=== PATIENT | female | born 1950 | race Caucasian/White ===

== ENCOUNTER 2019-11-21 16:14 | Inpatient (IN) | payer OTHER, MEDICARE ==
--- NOTE | 2019-11-21 17:12 | PDOC ---
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 Per retirement, she fell two days ago, witnessed, no LOC, no head trauma. XR at the retirement shows a lucent area of the pelvis. Sent in for CT pelvis because "it would be faster through the ED than outpatient." On presentation pt complaining of right anterior lower leg pain that has been going on for six weeks. No other complaints. No headache/dizziness/vision changes. No chest pain/shortness of breath. No neck or back pain. No abd pain. No leg swelling. She is crossing and uncrossing her legs in bed and able to sit up without pain. Not able to stand or ambulate but states that this is her baseline (and according to retirement). Past History - Medical History Allergies/Adverse Reactions: Allergies Allergy/AdvReac Type Severity Reaction Status Date / Time Penicillins Allergy Verified 11/21/19 16:16 Sulfa (Sulfonamide Allergy Verified 11/21/19 16:16 Antibiotics) zolpidem tartrate Allergy Verified 11/21/19 16:16 [From Ambien] artificial sweetner Allergy Severe Swelling Uncoded 11/21/19 16:16 Camacho beans Allergy Unknown Uncoded 11/21/19 16:16 Home Medications: Ambulatory Orders Aspirin/Dipyridamole [Aggrenox -] 1 combo PO BID 07/05/13 Cinnamon Bark [Cinnamon] 1,000 mg PO DAILY 07/05/13 Duloxetine HCl [Cymbalta -] 60 mg PO HS 07/05/13 Gabapentin 800 mg PO QID 07/05/13 Metformin HCl [Glucophage] 1,000 mg PO BID 07/05/13 Pravastatin Sodium [Pravachol -] 40 mg PO HS 07/05/13 Sitagliptin Phosphate [Januvia] 50 mg PO DAILY 07/05/13 Clindamycin [Cleocin -] 300 mg PO TID #21 capsule 07/09/13 Insulin (Levemir) [Levemir Flexpen -] 15 units SQ DAILY@0700 #1 pen 07/09/13 Labetalol HCl 600 mg PO BID #60 tablet 07/09/13 Lamotrigine [Lamictal] 25 mg PO DAILY #30 tablet 07/09/13 Magnesium Level 07/09/13 Magnesium Oxide [Magox 400] 400 mg PO BID #60 tablet 07/09/13 Ramipril [Altace] 5 mg PO DAILY #30 capsule 07/09/13 levoFLOXacin [Levaquin -] 500 mg PO DAILY #7 tablet 07/09/13 Cardiac Disorders: Yes (cabg x 4 vessel 2006, htn) CVA: Yes (multiple) COPD: No Diabetes: Yes HTN: Yes Hypercholesterolemia: Yes - Surgical History Cardiac Surgery: Yes (quadruple bypass) Orthopedic Surgery: Yes (3 laminectomies with fusions) - Immunization History Immunization Up to Date: Yes - Psycho-Social/Smoking History Smoking History: Never smoked Have you smoked in the past 12 months: No Information on smoking cessation initiated: No - Substance Abuse Hx (Audit-C & DAST Scrn) How often the patient has a drink containing alcohol: Never Score: In Men: 4 or > Positive; In Women: 3 or > Positive: 0 Screen Result (Pos requires Nsg. Audit-10AR): Negative In the last yr the pt used illegal drug/Rx for NonMed reason: No Score: Yes response is considered Positive: 0 Screen Result (Positive result requires Nsg. DAST-10): Negative Review of Systems - Review of Systems Comments:: GENERAL/CONSTITUTIONAL: No fever or chills. No weakness._ HEAD, EYES, EARS, NOSE AND THROAT: No change in vision. No change in hearing. No sore throat._ CARDIOVASCULAR: No chest pain or shortness of breath_ RESPIRATORY: Denies cough, hemoptysis_ GASTROINTESTINAL: No nausea, vomiting, diarrhea or constipation._ GENITOURINARY: No dysuria, frequency, or change in urination._ MUSCULOSKELETAL: No joint or muscle swelling. Reports chronic right lower leg pain. No neck or back pain._ SKIN: No rash_ NEUROLOGIC: No headache, vertigo, loss of consciousness, or change in strength/sensation._ ENDOCRINE: No increased thirst. No abnormal weight change_ HEMATOLOGIC/LYMPHATIC: No anemia, easy bleeding, or history of blood clots._ ALLERGIC/IMMUNOLOGIC: No hives or skin allergy._ *Physical Exam - Vital Signs Last Vital Signs Temp Pulse Resp BP Pulse Ox 98.4 F 68 18 139/52 L 97 11/21/19 16:15 11/21/19 16:15 11/21/19 16:15 11/21/19 16:15 11/21/19 16:15 - Physical Exam GENERAL: Awake, alert, and oriented to person/place/time, in no acute distress_ HEAD: No signs of trauma, normocephalic, atraumatic _ EYES: PERRLA, EOMI, sclera anicteric, conjunctiva clear_ ENT: Hearing grossly normal, nares patent, oropharynx clear without exudates. No uvular deviation. Moist mucosa_ NECK: Normal ROM, supple, no lymphadenopathy, JVD, or masses_ LUNGS: No distress, speaks in full sentences, clear to auscultation bilaterally _ HEART: Regular rate, normal S1 and S2, no murmurs appreciated, peripheral pulses normal and equal bilaterally._ ABDOMEN: Soft, nontender, normoactive bowel sounds. No guarding, no rebound. No masses_ EXTREMITIES: Mild TTP right anterior tibia with no obvious bruising or trauma. Normal range of motion, no edema. No clubbing or cyanosis. No hip TTP bilaterally. DP/PT pulses 2+ bilaterally. NEUROLOGICAL: Cranial nerves II through XII grossly intact. Dysarthric and mild word finding difficult. Gait not assessed due to inability to bear weight. Mild intention tremor of bilateral upper extremities (known Parkinson's disease). Sensation intact in upper and lower extremities and face. Hip flexion/extension 5/5 strength bilaterally. SKIN: Warm, Dry, normal turgor, no rashes or lesions noted_ Medical Decision Making - Medical Decision Making 11/21/19 17:12 69F sent in from retirement for CT pelvis after fall two days ago and XR pelvis with translucency. On exam pt is able to flex/extend her hips bilaterally, 5/5 strength and sensation lower extremities bilaterally. No hip joint TTP. Able to sit up in bed. Full ROM. 11/21/19 17:22 Shared decision making with the patient and patient's friend at bedside. Reports that she is currently at her baseline neurologically and with regards to ambulation. No indication for CT scan at this time at the pt is not in any pain, crossing/uncrossing her legs, able to sit up, neurovascularly intact distally. Plan to d/c back to rehab to continue care. Discharge - Discharge Information Problems reviewed: Yes Clinical Impression/Diagnosis: Fall Qualifiers: Encounter type: subsequent encounter Qualified Code(s): W19.XXXD - Unspecified fall, subsequent encounter Condition: Stable Disposition: HOME - Admission No - Follow up/Referral - Patient Discharge Instructions - Post Discharge Activity
--- NOTE | 2019-11-21 17:41 | PDOC ---
Documentation entered by Idalia Patel SCRIBE, acting as scribe for Trish Nash MD. Trish Nash MD: This documentation has been prepared by the erikaibeAmanda Sydney, SCRIBE, under my direction and personally reviewed by me in its entirety. I confirm that the documentation accurately reflects all work, treatment, procedures, and medical decision making performed by me. Attending Attestation - Resident Resident Name: Leland Buck - ED Attending Attestation I have performed the following: I have examined & evaluated the patient, The case was reviewed & discussed with the resident, I agree w/resident's findings & plan, Exceptions are as noted - HPI HPI: 11/21/19 17:27 69YOF with h/o multiple CVAs, speech deficits at baseline, Parkinson'sdisease, CKD Stage 3, GERD, and A-fib, who was BIBEMS from her NH for unchanged subacute/chronic hip pain, a fall 2 days ago, and a "lucency on hip x-ray" per the retirement report. She had a NH-reported witnessed GLF without hitting her head or losing consciousness. NH staff note that they decided to send her to the ED for hip/pelvis CT because it would be quicker than doing it as outpatient. The patient herself and her friend who accompanies her note lower right leg pain which has been present for many weeks, prior to the fall. She denies hip pain, states she feels well and wants to go back home. - Physicial Exam PE: GENERAL: elderly, nontoxic-appearing, no distress, answers simple questions appropriately, accompanied by friend standing at bedside who assists in history and states patient is A/O per baseline and mentating at baseline HEENT: no obvious e/o facial or scalp trauma, PERRLA, EOMI without pain CHEST WALL: no costal stepoff or deformity, no bruises or lesions CARDIOVASCULAR: regular rhythm, normal S1S2, no MGR, capillary refill <2 seconds RESPIRATORY: symmetric chest expansion on inspiration, no increased WOB, no cyanosis ABDOMEN: abdomen soft, nondistendedd, nontender, pelvis stable and nonpainful ROM, no bruising EXTREMITIES: no obvious deformity, full ROM without pain BLE hips/knees/ankles, no tenderness to palpation right or left hips to inguinal region or laterally overlying greater trochanter, minimal tenderness to palpation anterior tibia, extremities wwp x4, 2+ radial and DP pulses bilaterally NECK&BACK: no neck or back hematoma, no midline vertebral tenderness C/T/L sp ine, no spinal step-off or deformity, no paraspinous ttp CTL spine NEURO: CN II-XII grossly intact, 5/5 strength and intact sensation throughout BUE and BLE : no CVA tenderness SKIN: warm and dry, no pallor, no lacerations, no abrasions, no contusions or ecchymoses to proximal BLE - Medical Decision Making 69YOF with Parkinsons, multiple CVA, p/w multiple falls over the past few months and sent from [place] for [place] because patient reported vague right hip pain intermittently x weeks. Initial Vital Signs Temp Pulse Resp BP Pulse Ox 98.4 F 68 18 139/52 L 97 11/21/19 16:15 11/21/19 16:15 11/21/19 16:15 11/21/19 16:15 11/21/19 16:15 DDX IBNLT: most likely strain/sprain, osteoarthritis, overuse, hip effusion, less likely hip/pelvis/femur fxr or hip dislocation because the patient has no pain on ROM, no tenderness at this time, and has been c/o this pain reportedly for weeks. TX ordered: None at this time (patient currently states no pain and appears comfortable) NPO until further notice, patient's care endorsed to Dr. Chau at the end of my shift pending further evaluation and workup. Discharge - Discharge Information Problems reviewed: Yes Clinical Impression/Diagnosis: Fall Qualifiers: Encounter type: initial encounter Qualified Code(s): W19.XXXA - Unspecified fall, initial encounter Condition: Stable - Follow up/Referral - Patient Discharge Instructions - Post Discharge Activity
--- NOTE | 2019-11-21 20:19 | PDOC ---
*Physical Exam - Vital Signs Last Vital Signs Temp Pulse Resp BP Pulse Ox 98.4 F 68 18 139/52 L 97 11/21/19 16:15 11/21/19 16:15 11/21/19 16:15 11/21/19 16:15 11/21/19 16:15 ED Treatment Course - LABORATORY CBC & Chemistry Diagram: 11/21/19 22:34 11/21/19 22:34 - ADDITIONAL ORDERS Additional order review: Laboratory Results 11/21/19 20:03 POC Glucometer 152 11/21/19 20:03 POC Glucometer 152 Medical Decision Making - Medical Decision Making 11/21/19 20:[address] hip as originally requested, since pt has right hip pain. We will get a straight cath urine specimen as pt is sundowning. 11/21/19 20:19 Pt is afebrile Pt has normal heart rate. Pt is answering questions. Pt is hallucinating and perhaps sundowning. 11/21/19 21:29 Pt has 8K bacteria in her urine, but no leukocytes, no nitrites; no hematuria and no dysuria. 11/21/19 21:57 Pt has a right hip fracture and she will be admitted; preop labs will be done Discharge - Discharge Information Problems reviewed: Yes Clinical Impression/Diagnosis: Fall Qualifiers: Encounter type: initial encounter Qualified Code(s): W19.XXXA - Unspecified fall, initial encounter Fracture of femoral neck, right, closed Qualifiers: Encounter type: initial encounter Qualified Code(s): S72.001A - Fracture of unspecified part of neck of right femur, initial encounter for closed fracture Condition: Stable - Follow up/Referral - Patient Discharge Instructions - Post Discharge Activity
--- NOTE | 2019-11-21 20:43 | PDOC ---
*Physical Exam - Vital Signs Last Vital Signs Temp Pulse Resp BP Pulse Ox 98.4 F 68 18 139/52 L 97 11/21/19 16:15 11/21/19 16:15 11/21/19 16:15 11/21/19 16:15 11/21/19 16:15 ED Treatment Course - LABORATORY CBC & Chemistry Diagram: 11/21/19 22:34 11/21/19 22:34 - ADDITIONAL ORDERS Additional order review: Laboratory Results 11/21/19 20:03 POC Glucometer 152 11/21/19 20:03 POC Glucometer 152 - RADIOLOGY Radiology Studies Ordered: Category Date Time Status PELVIS CT WITHOUT CONTRAST [CT] Stat CT Scan 11/21/19 20:18 Ordered Medical Decision Making - Medical Decision Making 11/21/19 20:21 Patient previously seen by Dr Buck, plan to discharge back to SNF. Patient's friend at bedside noted that pt was hallucinating, was concerned that she was not herself. Re-examined patient. Significant tenderness at right hip. Pt also with auditory hallucinations, states she is hearing music, and delusional thinking; she believes she is walking a dog at this time. She states that she has had this happen many times in the past. May be baseline, due to sundowning, but cannot r/o underlying cause. Friend at bedside does report that during a prior hospital admission, Ms Ayers became confused and combative. Will send for CT pelvis due to persistent pain. UA/UCx to evaluate for UTI. 11/21/19 22:32 - UA with bacteria but negative for leuk esterase, nitrites. Culture sent - CT with right femoral neck fracture. Preop labs ordered. Orthopedics paged - Will admit, miroblog sent 11/21/19 22:41 - Spoke to Dr Cerna, will come to evaluate. Requesting xrays of hip/femur, DIMITRI yañez. Plan for possible OR tomorrow Discussed with Dr Kandi Nieto PGY3 Discharge - Discharge Information Problems reviewed: Yes Clinical Impression/Diagnosis: Fall Qualifiers: Encounter type: initial encounter Qualified Code(s): W19.XXXA - Unspecified fall, initial encounter Fracture of femoral neck, right, closed Qualifiers: Encounter type: initial encounter Qualified Code(s): S72.001A - Fracture of unspecified part of neck of right femur, initial encounter for closed fracture Condition: Stable - Admission Yes - Follow up/Referral - Patient Discharge Instructions - Post Discharge Activity
[2019-11-21 20:46] LABS: EPI CELLS 5 /uL (0-25.1); HYALINE CASTS 0 /uL (0-3.1); PH,URINE 5.5 (5.0-8.0); URINE APPEARANCE CLEAR; URINE BACTERIA 8071 /uL (0-1359); URINE BILIRUBIN NEGATIVE (NEGATIVE); URINE COLOR YELLOW; URINE GLUCOSE (UA) NEGATIVE (NEGATIVE); URINE KETONE NEGATIVE (NEGATIVE); URINE LEUK ESTERASE NEGATIVE (NEGATIVE); URINE NITRITE NEGATIVE (NEGATIVE); URINE PROTEIN 2+ (NEGATIVE); URINE RBC 10 /uL (0-23.9); URINE UROBILINOGEN 0.2 mg/dL (0.2-1.0); URINE WBC 14 /uL (0-25.8)
--- NOTE | 2019-11-21 22:41 | PN ---
Teaching Attending Note Name of Resident: Dhruv Monteiro ATTENDING PHYSICIAN STATEMENT I saw and evaluated the patient. I reviewed the resident's note and discussed the case with the resident. I agree with the resident's findings and plan as documented. SUBJECTIVE: Patient is 69 year old woman with a PMH of NIDDM, Multiple CVAs (speech deficits at baseline), Parkinson's disease, Middle ear problem, CKD, GERD and Afib who was brought by EMS from her NH for unchanged subacute/chronic hip pain. She felll 2 days ago, and a "lucency was noted on hip x-ray" per the long-term report. She had a NH-reported witnessed fall without hitting her head or losing consciousness. [facility] staff note that they decided to send her to the ER for hip/pelvis CT because it would be quicker than doing it as outpatient. Uses a wheelchair. The patient herself and her friend who accompanied her note lower right leg pain which has been present for many weeks, prior to the fall. She denies fever, chills, nausea, vomiting, SOB, chest pain, abdominal pain, dysuria or diarrhea.Denies alcohol, tobacco or illicit drug use. No sick contacts or recent travels. Patient has a family history of DM in father and sister and breast cancer in sister. OBJECTIVE: Alert Vital Signs Period Temp Pulse Resp BP Sys/Turcios Pulse Ox Last 24 Hr 97.4 F-98.4 F 62-68 18-20 116-139/49-52 95-97 HEENT: No Jaundice, eye redness or discharge, PERRLA, EOMI. Normocephalic, atraumatic. External ears are normal; hearing is impaired. No nasal discharge. Neck: Supple, nontender. No palpable adenopathy or thyromegaly. No JVD Chest: Good effort. Clear to auscultation and percussion. Heart: Regular. No S3, rub or murmur Abdomen: Not distended, soft, nontender and no HSM. No rebound or guarding. Normal bowel sounds. Ext: Peripheral pulses intact. No leg edema. Right hip tenderness. Skin: Warm and dry. No petechiae, rash or ecchymosis. Neuro: Alert. Oriented x3. CN 2-12 grossly intact. Sensation grossly intact in all four extremities and DTR are symmetric. Psych: Appropriate mood and affect. Good insight. Abnormal Lab Results 11/21/19 20:30 Urine Protein 2+ H Current Medications Generic Name Dose Route Start Last Admin Trade Name Freq PRN Reason Stop Dose Admin Carbidopa/Levodopa 1 each 11/22/19 06:00 Sinemet 10/100 - PO TID [facility] Docusate Sodium 100 mg 11/22/19 03:19 Colace - PO BID PRN CONSTIPATION Gabapentin 300 mg 11/22/19 06:00 Neurontin - PO TID [facility] Sodium Chloride 1,000 mls @ 83 mls/hr 11/22/19 03:30 Normal Saline - IV ASDIR [facility] Insulin Aspart 0 vial 11/22/19 07:00 Novolog Vial Sliding Scale - SQ ACHS [facility] Protocol Morphine Sulfate 2 mg 11/22/19 03:19 Morphine Injection - IVPUSH Q4H PRN PAIN LEVEL 7 - 10 Rosuvastatin Calcium 40 mg 11/22/19 10:00 Crestor - PO DAILY [facility] Home Medications Medication Instructions Recorded Apixaban [Eliquis -] 5 mg PO BID 11/21/19 Carbidopa/Levodopa 1 each PO TID 11/21/19 [Carbidopa-Levodopa 10-100 Tab] Cholecalciferol (Vitamin D3) 125 mcg PO DAILY 11/21/19 [Vitamin D3 -] Duloxetine HCl [Cymbalta -] 60 mg PO DAILY 11/21/19 Gabapentin 300 mg PO TID 11/21/19 Multivitamins [Tab-A-Vit -] 1 tab PO DAILY 11/21/19 Medora-3/Dha/Epa/Fish Oil [Medora 3 2 each PO DAILY 11/21/19 500 Softgel] Pantoprazole Sodium [Protonix] 40 mg PO DAILY 11/21/19 Polyethylene Glycol 300 17 gm PO DAILY 11/21/19 Ranolazine [Ranexa] 1,000 mg PO DAILY 11/21/19 Ranolazine [Ranexa] 500 mg PO HS 11/21/19 Rosuvastatin [Crestor -] 40 mg PO DAILY 11/21/19 Sennosides [Senna] 8.6 mg PO DAILY 11/21/19 ASSESSMENT AND PLAN: 1. Right femoral neck fracture - CT scan of hip shows mildly impacted right femoral neck fracture. Will keep her NPO, give IV NS, get PT/INR, use Tylenol for pain control and consult Ortho and PT. Do neurochecks and implement seizure and fall precautions. Viral testing for COVID-19 ordered and patient placed on airborne, droplet and contact isolation. EKG shows NSR at 63/minute, LAE, RBBB and QTc [address]-T wave changes. Will avoid drugs that may prolong QTc. Will continue comprehensive care for all of patients comorbid conditions. 2. DM For now, we will hold the home diabetes drugs and implement sliding scale insulin regimen. Provide comprehensive diabetes care with patient teaching and counseling about the importance of adherence to prescribed diabetes regimen, euglycemia, eye care and foot care. 3. CKD Likely due to DM. Will get kidney sonogram, hydrate gently, monitor urine output and consult Nephrology. Avoid nephrotoxic agents such as NSAIDS, aminoglycosides, contrast dyes and certain Alternative medicine products. 4. Anemia - Likely partly due to CKD. Will do basic anemia work up including serial stool guaiacs, reticulocyte count and iron studies. 5. DVT prophylaxis - Lovenox 40 mg SQ q 24 hours. 6. Advance directives - DNR
[2019-11-21 22:58] LABS: BASO % 0.8 % (0-2.0); EOS % 2.6 % (0-4.5); HEMATOCRIT 31.5 % (32.4-45.2); HEMOGLOBIN 10.1 GM/dL (10.7-15.3); MCH 28.2 pg (25.7-33.7); MCHC 32.1 g/dl (32.0-36.0); MEAN CELL VOLUME 87.8 fl (80-96); MEAN PLT VOLUME 8.8 fl (7.5-11.1); MONO % 8.2 % (3.8-10.2); NEUT % 68.4 % (42.8-82.8); PLATELET COUNT 177 K/MM3 (134-434); RBC 3.59 M/mm3 (3.60-5.2); RDW 18.5 % (11.6-15.6); WHITE BLOOD COUNT 6.4 K/mm3 (4.0-10.0)
[2019-11-21 23:09] LABS: INR 1.48 (0.83-1.09); PROTHROMBIN TIME (PATIENT) 17.5 SEC (9.7-13.0)
[2019-11-21 23:11] LABS: ACTIVATED PTT 41.5 SECONDS (25.2-36.5)
[2019-11-21 23:26] LABS: ALBUMIN 3.4 g/dl (3.4-5.0); BILIRUBIN,TOTAL 0.5 mg/dL (0.2-1); CALCIUM 10.1 mg/dL (8.5-10.1); CREATININE 3.3 mg/dL (0.55-1.3); TOT PROT 6.2 g/dl (6.4-8.2)
--- NOTE | 2019-11-21 23:46 | CONSULT ---
Consult - text type - Consultation Consultation Note: ORTHOPEDIC SURGERY CONSULTATION NOTE Department of Orthopedic Surgery HISTORY OF PRESENT ILLNESS Kailee Ayers is a 69 year old female with a past medical history significant for multiple CVAs, speech deficits at baseline, Parkinson Disease, CKD Stage 3, GERD, and A-fib (on Eliquis). She was sent to [facility] ED from [facility] today after complaining of persistent right hip pain after a mechanical fall. The rehab facility reports a history of two falls in the last three days. Radiographs obtained at the facility were suspicious for a hip fracture, and she was sent here for further evaluation. The patient is a poor historian and the history was obtained by her health care proxy/eyeglass fitter Leti . The patient notes severe pain to the right hip and groin. Denies any other injuries or pain. Denies numbness, tingling or other constitutional complaints. She was admitted to [facility] about 2 weeks ago for hypoglycemia and was not complaining of any hip pain at that time. She was sent to [facility] after discharge. Denies tobacco use, drug use, alcohol abuse. The patient lives in assisted living and uses a walker and wheelchair at baseline. Healthcare proxy Leti ([phone]). Active Problems Problem Status Category Onset Fall Acute Medical Fracture of femoral neck, right, closed Acute Medical Past Medical History OUTFITTER CABIN CVA Cardio/Vascular CAD,HTN,Other Endocrine Diabetes Mellitus Past Surgical History Past Surgical History CABG Social History Smoking history Never smoked Hx Alcohol Use No Usual Living Arrangement Alone ADL Independent Allergies Allergy/AdvReac Type Severity Reaction Status Date / Time Penicillins Allergy Verified 11/21/19 16:16 Sulfa (Sulfonamide Allergy Verified 11/21/19 16:16 Antibiotics) zolpidem tartrate Allergy Verified 11/21/19 16:16 [From Ambien] artificial sweetner Allergy Severe Swelling Uncoded 11/21/19 16:16 Camacho beans Allergy Unknown Uncoded 11/21/19 16:16 Vital Signs (last) Temp Pulse Resp BP Pulse Ox 97.4 F L 62 20 116/49 L 95 11/21/19 21:59 11/21/19 21:59 11/21/19 21:59 11/21/19 21:59 11/21/19 21:59 Intake and Output 11/19/19 11/20/19 11/21/19 23:59 23:59 23:59 Other: Weight 150 lb Height 5 ft 8 in Body Mass Index (BMI) 22.8 Weight Measurement Method Built in Stretcher Scale Laboratory 11/21/19 22:34 11/21/19 22:34 PT with INR 17.50 SEC (9.7-13.0) H 11/21/19 22:34 PTT (Actin FS) 41.5 SECONDS (25.2-36.5) H 11/21/19 22:34 FAMILY HISTORY Reviewed and noncontributory. REVIEW OF SYMPTOMS A twelve-point review of systems was performed and was negative except as noted in HPI. PHYSICAL EXAM Constitutional: Alert and able to follow commands. Right Upper Extremity: No tenderness to palpation. Full passive and active ROM, free from pain. Left Upper Extremity: No tenderness to palpation. Full passive and active ROM, free from pain. Right Lower Extremity: Skin warm, dry, and intact; no lesions, rashes or ulcers noted. Muscle mass equal and symmetric to contralateral side. No atrophy noted. No masses or effusions noted. Pain with log roll and heel strike. Difficulty with SLR. Nontender throughout rest of extremity. No cords or calf tenderness. No significant calf/ankle edema. EHL/TA/GS motor intact; SILT distally; 2+ DP pulses; Cap refill brisk. Tone and reflexes normal. Left Lower Extremity: No tenderness to palpation. No cords or calf tenderness. No significant calf/ankle edema. Full passive and active ROM, free from pain. Joints stable with no pathologic laxity. EHL/TA/GS motor intact; SILT distally; 2+ DP pulses; Cap refill brisk. Tone and reflexes normal. IMAGING I personally reviewed CT images of the right hip. They demonstrate an valgus impacted femoral neck fracture. There appears to some resorption of the fracture ends. ASSESSMENT AND PLAN Kailee Ayers is a 69 year old female presenting status post mechanical falls with a right sided impacted femoral neck fracture. We have reviewed the imaging and clinical findings in detail, as well as their potential implications. I had a long discussion with the patient and her healthcare proxy regarding nonsurgical and surgical treatment options. After informed discussion, they elected to proceed with a CRPP of the right hip. We discussed the risks, benefits, and alternatives to this approach. The risks discussed include nonunion, malunion, avascular necrosis, loss of fixation, hardware failure, persistent pain, infection, bleeding, neurovascular injury, and the need for future surgery including a hemiarthroplasty. Patient will need medical optimization prior to surgery. Will need AP Pelvis radiograph, right hip radiographs, and right femur radiographs (ordered). Plan for surgical stabilization of the fracture when medically cleared. NPO past midnight except meds; hold Eliquis NWB RLE Type and Screen LR 84cc/hr FU Labs All questions were answered. Thank you for involving our team in the care of this patient. Please call us at [phone] with questions
[2019-11-22] MEDS ORDERED: MORPHINE SULFATE 2 MG/ML VIAL IVPUSH PRN (03:19)
[2019-11-22] MEDS ORDERED: DOCUSATE SODIUM 100 MG CAPSULE (FP) PO PRN (03:19)
--- NOTE | 2019-11-22 03:42 | HP ---
CHIEF COMPLAINT: Right hip pain PCP: HISTORY OF PRESENT ILLNESS: 69F w/ pmh of multiple CVAs(x7 with residual word finding difficulties and gait difficulties), parkinson's, CKD, GERD, AFib(Eliquis) sent from [facility] for concern of acute Right hip pain w/ their XR findings showing lucency win the Right femoral head neck junction. Paperwork states that the pt was found down out of bed, screaming and complaining of Right hip pain, possibly on 11/20/19. Pt claims that she fell 4weeks ago. At baseline, she thinks she has been wheelchair-bound for at least the last 2ys. Denies loss of sensation to the legs. Denies LOC, blood loss at scene. Reportedly, [facility] wanted the pt evaluated for a CT hip to determine if the pt sustained a Right femur fracture. ER course was notable for: (1) CT Right hip: mildly impated R femoral neck fx, maybe subacute, Right hip joint effusion. Lower L-spine w/ postsurgical changes (2) Cr 3.3 (3) UA neg LE, neg nitrite, bact 8071, WBC 14, epith 5 (4) consulted Ortho(Nehemiah) who is planning for surgery when medically optimized Recent Travel: denies PAST MEDICAL HISTORY: as above PAST SURGICAL HISTORY: unspecified back surgery Social History: Smoking: denies Alcohol: denies Drugs: denies Allergies Penicillins Allergy (Verified 11/21/19 16:16) Sulfa (Sulfonamide Antibiotics) Allergy (Verified 11/21/19 16:16) zolpidem tartrate [From Ambien] Allergy (Verified 11/21/19 16:16) artificial sweetner Allergy (Severe, Uncoded 11/21/19 16:16) Swelling tingling and swelling of tongue Camacho beans Allergy (Unknown, Uncoded 11/21/19 16:16) HOME MEDICATIONS: Home Medications Medication Instructions Recorded Apixaban [Eliquis -] 5 mg PO BID 11/21/19 Carbidopa/Levodopa 1 each PO TID 11/21/19 [Carbidopa-Levodopa 10-100 Tab] Cholecalciferol (Vitamin D3) 125 mcg PO DAILY 11/21/19 [Vitamin D3 -] Duloxetine HCl [Cymbalta -] 60 mg PO DAILY 11/21/19 Gabapentin 300 mg PO TID 11/21/19 Multivitamins [Tab-A-Vit -] 1 tab PO DAILY 11/21/19 [place]-3/Dha/Epa/Fish Oil [[place] 3 2 each PO DAILY 11/21/19 500 Softgel] Pantoprazole Sodium [Protonix] 40 mg PO DAILY 11/21/19 Polyethylene Glycol 300 17 gm PO DAILY 11/21/19 Ranolazine [Ranexa] 1,000 mg PO DAILY 11/21/19 Ranolazine [Ranexa] 500 mg PO HS 11/21/19 Rosuvastatin [Crestor -] 40 mg PO DAILY 11/21/19 Sennosides [Senna] 8.6 mg PO DAILY 11/21/19 REVIEW OF SYSTEMS CONSTITUTIONAL: Absent: fever, chills, diaphoresis, generalized weakness, malaise, loss of appetite, weight change HEENT: Absent: rhinorrhea, nasal congestion, throat pain, throat swelling, difficulty swallowing, mouth swelling, ear pain, eye pain, visual changes CARDIOVASCULAR: Absent: chest pain, syncope, palpitations, irregular heart rate, lightheadedness, peripheral edema RESPIRATORY: Absent: cough, shortness of breath, dyspnea with exertion, orthopnea, wheezing, stridor, hemoptysis GASTROINTESTINAL: Absent: abdominal pain, abdominal distension, nausea, vomiting, diarrhea, constipation, melena, hematochezia GENITOURINARY: Absent: dysuria, frequency, urgency, hesitancy, hematuria, flank pain, genital pain MUSCULOSKELETAL: chronic inability to ambulate without assistance Absent: myalgia, arthralgia, joint swelling, back pain, neck pain SKIN: Absent: rash, itching, pallor HEMATOLOGIC/IMMUNOLOGIC: Absent: easy bleeding, easy bruising, lymphadenopathy, frequent infections ENDOCRINE: Absent: unexplained weight gain, unexplained weight loss, heat intolerance, cold intolerance NEUROLOGIC: Absent: headache, focal weakness or paresthesias, dizziness, unsteady gait, seizure, mental status changes, bladder or bowel incontinence PSYCHIATRIC: Absent: anxiety, depression, suicidal or homicidal ideation, hallucinations. PHYSICAL EXAMINATION Vital Signs - 24 hr 11/21/19 11/21/19 11/22/19 16:15 21:59 01:27 Temperature 98.4 F 97.4 F L 97.7 F Pulse Rate 68 Pulse Rate [ 62 64 Right Apical] Respiratory 18 20 18 Rate Blood Pressure 139/52 L Blood Pressure 116/49 L 137/61 [Left Arm] O2 Sat by Pulse 97 95 100 Oximetry (%) 11/22/19 01:45 Temperature 98 F Pulse Rate 57 L Pulse Rate [ Right Apical] Respiratory 20 Rate Blood Pressure 121/74 Blood Pressure [Left Arm] O2 Sat by Pulse 97 Oximetry (%) GENERAL: Awake, alert. Oriented to name. Incorrectly and tangentially speaks about different topics. HEAD: Normal with no signs of trauma. EYES: sclera anicteric, conjunctiva clear. EARS, NOSE, THROAT: oropharynx clear without exudates. Moist mucous membranes. NECK: Normal range of motion, supple without lymphadenopathy, JVD, or masses. LUNGS: Breath sounds equal, clear to auscultation bilaterally. No wheezes, and no crackles. No accessory muscle use. HEART: Regular rate and rhythm, normal S1 and S2 without murmur, rub or gallop. ABDOMEN: Soft, nontender, not distended, no guarding, no rebound, no masses. No suprapubic tenderness UPPER EXTREMITIES: 2+ pulses, warm, well-perfused. No cyanosis. No clubbing. No peripheral edema. LOWER EXTREMITIES: Decreased active ROM of the Right hip in flexion, straight leg less than 30degrees above bed with effort. TTP of Right hip. Sensation grossly intact and equal in BLE. 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 Laboratory Results - last 24 hr 11/21/19 11/21/19 11/21/19 20:03 20:30 22:34 WBC 6.4 RBC 3.59 L Hgb 10.1 L Hct 31.5 L MCV 87.8 MCH 28.2 MCHC 32.1 RDW 18.5 H Plt Count 177 MPV 8.8 Absolute Neuts (auto) 4.4 Neutrophils % 68.4 D Lymphocytes % 20.0 D Monocytes % 8.2 D Eosinophils % 2.6 D Basophils % 0.8 Nucleated RBC % 0 PT with INR INR PTT (Actin FS) Sodium Potassium Chloride Carbon Dioxide Anion Gap BUN Creatinine Est GFR (CKD-EPI)AfAm Est GFR (CKD-EPI)NonAf POC Glucometer 152 Random Glucose Calcium Total Bilirubin AST ALT Alkaline Phosphatase Total Protein Albumin Urine Color Yellow Urine Appearance Clear Urine pH 5.5 D Ur Specific [place] 1.015 Urine Protein 2+ H Urine Glucose (UA) Negative Urine Ketones Negative Urine Blood Negative Urine Nitrite Negative Urine Bilirubin Negative Urine Urobilinogen 0.2 Ur Leukocyte Esterase Negative Urine WBC (Auto) 14 Urine RBC (Auto) 10 Urine Casts (Auto) 0 U Epithel Cells (Auto) 5 Urine Bacteria (Auto) 8071 Blood Type Antibody Screen 11/21/19 11/21/19 11/21/19 22:34 22:34 22:34 WBC RBC Hgb Hct MCV MCH MCHC RDW Plt Count MPV Absolute Neuts (auto) Neutrophils % Lymphocytes % Monocytes % Eosinophils % Basophils % Nucleated RBC % PT with INR 17.50 H INR 1.48 H PTT (Actin FS) 41.5 H Sodium 139 Potassium 4.0 Chloride 105 Carbon Dioxide 26 Anion Gap 8 BUN 48.0 H Creatinine 3.3 H Est GFR (CKD-EPI)AfAm 15.72 Est GFR (CKD-EPI)NonAf 13.56 POC Glucometer Random Glucose 165 H Calcium 10.1 Total Bilirubin 0.5 AST 13 L ALT 9 L Alkaline Phosphatase 68 Total Protein 6.2 L Albumin 3.4 Urine Color Urine Appearance Urine pH Ur Specific [place] Urine Protein Urine Glucose (UA) Urine Ketones Urine Blood Urine Nitrite Urine Bilirubin Urine Urobilinogen Ur Leukocyte Esterase Urine WBC (Auto) Urine RBC (Auto) Urine Casts (Auto) U Epithel Cells (Auto) Urine Bacteria (Auto) Blood Type O NEGATIVE Antibody Screen Negative ASSESSMENT/PLAN: 69F w/ pmh of multiple CVAs(x7 with residual word finding difficulties and gait difficulties), parkinson's, CKD, GERD, AFib(Eliquis) sent from [facility] for concern of acute Right hip pain w/ their XR findings showing lucency win the Right femoral head neck junction. Reportedly, [facility] wanted the pt evaluated for a CT hip to determine if the pt sustained a Right femur fracture. CT imaging notable for a Right femoral neck fracture. #Right femoral neck fracture > CT Right hip: mildly impated R femoral neck fx, maybe subacute, Right hip joint effusion. Lower L-spine w/ postsurgical changes - HOLD Eliquis(at least 24-48hs prior to surgery) - Ortho consult(Nehemiah): --medical optimization prior to surgery --rec XR: AP pelvis , R hip, R femur --NWB RLE #TEJA vs CKD > Cr 3.3 - US renal --pending #asymptomatic bactiuria > UA neg LE, neg nitrite, bact 8071, WBC 14, epith 5 - holding tx for now #normocytic anemia --possibly 2/2 CKD - fu iron studies #prolonged QTc > QTc 536 - avoid QTc-prolonging drugs - rpt EKG FEN - NS @83 - NPO DVT PPX - SCDs CODE STATUS: DNR Family Medical History Family History: Unremarkable Visit type - Emergency Visit Emergency Visit: Yes ED Registration Date: 11/21/19 Care time: The patient presented to the Emergency Department on the above date and was hospitalized for further evaluation of their emergent condition. - New Patient This patient is new to me today: Yes Date on this admission: 11/22/19 - Critical Care Critical Care patient: No ATTENDING PHYSICIAN STATEMENT I saw and evaluated the patient. I reviewed the resident's note and discussed the case with the resident. I agree with the resident's findings and plan as documented. SUBJECTIVE: OBJECTIVE: ASSESSMENT AND PLAN:
[2019-11-22] MEDS: SODIUM CHLORIDE 1,000 ML IV SCH ×2 (04:18→17:23)
[2019-11-22] MEDS: GABAPENTIN 300 MG CAPSULE PO SCH ×3 (06:36→21:24)
[2019-11-22] MEDS: INSULIN SLIDING SCALE (NOVOLOG) 1 VIAL SQ SCH ×4 (06:37→21:41)
[2019-11-22] MEDS: CARBIDOPA/LEVODOPA 10/100 TABLET (FP) PO SCH ×3 (06:37→21:25)
[2019-11-22 08:50] LABS: HEMATOCRIT 31.5 % (32.4-45.2); HEMOGLOBIN 10.4 GM/dL (10.7-15.3); MCH 28.6 pg (25.7-33.7); MCHC 32.9 g/dl (32.0-36.0); MEAN CELL VOLUME 86.9 fl (80-96); MEAN PLT VOLUME 9.1 fl (7.5-11.1); PLATELET COUNT 172 K/MM3 (134-434); RBC 3.63 M/mm3 (3.60-5.2); RDW 18.2 % (11.6-15.6); WHITE BLOOD COUNT 5.9 K/mm3 (4.0-10.0)
[2019-11-22 09:18] LABS: BLOOD UREA NITROGEN 45.6 mg/dL (7-18); CALCIUM 10.2 mg/dL (8.5-10.1); MAGNESIUM 2.6 mg/dL (1.8-2.4); POTASSIUM 4.6 mmol/L (3.5-5.1)
[2019-11-22] MEDS ORDERED: RANOLAZINE E.R. 500 MG TABLET (FP) ONE (09:51)
[2019-11-22] MEDS ORDERED: PT OWN MED DRAWER 7, Y5N ONE ×2 (09:51→21:17)
[2019-11-22] MEDS ORDERED: PANTOPRAZOLE 40 MG TABLET PO SCH (10:00)
[2019-11-22] MEDS ORDERED: RANOLAZINE E.R. 1,000 MG TABLET (FP) PO SCH (10:00)
[2019-11-22] MEDS ORDERED: DULoxetine HCL 30 MG CAPSULE.DR PO SCH (10:00)
--- NOTE | 2019-11-22 12:07 | PN ---
Progress Note (short form) - Note Progress Note: ORTHOPEDIC SURGERY PROGRESS NOTE Department of Orthopedic Surgery SUBJECTIVE No acute events overnight. No new complaints currently. Denies chest pain, shortness of breath, or calf pain. No nausea or vomiting. Tolerating oral intake. Pain control difficult overnight, but improving. PHYSICAL EXAMINATION General: Alert, oriented, cooperative and no distress. Right Lower Extremity: Skin warm, dry, and intact; no lesions, rashes or ulcers noted. Muscle mass equal and symmetric to contralateral side. No atrophy noted. No masses or effusions noted. Pain with log roll and heel strike. Difficulty with SLR. Nontender throughout rest of extremity. No cords or calf tenderness. No significant calf/ankle edema. EHL/TA/GS motor intact; SILT distally; 2+ DP pulses; Cap refill brisk. Tone and reflexes normal. DVT Exam: No evidence of DVT seen on physical exam; No cords or calf tenderness; No significant calf/ankle edema. Intake & Output 11/20/19 11/21/19 11/22/19 23:59 23:59 23:59 Other: Voiding Method Diaper Weight 150 lb 193 lb Height 5 ft 8 in 5 ft 8 in Body Mass Index (BMI) 22.8 29.3 Weight Measurement Method Built in Bedscale Weight Measurement Method Built in Stretcher Scale Active Medications Generic Name Dose Route Start Last Admin Trade Name Freq PRN Reason Stop Dose Admin Carbidopa/Levodopa 1 each 11/22/19 06:00 11/22/19 06:37 Sinemet 10/100 - PO 1 each TID DELICIA Administration Docusate Sodium 100 mg 11/22/19 03:19 Colace - PO BID PRN CONSTIPATION Duloxetine HCl 60 mg 11/22/19 10:00 11/22/19 10:03 Cymbalta - PO 60 mg DAILY DELICIA Administration Gabapentin 300 mg 11/22/19 06:00 11/22/19 06:36 Neurontin - PO 300 mg TID DELICIA Administration Sodium Chloride 1,000 mls @ 83 mls/hr 11/22/19 03:30 11/22/19 04:18 Normal Saline - IV 83 mls/hr ASDIR DELICIA Administration Insulin Aspart 1 vial 11/22/19 07:00 11/22/19 11:57 Novolog Vial Sliding Scale - SQ Not Given ACHS DELICIA Protocol Morphine Sulfate 2 mg 11/22/19 03:19 Morphine Sulfate IVPUSH Q4H PRN PAIN LEVEL 7 - 10 Pantoprazole Sodium 40 mg 11/22/19 10:00 11/22/19 10:03 Protonix - PO 40 mg DAILY DELICIA Administration Ranolazine 1,000 mg 11/22/19 10:00 11/22/19 10:04 Ranexa - PO 1,000 mg DAILY DELICIA Administration Ranolazine 500 mg 11/22/19 22:00 Ranexa - PO HS DELICIA Rosuvastatin Calcium 10 mg 11/22/19 22:00 Crestor - PO HS DELICIA Vital Signs (last) Temp Pulse Resp BP Pulse Ox 98.2 F 63 18 121/59 L 100 11/22/19 10:00 11/22/19 10:00 11/22/19 10:00 11/22/19 10:00 11/22/19 10:00 Laboratory (coagulation) PT with INR 17.50 SEC (9.7-13.0) H 11/21/19 22:34 Laboratory 11/22/19 07:50 11/22/19 07:50 IMAGING I personally reviewed radiographs of the right hip and femur. They demonstrate an impacted femoral neck fracture. ASSESSMENT AND PLAN Kailee Ayers is a 69 year old female with a right sided impacted femoral neck fracture. Plan for CRPP of the right hip tomorrow AM; discussed with medical team Patient will need medical optimization prior to surgery. Diet today; NPO past midnight except meds; hold Eliquis Lovenox x 1 dose today for DVT prophylaxis NWB RLE Type and Screen LR 84cc/hr when NPO All questions were answered. Thank you for involving our team in the care of this patient. Please call us at [phone] with questions
--- NOTE | 2019-11-22 12:21 | PN ---
Progress Note, Physician Chief Complaint: No acute events noted, awaiting orthopedic surgery History of Present Illness: 69 year old female with a PMHx of multiple CVAs(x7 with residual word finding difficulties and gait difficulties), Parkinson's, & CKD, sent from [facility] for concern of acute Right hip pain w/ their XR findings showing lucency win the Right femoral head neck junction. Reportedly, [facility] wanted the pt evaluated for a CT hip to determine if the pt sustained a Right femur fracture. CT imaging no table for a Right femoral neck fracture. - Current Medication List Current Medications: Active Medications Carbidopa/Levodopa (Sinemet -) 1 each PO TID [facility] Last Admin: 11/22/19 06:37 Dose: 1 each Documented by: Docusate Sodium (Colace -) 100 mg PO BID PRN PRN Reason: CONSTIPATION Duloxetine HCl (Cymbalta -) 60 mg PO DAILY [facility] Last Admin: 11/22/19 10:03 Dose: 60 mg Documented by: Enoxaparin Sodium (Lovenox -) 40 mg SQ ONCE ONE Stop: 11/22/19 12:16 Gabapentin (Neurontin -) 300 mg PO TID [facility] Last Admin: 11/22/19 06:36 Dose: 300 mg Documented by: Sodium Chloride (Normal Saline -) 1,000 mls @ 83 mls/hr IV ASDIR [facility] Last Admin: 11/22/19 04:18 Dose: 83 mls/hr Documented by: Insulin Aspart (Novolog Vial Sliding Scale -) 1 vial SQ [facility]; Protocol Last Admin: 11/22/19 11:57 Dose: Not Given Documented by: Morphine Sulfate (Morphine Sulfate) 2 mg IVPUSH Q4H PRN PRN Reason: PAIN LEVEL 7 - 10 Pantoprazole Sodium (Protonix -) 40 mg PO DAILY [facility] Last Admin: 11/22/19 10:03 Dose: 40 mg Documented by: Ranolazine (Ranexa -) 1,000 mg PO DAILY [facility] Last Admin: 11/22/19 10:04 Dose: 1,000 mg Documented by: Ranolazine (Ranexa -) 500 mg PO HS DELICIA Rosuvastatin Calcium (Crestor -) 10 mg PO HS [facility] - Objective Vital Signs: Vital Signs Temperature 98.2 F 11/22/19 10:00 Pulse Rate 63 11/22/19 10:00 Respiratory Rate 18 07/18/20 10:00 Blood Pressure 121/59 L 11/22/19 10:00 O2 Sat by Pulse Oximetry (%) 100 11/22/19 10:00 Constitutional: Yes: Well Nourished, No Distress, Calm Eyes: Yes: WNL, Conjunctiva Clear HENT: Yes: WNL, Atraumatic, Normocephalic Neck: Yes: WNL, Supple Cardiovascular: Yes: WNL, Regular Rate and Rhythm Respiratory: Yes: WNL, Regular, CTA Bilaterally Gastrointestinal: Yes: WNL, Normal Bowel Sounds, Soft, Abdomen, Obese Musculoskeletal: Yes: WNL Extremities: Yes: WNL Edema: No Peripheral Pulses WNL: Yes Integumentary: Yes: WNL Wound/Incision: Yes: Clean/Dry, Well Approximated Neurological: Yes: WNL, Alert, Oriented ...Motor Strength: WNL Psychiatric: Yes: WNL, Alert, Oriented Labs: CBC, BMP 11/22/19 07:50 11/22/19 07:50 INR, PTT INR 1.48 (0.83-1.09) H 11/21/19 22:34 Impression/Plan Impression/Plan: 69 year old female with a PMHx of multiple CVAs(x7 with residual word finding difficulties and gait difficulties), Parkinson's, & CKD, sent from [facility] f or concern of acute Right hip pain with their XR findings showing lucency win the Right femoral head neck junction. Reportedly, [facility] wanted the pt evaluated for a CT hip to determine if the pt sustained a Right femur fracture. CT imaging notable for a Right femoral neck fracture. #Right femoral neck fracture > CT Right hip: mildly impated R femoral neck fx, maybe subacute, Right hip joint effusion. Lower L-spine w/ postsurgical changes - Held Eliquis(at least 24-48hs prior to surgery) - Ortho consulted(Nehemiah): --Patient is medically optimized for surgery --NWB RLE --NPO after midnight #TEJA vs CKD > Cr 3.3 now improved to 3.0 -- continue with IV fluids -- US renal --pending -- repeat labs in AM #asymptomatic bactiuria > UA neg LE, neg nitrite, bact 8071, WBC 14, epith 5 -- holding treatment for now #normocytic anemia --possibly 2/2 CKD - fu iron studies #prolonged QTc > QTc 536 - avoid QTc-prolonging drugs - rpt EKG FEN - NS @83 - NPO after midnight DVT PPX - SCDs discussed with orthopedics: patient to be given SQ lovenox 40mg x 1 now CODE STATUS: DNR Visit type - Emergency Visit Emergency Visit: Yes ED Registration Date: 11/21/19 Care time: The patient presented to the Emergency Department on the above date and was hospitalized for further evaluation of their emergent condition. - New Patient This patient is new to me today: Yes Date on this admission: 11/22/19 - Critical Care Critical Care patient: No - Discharge Referral Referred to [facility] Med P.C.: No
--- NOTE | 2019-11-22 14:56 | EKG ---
Test Reason : Blood Pressure : / mmHG Vent. Rate : 062 BPM Atrial Rate : 062 BPM P-R Int : 192 ms QRS Dur : 168 ms QT Int : 524 ms P-R-T Axes : 035 055 023 degrees QTc Int : 531 ms POOR DATA QUALITY, INTERPRETATION MAY BE ADVERSELY AFFECTED NORMAL SINUS RHYTHM POSSIBLE LEFT ATRIAL ENLARGEMENT RIGHT BUNDLE BRANCH BLOCK ABNORMAL ECG WHEN COMPARED WITH ECG OF 21-NOV-2019 22:15, NO SIGNIFICANT CHANGE WAS FOUND PATIENT MOVING DURING EKG Confirmed by OUSMANE ORTIZ MD ([id number]) on 11/22/2019 2:56:22 PM Referred By: Bozena MEREDITH Confirmed By:OUSMANE ORTIZ MD
--- NOTE | 2019-11-22 15:00 | EKG ---
Test Reason : Blood Pressure : / mmHG Vent. Rate : 063 BPM Atrial Rate : 063 BPM P-R Int : 168 ms QRS Dur : 194 ms QT Int : 524 ms P-R-T Axes : 042 056 041 degrees QTc Int : 536 ms NORMAL SINUS RHYTHM POSSIBLE LEFT ATRIAL ENLARGEMENT RIGHT BUNDLE BRANCH BLOCK ABNORMAL ECG WHEN COMPARED WITH ECG OF 07-JUL-2013 08:24, QRS DURATION HAS INCREASED T WAVE INVERSION NO LONGER EVIDENT IN LATERAL LEADS QT HAS LENGTHENED Confirmed by OUSMANE ORTIZ MD ([id number]) on 11/22/2019 2:59:41 PM Referred By: Confirmed By:OUSMANE ORTIZ MD
[2019-11-22] MEDS ORDERED: ENOXAPARIN NA (PORCINE) 40 MG/0.4 ML DISP.SYRIN SQ ONE (15:30)
[2019-11-22] MEDS ORDERED: ENOXAPARIN NA (PORCINE) 30 MG/0.3 ML DISP.SYRIN SQ ONE (18:26)
[2019-11-22] MEDS ORDERED: ROSUVASTATIN CA 10 MG TABLET (FP) PO SCH (22:00)
[2019-11-22] MEDS ORDERED: RANOLAZINE E.R. 500 MG TABLET (FP) PO SCH (22:00)
[2019-11-23] MEDS: SODIUM CHLORIDE 1,000 ML IV SCH ×3 (03:02→15:00)
[2019-11-23] MEDS ORDERED: PT OWN MED DRAWER 7, Y5N ONE (05:33)
[2019-11-23] MEDS: GABAPENTIN 300 MG CAPSULE PO SCH ×3 (06:01→21:53)
[2019-11-23] MEDS: CARBIDOPA/LEVODOPA 10/100 TABLET (FP) PO SCH ×2 (06:01→21:54)
[2019-11-23] MEDS: INSULIN SLIDING SCALE (NOVOLOG) 1 VIAL SQ SCH ×3 (06:02→22:01)
[2019-11-23] MEDS ORDERED: ROCURONIUM BROMIDE 50 MG/5 ML SYRINGE ONE (08:12)
[2019-11-23] MEDS ORDERED: PROPOFOL 20 ML ONE (08:12)
[2019-11-23] MEDS ORDERED: EPHEDRINE SULFATE/0.9% NACL/PF 50 MG/10 ML SYRINGE NR ONE (08:17)
--- NOTE | 2019-11-23 08:39 | PN ---
Progress Note (short form) - Note Progress Note: ORTHOPEDIC SURGERY PROGRESS NOTE Department of Orthopedic Surgery SUBJECTIVE No acute events overnight. No new complaints currently. Denies chest pain, shortness of breath, or calf pain. No nausea or vomiting. Tolerating oral intake. Pain control difficult overnight, but improving. PHYSICAL EXAMINATION General: Alert, oriented, cooperative and no distress. Right Lower Extremity: Skin warm, dry, and intact; no lesions, rashes or ulcers noted. Muscle mass equal and symmetric to contralateral side. No atrophy noted. No masses or effusions noted. Pain with log roll and heel strike. Difficulty with SLR. Nontender throughout rest of extremity. No cords or calf tenderness. No significant calf/ankle edema. EHL/TA/GS motor intact; SILT distally; 2+ DP pulses; Cap refill brisk. Tone and reflexes normal. DVT Exam: No evidence of DVT seen on physical exam; No cords or calf tenderness; No significant calf/ankle edema. Intake & Output 11/21/19 11/22/19 11/23/19 23:59 23:59 23:59 Intake Total 1578 631 Balance 1578 631 Intake: IV 1328 581 Normal Saline - 1,000 ml 1328 581 @ 83 mls/hr IV ASDIR DELICIA Rx#:[id number] Oral 250 50 Other: Voiding Method Incontinent External Catheter # Unmeasured Voids External Catheter 2 1 Bowel Movement No No Weight 150 lb 193 lb 198 lb Height 5 ft 8 in 5 ft 8 in Body Mass Index (BMI) 22.8 29.3 Weight Measurement Method Built in Bedscale Built in Bedscale Weight Measurement Method Built in Stretcher Scale Active Medications Generic Name Dose Route Start Last Admin Trade Name Freq PRN Reason Stop Dose Admin Carbidopa/Levodopa 1 each 11/22/19 06:00 11/23/19 06:01 Sinemet 10/100 - PO 1 each TID DELICIA Administration Docusate Sodium 100 mg 11/22/19 03:19 Colace - PO BID PRN CONSTIPATION Duloxetine HCl 60 mg 11/22/19 10:00 11/22/19 10:03 Cymbalta - PO 60 mg DAILY DELICIA Administration Gabapentin 300 mg 11/22/19 06:00 11/23/19 06:01 Neurontin - PO 300 mg TID DELICIA Administration Sodium Chloride 1,000 mls @ 83 mls/hr 11/22/19 03:30 11/23/19 06:02 Normal Saline - IV 83 mls/hr ASDIR DELICIA Administration Insulin Aspart 1 vial 11/22/19 07:00 11/23/19 06:02 Novolog Vial Sliding Scale - SQ Not Given ACHS DELICIA Protocol Morphine Sulfate 2 mg 11/22/19 03:19 Morphine Sulfate IVPUSH Q4H PRN PAIN LEVEL 7 - 10 Pantoprazole Sodium 40 mg 11/22/19 10:00 11/22/19 10:03 Protonix - PO 40 mg DAILY DELICIA Administration Ranolazine 1,000 mg 11/22/19 10:00 11/22/19 10:04 Ranexa - PO 1,000 mg DAILY DELICIA Administration Ranolazine 500 mg 11/22/19 22:00 11/22/19 21:24 Ranexa - PO 500 mg HS DELICIA Administration Rosuvastatin Calcium 10 mg 11/22/19 22:00 11/22/19 21:24 Crestor - PO 10 mg HS DELICIA Administration Vital Signs (last) Temp Pulse Resp BP Pulse Ox 97.6 F 63 18 131/78 97 11/23/19 06:00 11/23/19 06:00 11/23/19 06:00 11/23/19 06:00 11/23/19 06:00 Laboratory (coagulation) PT with INR 17.50 SEC (9.7-13.0) H 11/21/19 22:34 Laboratory 11/22/19 07:50 11/22/19 07:50 IMAGING I personally reviewed radiographs of the right hip and femur. They demonstrate an impacted femoral neck fracture. ASSESSMENT AND PLAN Kailee Ayers is a 69 year old female with a right sided impacted femoral neck fracture. Plan for right hip CRPP today Medical clearance appreciated NPO NWB RLE LR 84cc/hr while NPO All questions were answered. Thank you for involving our team in the care of this patient. Please call us at [phone] with questions
--- NOTE | 2019-11-23 08:55 | PN ---
Progress Note, Physician - Current Medication List Current Medications: Active Medications Carbidopa/Levodopa (Sinemet 10/100 -) 1 each PO TID [facility] Last Admin: 11/23/19 06:01 Dose: 1 each Documented by: Docusate Sodium (Colace -) 100 mg PO BID PRN PRN Reason: CONSTIPATION Duloxetine HCl (Cymbalta -) 60 mg PO DAILY [facility] Last Admin: 11/22/19 10:03 Dose: 60 mg Documented by: Gabapentin (Neurontin -) 300 mg PO TID [facility] Last Admin: 11/23/19 06:01 Dose: 300 mg Documented by: Sodium Chloride (Normal Saline -) 1,000 mls @ 83 mls/hr IV ASDIR [facility] Last Admin: 11/23/19 06:02 Dose: 83 mls/hr Documented by: Insulin Aspart (Novolog Vial Sliding Scale -) 1 vial SQ [facility]; Protocol Last Admin: 11/23/19 06:02 Dose: Not Given Documented by: Morphine Sulfate (Morphine Sulfate) 2 mg IVPUSH Q4H PRN PRN Reason: PAIN LEVEL 7 - 10 Pantoprazole Sodium (Protonix -) 40 mg PO DAILY [facility] Last Admin: 11/22/19 10:03 Dose: 40 mg Documented by: Ranolazine (Ranexa -) 1,000 mg PO DAILY [facility] Last Admin: 11/22/19 10:04 Dose: 1,000 mg Documented by: Ranolazine (Ranexa -) 500 mg PO [facility] Last Admin: 11/22/19 21:24 Dose: 500 mg Documented by: Rosuvastatin Calcium (Crestor -) 10 mg PO [facility] Last Admin: 11/22/19 21:24 Dose: 10 mg Documented by: - Objective Vital Signs: Vital Signs Temperature 97.6 F 11/23/19 06:00 Pulse Rate 63 11/23/19 06:00 Respiratory Rate 18 11/23/19 06:00 Blood Pressure 131/78 11/23/19 06:00 O2 Sat by Pulse Oximetry (%) 97 11/23/19 06:00 Labs: CBC, BMP 11/22/19 07:50 11/22/19 07:50 INR, PTT INR 1.48 (0.83-1.09) H 11/21/19 22:34
[2019-11-23] MEDS ORDERED: CLINDAMYCIN PHOSPHATE 600 MG/4 ML VIAL IVPB ONE (09:05)
[2019-11-23] MEDS ORDERED: CLINDAMYCIN PHOSPHATE 600 MG/4 ML VIAL ONE (09:14)
[2019-11-23] MEDS ORDERED: NEOSTIGMINE METHYLSULFATE 0.5 MG/ML - 10 ML MDV ONE (09:49)
[2019-11-23] MEDS ORDERED: BUPIVACAINE HCL/PF 0.25% (2.5MG/ML) 10 ML VIAL ONE (10:40)
[2019-11-23] MEDS ORDERED: BUPIVACAINE HCL/PF 0.25% (2.5MG/ML) 10 ML VIAL IJ ONE (10:42)
[2019-11-23] MEDS ORDERED: ACETAMINOPHEN 1000 MG/100 ML VIAL (NON FORMULARY) IVPB ONE ×2 (10:56→11:24)
[2019-11-23] MEDS ORDERED: ACETAMINOPHEN INJECTION 100 ML IVPB ONE (11:03)
--- NOTE | 2019-11-23 11:20 | OPR ---
OPERATIVE NOTE TITLE OF PROCEDURE: Percutaneous Fixation of Right Femoral Neck Fracture (CPT 19253) INDICATIONS: Kailee Ayers is a 69 year old female, who presented with a right impacted femoral neck fracture. The treatment options and alternatives, surgical procedure, risks and benefits, and post-operative course were discussed with the patient. Surgery was indicated for reduction and stabilization of the fracture to prevent injury and allow healing. They elected to proceed and consents were signed. PREOPERATIVE DIAGNOSIS: Right valgus impacted femoral neck fracture POSTOPERATIVE DIAGNOSIS: Right valgus impacted femoral neck fracture SURGEON: Omar Cerna DO PHOTO SPECIALIST: Easton Urbina DO ANESTHESIA: Spinal SPECIMENS: None IMPLANT: John 8.0 mm and 6.5 mm Cannulated Screws PROCEDURE DETAILS: Before surgery, the patient was seen and identified in the preoperative holding area. The consent and planned procedure was again discussed with the patient and her health care proxy, and all questions were answered. The operative site was marked. After obtaining informed consent, the patient was brought to the operating room and placed supine on the operating table. After appropriate anesthetic induction, the patient was positioned and secured to the fracture table. The left upper extremity was placed upon a well padded armrest and the ulnar nerve was protected with an egg-crate. The right upper extremity was positioned over a pillow across the chest. The left leg, which had an SCD that was on and operating, was brought into the scissor position. The left peroneal nerve was padded and protected with egg-crate. The right lower extremity was then isolated and pre-scrubbed with chlorhexidine. The right lower extremity was then prepped and draped in the usual surgical sterile fashion. A time-out was performed and we verified site and side of surgery and administration of pre- operative antibiotics. We used fluoroscopy throughout the procedure to help guide placement of the guide wires and screws. We marked an incision along the lateral aspect of the femur distal to the vastus ridge about 3 cm in length and an incision was made through the skin. Sharp dissection was carried out to the level of the IT fascia. This was divided also in line with the skin incision. The lateral femur was directly palpated. A terminally threaded guidewire was advanced to the the lateral cortex of the proximal femur above the level of the lesser trochanter. Biplanar fluoroscopy was used to piano builder positioning. The guidewire was then placed through the lateral cortex along the central inferior portion along the inferior cortex of the femoral neck. We placed a second guidewire in the anterior-superior femoral neck and into the femoral head and a third wire along the posterior superior femoral neck to complete an inverted triangle. Guidewire lengths were judged fluoroscopically. We were careful to purchase subchondral bone without penetrating the femoral head cartilage. We then measured lengths of the screws. We drilled the cannulated drill over the guidewires to the femoral neck. We then placed an 8.0 mm diameter screw inferiorly and two 6.5 mm diameter screws superiorly. They were placed into the femoral head with excellent purchase on the lateral cortex. Fluoroscopy was used to verify screw length and that no screws violating the femoral head articular surface on multiple views. The hip was taken through range of motion and was smooth through a full range of motion. The wound was then copiously irrigated. Final films were obtained. We c losed the deep tissue with 0 Vicryl suture. The skin was closed with 2-0 Vicryl and nella. Xeroform and a sterile dressing was applied. Anesthesia was reversed and the patient was transferred to hospital bed. ESTIMATED BLOOD LOSS: 25 mL. POSTOPERATIVE PLAN: The patient will be allowed toe-touch weight-bearing from postoperative day 1, advancing to WBAT in 6-8 weeks. Follow up in the office in 2 weeks for wound check. DVT prophylaxis with lovenox (40 mg daily if ClCr >30 mL/min, or 30 mg daily if ClCr <30 mL/min) beginning tomorrow 10 am. She may be switched to Eliquis 48 hours after surgery (POD#2).
[2019-11-23] MEDS ORDERED: SODIUM CHLORIDE 1,000 ML IV SCH (11:24)
[2019-11-23] MEDS ORDERED: DOCUSATE SODIUM 100 MG CAPSULE (FP) PO PRN (11:24)
[2019-11-23] MEDS ORDERED: MORPHINE SULFATE 2 MG/ML VIAL IVPUSH PRN ×2 (11:24→13:24)
[2019-11-23 11:39] LABS: HEMATOCRIT 29.6 % (32.4-45.2); HEMOGLOBIN 9.5 GM/dL (10.7-15.3); MCH 28.3 pg (25.7-33.7); MCHC 32.2 g/dl (32.0-36.0); MEAN CELL VOLUME 87.8 fl (80-96); MEAN PLT VOLUME 8.9 fl (7.5-11.1); PLATELET COUNT 163 K/MM3 (134-434); RBC 3.37 M/mm3 (3.60-5.2); RDW 18.1 % (11.6-15.6); WHITE BLOOD COUNT 4.8 K/mm3 (4.0-10.0)
[2019-11-23 12:07] LABS: BLOOD UREA NITROGEN 35.7 mg/dL (7-18); CALCIUM 8.8 mg/dL (8.5-10.1); CREATININE 2.4 mg/dL (0.55-1.3); POTASSIUM 3.8 mmol/L (3.5-5.1)
--- NOTE | 2019-11-23 13:16 | PN ---
Progress Note, Physician Chief Complaint: Fall Right femoral neck fracture S/P Percutaneous Fixation of Right Femoral Neck Fracture History of Present Illness: NAD Lethargic post op - Current Medication List Current Medications: Active Medications Carbidopa/Levodopa (Sinemet 10/ -) 1 each PO TID [facility] Docusate Sodium (Colace -) 100 mg PO BID PRN PRN Reason: CONSTIPATION Duloxetine HCl (Cymbalta -) 60 mg PO DAILY [facility] Gabapentin (Neurontin -) 300 mg PO TID [facility] Clindamycin Phosphate (Cleocin 600 Mg Premix Ivpb -) 600 mg in 50 mls @ 100 mls/hr IVPB Q8H [facility]; Protocol Stop: 11/24/19 01:29 Sodium Chloride (Normal Saline -) 1,000 mls @ 83 mls/hr IV ASDIR [facility] Insulin Aspart (Novolog Vial Sliding Scale -) 1 vial SQ ACHS [facility]; Protocol Morphine Sulfate (Morphine Sulfate) 2 mg IVPUSH Q4H PRN PRN Reason: PAIN LEVEL 7 - 10 Pantoprazole Sodium (Protonix -) 40 mg PO DAILY [facility] Ranolazine (Ranexa -) 1,000 mg PO DAILY [facility] Ranolazine (Ranexa -) 500 mg PO HS [facility] Rosuvastatin Calcium (Crestor -) 10 mg PO HS [facility] - Objective Vital Signs: Vital Signs Temperature 97.5 F L 11/23/19 11:55 Pulse Rate 65 11/23/19 11:55 Respiratory Rate 18 11/23/19 11:55 Blood Pressure 122/61 11/23/19 11:55 O2 Sat by Pulse Oximetry (%) 100 11/23/19 11:55 Constitutional: Yes: Well Nourished, No Distress, Calm Cardiovascular: Yes: Regular Rate and Rhythm Respiratory: Yes: Regular, CTA Bilaterally Gastrointestinal: Yes: Normal Bowel Sounds, Soft Genitourinary: Yes: Incontinence Musculoskeletal: Yes: Muscle Weakness Edema: No Peripheral Pulses WNL: Yes Neurological: Yes: Alert, Pre-Existing Deficit Psychiatric: Yes: Alert Labs: CBC, BMP 11/23/19 11:15 11/23/19 11:15 INR, PTT INR 1.48 (0.83-1.09) H 11/21/19 22:34 Problem List - Problems (1) TEJA (acute kidney injury) Assessment/Plan: -Nephrology consult -U/S renal: BL renal cyst -Continue IVF -Monitor trend Problems reviewed: Yes Code(s): N17.9 - ACUTE KIDNEY FAILURE, UNSPECIFIED (2) Anemia Assessment/Plan: -Trending down -Iron % low -Injectafer once -Iron polysaccharide 150 mg po daily -Also check B 12, thyroid profile and stool OB Problems reviewed: Yes Code(s): D64.9 - ANEMIA, UNSPECIFIED (3) Fall Assessment/Plan: -Safety precautions -Physical therapy -SNF Problems reviewed: Yes Code(s): W19.XXXA - UNSPECIFIED FALL, INITIAL ENCOUNTER Qualifiers: Encounter type: initial encounter Qualified Code(s): W19.XXXA - Unspecified fall, initial encounter (4) Fracture of femoral neck, right, closed Assessment/Plan: -Seen by orthopedic surgery -S/P right femoral neck fixation -Physical therapy -Pain management: Acetaminophen 1g Q6H PRN for pain 1-5 Morphine sulfate 2 mg IVP Q4H PRN for pain 6-10 Problems reviewed: Yes Code(s): S72.001A - FRACTURE OF UNSP PART OF NECK OF RIGHT FEMUR, INIT Qualifiers: Encounter type: initial encounter Qualified Code(s): S72.001A - Fracture of unspecified part of neck of right femur, initial encounter for closed fracture (5) Altered mental state Assessment/Plan: -At baseline Problems reviewed: Yes Code(s): R41.82 - ALTERED MENTAL STATUS, UNSPECIFIED (6) Diabetes mellitus Assessment/Plan: -Recheck A1c -not on any hypoglycemics -If A1c <6.5, d/c BGM and ISS -Continue current diet Problems reviewed: Yes Code(s): E11.9 - TYPE 2 DIABETES MELLITUS WITHOUT COMPLICATIONS Assessment/Plan See problem list
[2019-11-23 13:21] LABS: INR 1.29 (0.83-1.09); PROTHROMBIN TIME (PATIENT) 15.3 SEC (9.7-13.0)
[2019-11-23 13:24] LABS: ACTIVATED PTT 38.5 SECONDS (25.2-36.5)
[2019-11-23] MEDS ORDERED: ACETAMINOPHEN 500 MG TABLET (FP) PO PRN (13:24)
[2019-11-23] MEDS ORDERED: FERRIC CARBOXYMALTOSE 750 MG in SODIUM CHLORIDE 250 ML IVPB ONE (13:30)
[2019-11-23] MEDS ORDERED: CARBIDOPA/LEVODOPA 10/100 TABLET (FP) PO SCH (14:00)
[2019-11-23] MEDS: DOCUSATE SODIUM 100 MG CAPSULE (FP) PO PRN (15:04)
[2019-11-23] MEDS: MORPHINE SULFATE 2 MG/ML VIAL IVPUSH PRN ×2 (15:21→19:00)
[2019-11-23] MEDS ORDERED: INSULIN SLIDING SCALE (NOVOLOG) 1 VIAL SQ SCH (16:30)
[2019-11-23] MEDS ORDERED: CLINDAMYCIN 600MG PREMIX IVPB 600 MG/50 ML BAG IVPB SCH (17:00)
[2019-11-23] MEDS: CLINDAMYCIN 600MG PREMIX IVPB 600 MG/50 ML BAG IVPB SCH (17:31)
[2019-11-23] MEDS: ACETAMINOPHEN 500 MG TABLET (FP) PO PRN (18:08)
[2019-11-23] MEDS: ROSUVASTATIN CA 10 MG TABLET (FP) PO SCH (21:53)
[2019-11-23] MEDS: RANOLAZINE E.R. 500 MG TABLET (FP) PO SCH (21:54)
[2019-11-23] MEDS ORDERED: ROSUVASTATIN CA 10 MG TABLET (FP) PO SCH (22:00)
[2019-11-23] MEDS ORDERED: RANOLAZINE E.R. 500 MG TABLET (FP) PO SCH (22:00)
[2019-11-24] MEDS: CLINDAMYCIN 600MG PREMIX IVPB 600 MG/50 ML BAG IVPB SCH ×2 (01:04→10:06)
[2019-11-24] MEDS: SODIUM CHLORIDE 1,000 ML IV SCH (01:06)
[2019-11-24] MEDS: MORPHINE SULFATE 2 MG/ML VIAL IVPUSH PRN ×2 (02:21→12:38)
[2019-11-24] MEDS: GABAPENTIN 300 MG CAPSULE PO SCH ×3 (05:20→21:57)
[2019-11-24] MEDS: CARBIDOPA/LEVODOPA 10/100 TABLET (FP) PO SCH ×3 (05:20→21:58)
[2019-11-24] MEDS: INSULIN SLIDING SCALE (NOVOLOG) 1 VIAL SQ SCH ×4 (06:09→22:04)
--- NOTE | 2019-11-24 07:19 | PN ---
Progress Note, Physician - Current Medication List Current Medications: Active Medications Acetaminophen (Tylenol -) 1,000 mg PO Q6H PRN PRN Reason: PAIN LEVEL 1-5 Last Admin: 11/23/19 18:08 Dose: 1,000 mg Documented by: Apixaban (Eliquis -) 5 mg PO BID [facility] Carbidopa/Levodopa (Sinemet 10/100 -) 1 each PO TID [facility] Last Admin: 11/24/19 05:20 Dose: 1 each Documented by: Docusate Sodium (Colace -) 100 mg PO BID PRN PRN Reason: CONSTIPATION Last Admin: 11/23/19 15:04 Dose: 100 mg Documented by: Duloxetine HCl (Cymbalta -) 60 mg PO DAILY [facility] Enoxaparin Sodium (Lovenox -) 30 mg SQ ONCE ONE Stop: 11/24/19 10:01 Gabapentin (Neurontin -) 300 mg PO TID [facility] Last Admin: 11/24/19 05:20 Dose: 300 mg Documented by: Clindamycin Phosphate (Cleocin 600 Mg Premix Ivpb -) 600 mg in 50 mls @ 100 mls/hr IVPB Q8H [facility]; Protocol Stop: 11/24/19 16:59 Last Admin: 11/24/19 01:04 Dose: 100 mls/hr Documented by: Sodium Chloride (Normal Saline -) 1,000 mls @ 83 mls/hr IV ASDIR [facility] Last Admin: 11/24/19 01:06 Dose: 83 mls/hr Documented by: Insulin Aspart (Novolog Vial Sliding Scale -) 1 vial SQ ACHS [facility]; Protocol Last Admin: 11/24/19 06:09 Dose: Not Given Documented by: Morphine Sulfate (Morphine Sulfate) 2 mg IVPUSH Q4H PRN PRN Reason: PAIN LEVEL 6-10 Last Admin: 11/24/19 02:21 Dose: 2 mg Documented by: Pantoprazole Sodium (Protonix -) 40 mg PO DAILY [facility] Polyethylene Glycol (Miralax (For Daily Use) -) 17 gm PO DAILY [facility] Polysaccharide Iron Complex (Niferex-150 -) 150 mg PO DAILY [facility] Ranolazine (Ranexa -) 1,000 mg PO DAILY [facility] Ranolazine (Ranexa -) 500 mg PO HS [facility] Last Admin: 11/23/19 21:54 Dose: 500 mg Documented by: Rosuvastatin Calcium (Crestor -) 10 mg PO HS [facility] Last Admin: 11/23/19 21:53 Dose: 10 mg Documented by: - Objective Vital Signs: Vital Signs Temperature 97.4 F L 11/24/19 05:04 Pulse Rate 94 H 11/24/19 05:04 Respiratory Rate 18 11/24/19 05:04 Blood Pressure 123/58 L 11/24/19 05:04 O2 Sat by Pulse Oximetry (%) 90 L 11/24/19 05:04 Cardiovascular: Yes: S1, S2 Respiratory: Yes: Regular, CTA Bilaterally Gastrointestinal: Yes: Normal Bowel Sounds, Soft Edema: No Wound/Incision: Yes: Margar[place] Intact Labs: CBC, BMP 11/23/19 11:15 11/23/19 11:15 INR, PTT INR 1.29 (0.83-1.09) H 11/23/19 12:37 Assessment/Plan - Problems (1) TEJA (acute kidney injury) Assessment/Plan: -Nephrology consult -U/S renal: BL renal cyst -Continue IVF -Monitor trend Problems reviewed: Yes Code(s): N17.9 - ACUTE KIDNEY FAILURE, UNSPECIFIED (2) Anemia Assessment/Plan: -Trending down -Iron % low -Injectafer once -Iron polysaccharide 150 mg po daily -Also check B 12, thyroid profile and stool OB Problems reviewed: Yes Code(s): D64.9 - ANEMIA, UNSPECIFIED (3) Fall Assessment/Plan: -Safety precautions -Physical therapy -SNF Problems reviewed: Yes Code(s): W19.XXXA - UNSPECIFIED FALL, INITIAL ENCOUNTER Qualifiers: Encounter type: initial encounter Qualified Code(s): W19.XXXA - Unspecified fall, initial encounter (4) Fracture of femoral neck, right, closed Assessment/Plan: -Seen by orthopedic surgery -S/P right femoral neck fixation -Physical therapy -Pain management: Acetaminophen 1g Q6H PRN for pain 1-5 Morphine sulfate 2 mg IVP Q4H PRN for pain 6-10 Problems reviewed: Yes Code(s): S72.001A - FRACTURE OF UNSP PART OF NECK OF RIGHT FEMUR, INIT Qualifiers: Encounter type: initial encounter Qualified Code(s): S72.001A - Fracture of unspecified part of neck of right femur, initial encounter for closed fracture (5) Altered mental state Assessment/Plan: -At baseline Problems reviewed: Yes Code(s): R41.82 - ALTERED MENTAL STATUS, UNSPECIFIED (6) Diabetes mellitus Assessment/Plan: -Recheck A1c -not on any hypoglycemics -If A1c <6.5, d/c BGM and ISS -Continue current diet Problems reviewed: Yes Code(s): E11.9 - TYPE 2 DIABETES MELLITUS WITHOUT COMPLICATIONS
--- NOTE | 2019-11-24 08:19 | PN ---
Progress Note (short form) - Note Progress Note: ORTHOPEDIC SURGERY PROGRESS NOTE Department of Orthopedic Surgery SUBJECTIVE No acute events overnight. No complaints currently. Confused. Denies chest pain, shortness of breath, or calf pain. No nausea or vomiting. Pain control difficult overnight, but improving. Patient removed her surgical dressing overnight, however overnight nurse did not inform anyone of this until the day nurse told me this morning. PHYSICAL EXAMINATION General: Alert, oriented, cooperative and no distress. Lower Extremity: [place] intact. No drainage or signs of infection. Compartments soft. Muscle mass equal and symmetric to contralateral side. No atrophy noted. No masses or effusions noted. No tenderness to palpation. Full passive and active ROM, free from pain. Motor/sensory exam unable to be peformed due to poor compliance with exam. 2+ DP pulses; Cap refill brisk. DVT Exam: No evidence of DVT seen on physical exam; No cords or calf tenderness; No significant calf/ankle edema. Intake & Output 11/22/19 11/23/19 11/24/19 23:59 23:59 23:59 Intake Total 1578 2513 Output Total 10 Balance 1578 2503 Intake: IV 1328 2213 Normal Saline - 1,000 ml 1328 1513 @ 83 mls/hr IV ASDIR [facility] Rx#:[id number] IVPB 50 Oral 250 250 Output: Estimated Blood Loss 10 Other: Voiding Method Incontinent Incontinent # Unmeasured Voids External Catheter 2 1 Void 1 2 Bowel Movement No No No Weight 193 lb 198 lb 157 lb 6.4 oz Height 5 ft 8 in Body Mass Index (BMI) 29.3 Weight Measurement Method [facility] Active Medications Generic Name Dose Route Start Last Admin Trade Name Freq PRN Reason Stop Dose Admin Acetaminophen 1,000 mg 11/23/19 14:42 11/23/19 18:08 Tylenol - PO 1,000 mg Q6H PRN Administration PAIN LEVEL 1-5 Apixaban 5 mg 11/25/19 10:00 Eliquis - PO BID [facility] Carbidopa/Levodopa 1 each 11/23/19 22:00 11/24/19 05:20 Sinemet 10/100 - PO 1 each TID [facility] Administration Docusate Sodium 100 mg 11/23/19 14:44 11/23/19 15:04 Colace - PO 100 mg BID PRN Administration CONSTIPATION Duloxetine HCl 60 mg 11/24/19 10:00 Cymbalta - PO DAILY [facility] Enoxaparin Sodium 30 mg 11/24/19 10:00 Lovenox - SQ 11/24/19 10:01 ONCE ONE Gabapentin 300 mg 11/23/19 14:00 11/24/19 05:20 Neurontin - PO 300 mg TID [facility] Administration Clindamycin Phosphate 600 mg in 50 mls @ 100 mls/hr 11/23/19 17:00 11/24/19 01:04 Cleocin 600 Mg Premix Ivpb - IVPB 11/24/19 16:59 100 mls/hr Q8H [facility] Administration Protocol Sodium Chloride 1,000 mls @ 83 mls/hr 11/23/19 14:45 11/24/19 01:06 Normal Saline - IV 83 mls/hr ASDIR [facility] Administration Insulin Aspart 1 vial 11/23/19 16:30 11/24/19 06:09 Novolog Vial Sliding Scale - SQ Not Given ACHS [facility] Protocol Morphine Sulfate 2 mg 11/23/19 14:45 11/24/19 02:21 Morphine Sulfate IVPUSH 2 mg Q4H PRN Administration PAIN LEVEL 6-10 Pantoprazole Sodium 40 mg 11/24/19 10:00 Protonix - PO DAILY [facility] Polyethylene Glycol 17 gm 11/24/19 10:00 Miralax (For Daily Use) - PO DAILY [facility] Polysaccharide Iron Complex 150 mg 11/24/19 10:00 Niferex-150 - PO DAILY [facility] Ranolazine 1,000 mg 11/24/19 10:00 Ranexa - PO DAILY [facility] Ranolazine 500 mg 11/23/19 22:00 11/23/19 21:54 Ranexa - PO 500 mg HS [facility] Administration Rosuvastatin Calcium 10 mg 11/23/19 22:00 11/23/19 21:53 Crestor - PO 10 mg HS [facility] Administration Vital Signs (last) Temp Pulse Resp BP Pulse Ox 97.4 F L 94 H 18 123/58 L 90 L 11/24/19 05:04 11/24/19 05:04 11/24/19 05:04 11/24/19 05:04 11/24/19 05:04 Laboratory (coagulation) PT with INR 15.30 SEC (9.7-13.0) H 11/23/19 12:37 Laboratory 11/23/19 11:15 11/23/19 11:15 IMAGING Radiographs of the right hip show intact hardware no change in fracture alignment. ASSESSMENT AND PLAN Kailee Ayers is a 69 year old female status post right hip CRPP. POD#1. Hemodynamically stable. - Incision cleaned and sterile dressing applied. Dressing reinforced with kerlex dressing loosely around thigh. Daily dressing changes. I discussed with nurse to monitor that she does not remove her dressing, and to inform me MIRANDA - Pain control: Transition to oral pain medications, minimize narcotic use - DVT prophylaxis - Ice/Elevation - Elevate HOB, encourage oral intake - Appreciate medical management - Nutrition optimization - Decubitus precautions heel/sacrum - PT/OT; TTWB RLE
[2019-11-24] MEDS ORDERED: RANOLAZINE E.R. 500 MG TABLET (FP) ONE (09:49)
[2019-11-24] MEDS ORDERED: DULoxetine HCL 30 MG CAPSULE.DR PO SCH (10:00)
[2019-11-24] MEDS ORDERED: RANOLAZINE E.R. 1,000 MG TABLET (FP) PO SCH (10:00)
[2019-11-24] MEDS ORDERED: POLYETHYLENE GLYCOL 3350 119 GM BTL PO SCH (10:00)
[2019-11-24] MEDS ORDERED: PANTOPRAZOLE 40 MG TABLET PO SCH (10:00)
[2019-11-24] MEDS ORDERED: ENOXAPARIN NA (PORCINE) 30 MG/0.3 ML DISP.SYRIN SQ ONE ×2 (10:00)
[2019-11-24] MEDS ORDERED: IRON POLYSACCHARIDES 150 MG CAPSULE PO SCH (10:00)
[2019-11-24] MEDS: DULoxetine HCL 30 MG CAPSULE.DR PO SCH (10:07)
[2019-11-24] MEDS: POLYETHYLENE GLYCOL 3350 119 GM BTL PO SCH (10:07)
[2019-11-24] MEDS: IRON POLYSACCHARIDES 150 MG CAPSULE PO SCH (10:07)
[2019-11-24] MEDS: PANTOPRAZOLE 40 MG TABLET PO SCH (10:07)
[2019-11-24] MEDS: RANOLAZINE E.R. 1,000 MG TABLET (FP) PO SCH (10:08)
[2019-11-24 11:51] LABS: MCH 28.3 pg (25.7-33.7); MEAN CELL VOLUME 88.4 fl (80-96); PLATELET COUNT 198 K/MM3 (134-434); RBC 3.17 M/mm3 (3.60-5.2); RDW 18.3 % (11.6-15.6)
[2019-11-24 12:14] LABS: BLOOD UREA NITROGEN 32.1 mg/dL (7-18); CALCIUM 9.6 mg/dL (8.5-10.1); CREATININE 2.5 mg/dL (0.55-1.3); POTASSIUM 3.9 mmol/L (3.5-5.1)
--- NOTE | 2019-11-24 13:42 | CON.NEP ---
Consult Consult Specialty:: Nephrology Referred by:: Avinash Chamberlain NP Reason for Consultation:: TEJA/CKD - History of Present Illness Chief Complaint: Hip pain History of Present Illness: This is a 69 year old woman with history of multiple strokes, parkinsons's disease, CKD, GERD and atrial fibrillation on anticoagulation who presented from the [place] wit a mechanical fall and hip pain and found to have a acute hip fracture and abnormal renal function. Seen and examined at the bedside. She is awake but not able to provide history. She denies any pain or shortness of breath. s/p ORIF this admission for hip fracture. 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 Cardio/Vascular: Yes: CAD, HTN, Other (CABG) Renal/: Yes: Renal Inusuff ...: No Musculoskeletal: Yes: Chronic low back pain Endocrine: Yes: Diabetes Mellitus - Past Surgical History Past Surgical History: Yes: CABG - Alcohol/Substance Use Hx Alcohol Use: No - Smoking History Smoking history: Never smoked Have you smoked in the past 12 months: No - Social History Usual Living Arrangement: Alone ADL: Independent Home Medications - Allergies Allergies/Adverse Reactions: Allergies Allergy/AdvReac Type Severity Reaction Status Date / Time Penicillins Allergy Verified 11/21/19 16:16 Sulfa (Sulfonamide Allergy Verified 11/21/19 16:16 Antibiotics) zolpidem tartrate Allergy Verified 11/21/19 16:16 [From Ambien] artificial sweetner Allergy Severe Swelling Uncoded 11/21/19 16:16 Camacho beans Allergy Unknown Uncoded 11/21/19 16:16 - Home Medications Home Medications: Ambulatory Orders Apixaban [Eliquis -] 5 mg PO BID 11/21/19 Carbidopa/Levodopa [Carbidopa-Levodopa 10-100 Tab] 1 each PO TID 11/21/19 Cholecalciferol (Vitamin D3) [Vitamin D3 -] 125 mcg PO DAILY 11/21/19 Duloxetine HCl [Cymbalta -] 60 mg PO DAILY 11/21/19 Gabapentin 300 mg PO TID 11/21/19 Multivitamins [Tab-A-Vit -] 1 tab PO DAILY 11/21/19 [place]-3/Dha/Epa/Fish Oil [[place] 3 500 Softgel] 2 each PO DAILY 11/21/19 Pantoprazole Sodium [Protonix] 40 mg PO DAILY 11/21/19 Polyethylene Glycol 300 17 gm PO DAILY 11/21/19 Ranolazine [Ranexa] 1,000 mg PO DAILY 11/21/19 Ranolazine [Ranexa] 500 mg PO HS 11/21/19 Rosuvastatin [Crestor -] 40 mg PO DAILY 11/21/19 Sennosides [Senna] 8.6 mg PO DAILY 11/21/19 Family Medical History Family History: Unable to Obtain Review of Systems Unable to obtain ROS, reason: dementia Nephrology Consult - Height Height: 5 ft 8 in - Weight Weight: 71.395 kg - BMI Body Mass Index (BMI): 23.9 - Lab Results CBC,BMP: CBC, BMP 11/24/19 11:06 11/24/19 11:06 Anion Gap: Anion Gap Anion Gap 8 MMOL/L (8-16) 11/24/19 11:06 - Imaging Chest X-ray: Report Reviewed, Image Reviewed Ultrasound: Report Reviewed - Physical Examination Vital Signs: Vital Signs Temperature 97.5 F L 11/24/19 10:00 Pulse Rate 93 H 11/24/19 10:00 Respiratory Rate 18 11/24/19 10:00 Blood Pressure 125/62 11/24/19 10:00 O2 Sat by Pulse Oximetry (%) 92 L 11/24/19 10:00 Constitutional: Yes: No Distress, Anxious HENT: Yes: Atraumatic Neck: Yes: Supple Cardiovascular: Yes: Regular Rate and Rhythm Respiratory: Yes: Regular Gastrointestinal: Yes: Soft. No: Tenderness Renal/: No: Bladder Distention Extremities: No: Cyanosis Edema: No Assessment/Plan 69 year old woman with history of multiple strokes, parkinsons's disease, CKD, GERD and atrial fibrillation on anticoagulation who presented from the [place] wit a mechanical fall and hip pain and found to have a acute hip fracture and abnormal renal function. 1. Acute on chronic renal insuffiency 2. CKD 3. Hip fracture 4. Dementia 5. Anemia 6. Hyperchloremia 7. Renal cysts Renal function improving so far this admission indicating some degree of volume depletion. Unclear what her baseline renal function is, will attempt to obtain records from [place]. change saline to LR given hyperchloremia. Pain control w/o NSIADs Renal US showed no signs of obstruction Trend H/H, check iron studies for anemia. Ortho follow up Thank you will follow Magnus Awan DO
[2019-11-24] MEDS ORDERED: LACTATED RINGERS SOLUTION 1,000 ML/1,000 ML INFUS.BAG IV SCH (13:45)
[2019-11-24] MEDS ORDERED: PT OWN MED DRAWER 7, Y5N ONE ×2 (14:35→21:55)
[2019-11-24] MEDS: ROSUVASTATIN CA 10 MG TABLET (FP) PO SCH (21:57)
[2019-11-24] MEDS: RANOLAZINE E.R. 500 MG TABLET (FP) PO SCH (21:57)
[2019-11-25] MEDS: GABAPENTIN 300 MG CAPSULE PO SCH ×3 (06:22→21:09)
[2019-11-25] MEDS: INSULIN SLIDING SCALE (NOVOLOG) 1 VIAL SQ SCH ×3 (06:25→17:22)
[2019-11-25] MEDS: CARBIDOPA/LEVODOPA 10/100 TABLET (FP) PO SCH ×3 (06:26→21:09)
[2019-11-25] MEDS ORDERED: INSULIN (LEVEMIR) 100 UNITS/ML UNITS SQ ONE (06:44)
[2019-11-25 08:20] LABS: HEMATOCRIT 25.5 % (32.4-45.2); HEMOGLOBIN 8.3 GM/dL (10.7-15.3); MCHC 32.5 g/dl (32.0-36.0); MEAN CELL VOLUME 86.4 fl (80-96); MEAN PLT VOLUME 8.9 fl (7.5-11.1); PLATELET COUNT 171 K/MM3 (134-434); RBC 2.95 M/mm3 (3.60-5.2); RDW 18.7 % (11.6-15.6); WHITE BLOOD COUNT 5.7 K/mm3 (4.0-10.0)
[2019-11-25 08:49] LABS: BLOOD UREA NITROGEN 28.6 mg/dL (7-18); CALCIUM 9.5 mg/dL (8.5-10.1); CREATININE 2.2 mg/dL (0.55-1.3)
[2019-11-25] MEDS ORDERED: RANOLAZINE E.R. 500 MG TABLET (FP) ONE (09:31)
[2019-11-25] MEDS: IRON POLYSACCHARIDES 150 MG CAPSULE PO SCH (09:37)
[2019-11-25] MEDS: PANTOPRAZOLE 40 MG TABLET PO SCH (09:37)
[2019-11-25] MEDS: DULoxetine HCL 30 MG CAPSULE.DR PO SCH (09:37)
[2019-11-25] MEDS: APIXABAN 5 MG TABLET PO SCH ×2 (09:37→21:09)
[2019-11-25] MEDS: DOCUSATE SODIUM 100 MG CAPSULE (FP) PO PRN (09:37)
[2019-11-25] MEDS: POLYETHYLENE GLYCOL 3350 119 GM BTL PO SCH (09:38)
[2019-11-25] MEDS: RANOLAZINE E.R. 1,000 MG TABLET (FP) PO SCH (09:38)
[2019-11-25] MEDS: ACETAMINOPHEN 500 MG TABLET (FP) PO PRN ×2 (09:38→21:09)
--- NOTE | 2019-11-25 10:09 | PN ---
Progress Note (short form) - Note Progress Note: Anesthesia Post op/pain Pt seen and examined S:Alert and awake comfortable O: Vital Signs Temperature 97.4 F L 11/25/19 09:00 Pulse Rate 74 11/25/19 09:00 Respiratory Rate 20 11/25/19 09:00 Blood Pressure 127/59 L 11/25/19 09:00 O2 Sat by Pulse Oximetry (%) 96 11/25/19 09:00 CBC, BMP 11/25/19 07:15 11/25/19 07:15 A/P Current Active Problems TEJA (acute kidney injury) (Acute) Anemia (Acute) Fall (Acute) Fracture of femoral neck, right, closed (Acute) s/p right hip pinning Doing well post op Continue current care. Mateus Stroud MD
--- NOTE | 2019-11-25 12:28 | PN ---
Progress Note (short form) - Note Progress Note: ORTHOPEDIC SURGERY PROGRESS NOTE Department of Orthopedic Surgery SUBJECTIVE No acute events overnight. No complaints currently. Resting in bed. Arousable. Denies chest pain, shortness of breath, or calf pain. No nausea or vomiting. Pain controlled. PHYSICAL EXAMINATION General: Alert, oriented, cooperative and no distress. Lower Extremity: Margarito intact. No drainage or signs of infection. Compartments soft. Muscle mass equal and symmetric to contralateral side. No atrophy noted. No masses or effusions noted. No tenderness to palpation. Full passive and active ROM, free from pain. Motor/sensory exam unable to be performed due to poor compliance with exam. 2+ DP pulses; Cap refill brisk. DVT Exam: No evidence of DVT seen on physical exam; No cords or calf tenderness; No significant calf/ankle edema. Intake & Output 11/23/19 11/24/19 11/25/19 23:59 23:59 23:59 Intake Total 2513 30 996 Output Total 10 Balance 2503 30 996 Intake: IV 2213 996 LACTATED RINGERS SOLUTION 996 1,000 ml In 1,000 ml @ 83 mls/hr IV ASDIR DELICIA Rx #:[id number] Normal Saline - 1,000 ml 1513 @ 83 mls/hr IV ASDIR DELICIA Rx#:[id number] IVPB 50 Oral 250 30 Output: Estimated Blood Loss 10 Other: Voiding Method Incontinent Incontinent Incontinent # Unmeasured Voids External Catheter 1 Void 1 1 Bowel Movement No No # Bowel Movements 0 Weight 198 lb 157 lb 6.4 oz 159 lb 11.2 oz Height 5 ft 8 in Body Mass Index (BMI) 23.9 Weight Measurement [facility] Active Medications Generic Name Dose Route Start Last Admin Trade Name Freq PRN Reason Stop Dose Admin Acetaminophen 1,000 mg 11/23/19 14:42 11/25/19 09:38 Tylenol - PO 1,000 mg Q6H PRN Administration PAIN LEVEL 1-5 Apixaban 5 mg 11/25/19 10:00 11/25/19 09:37 Eliquis - PO 5 mg BID DELICIA Administration Carbidopa/Levodopa 1 each 11/23/19 22:00 11/25/19 06:26 Sinemet 10/100 - PO 1 each TID DELICIA Administration Docusate Sodium 100 mg 11/23/19 14:44 11/25/19 09:37 Colace - PO 100 mg BID PRN Administration CONSTIPATION Duloxetine HCl 60 mg 11/24/19 10:00 11/25/19 09:37 Cymbalta - PO 60 mg DAILY DELICIA Administration Gabapentin 300 mg 11/23/19 14:00 11/25/19 06:22 Neurontin - PO 300 mg TID DELICIA Administration Lactated Ringer's 1,000 ml in 1,000 mls @ 83 mls/hr 11/24/19 13:45 11/24/19 16:55 Lactated Ringers Solution IV 83 mls/hr ASDIR DELICIA Administration Insulin Aspart 1 vial 11/23/19 16:30 11/25/19 11:41 Novolog Vial Sliding Scale - SQ 4 units ACHS DELICIA Administration Protocol Morphine Sulfate 2 mg 11/23/19 14:45 11/24/19 12:38 Morphine Sulfate IVPUSH 2 mg Q4H PRN Administration PAIN LEVEL 6-10 Pantoprazole Sodium 40 mg 11/24/19 10:00 11/25/19 09:37 Protonix - PO 40 mg DAILY DELICIA Administration Polyethylene Glycol 17 gm 11/24/19 10:00 11/25/19 09:38 Miralax (For Daily Use) - PO 17 gm DAILY DELICIA Administration Polysaccharide Iron Complex 150 mg 11/24/19 10:00 11/25/19 09:37 Niferex-150 - PO 150 mg DAILY DELICIA Administration Ranolazine 1,000 mg 11/24/19 10:00 11/25/19 09:38 Ranexa - PO 1,000 mg DAILY DELICIA Administration Ranolazine 500 mg 11/23/19 22:00 11/24/19 21:57 Ranexa - PO 500 mg HS DELICIA Administration Rosuvastatin Calcium 10 mg 11/23/19 22:00 11/24/19 21:57 Crestor - PO 10 mg HS DELICIA Administration Vital Signs (last) Temp Pulse Resp BP Pulse Ox 97.4 F L 74 20 127/59 L 96 11/25/19 09:00 11/25/19 09:00 11/25/19 09:00 11/25/19 09:00 11/25/19 09:00 Laboratory (coagulation) PT with INR 15.30 SEC (9.7-13.0) H 11/23/19 12:37 Laboratory 11/25/19 07:15 11/25/19 07:15 IMAGING Radiographs of the right hip show intact hardware no change in fracture alignment. ASSESSMENT AND PLAN Kailee Ayers is a 69 year old female status post right hip CRPP. POD#2. Hemodynamically stable. - Dressing changed - Pain control: Transition to oral pain medications, minimize narcotic use - DVT prophylaxis - Ice/Elevation - Elevate HOB, encourage oral intake - Appreciate medical management - Nutrition optimization - Decubitus precautions heel/sacrum - PT/OT; TTWB RLE
--- NOTE | 2019-11-25 14:12 | PN ---
Progress Note, Physician Chief Complaint: Fall Right femoral neck fracture S/P Percutaneous Fixation of Right Femoral Neck Fracture History of Present Illness: NAD, sleeping S/P Percutaneous Fixation of Right Femoral Neck Fracture - Current Medication List Current Medications: Active Medications Acetaminophen (Tylenol -) 1,000 mg PO Q6H PRN PRN Reason: PAIN LEVEL 1-5 Last Admin: 11/25/19 09:38 Dose: 1,000 mg Documented by: Apixaban (Eliquis -) 5 mg PO BID [facility] Last Admin: 11/25/19 09:37 Dose: 5 mg Documented by: Carbidopa/Levodopa (Sinemet 10/100 -) 1 each PO TID [facility] Last Admin: 11/25/19 06:26 Dose: 1 each Documented by: Docusate Sodium (Colace -) 100 mg PO BID PRN PRN Reason: CONSTIPATION Last Admin: 11/25/19 09:37 Dose: 100 mg Documented by: Duloxetine HCl (Cymbalta -) 60 mg PO DAILY [facility] Last Admin: 11/25/19 09:37 Dose: 60 mg Documented by: Gabapentin (Neurontin -) 300 mg PO TID [facility] Last Admin: 11/25/19 06:22 Dose: 300 mg Documented by: Lactated Ringer's (Lactated Ringers Solution) 1,000 ml in 1,000 mls @ 83 mls/hr IV ASDIR [facility] Last Admin: 11/24/19 16:55 Dose: 83 mls/hr Documented by: Insulin Aspart (Novolog Vial Sliding Scale -) 1 vial SQ [facility]; Protocol Last Admin: 11/25/19 11:41 Dose: 4 units Documented by: Morphine Sulfate (Morphine Sulfate) 2 mg IVPUSH Q4H PRN PRN Reason: PAIN LEVEL 6-10 Last Admin: 11/24/19 12:38 Dose: 2 mg Documented by: Pantoprazole Sodium (Protonix -) 40 mg PO DAILY [facility] Last Admin: 11/25/19 09:37 Dose: 40 mg Documented by: Polyethylene Glycol (Miralax (For Daily Use) -) 17 gm PO DAILY [facility] Last Admin: 11/25/19 09:38 Dose: 17 gm Documented by: Polysaccharide Iron Complex (Niferex-150 -) 150 mg PO DAILY [facility] Last Admin: 11/25/19 09:37 Dose: 150 mg Documented by: Ranolazine (Ranexa -) 1,000 mg PO DAILY [facility] Last Admin: 11/25/19 09:38 Dose: 1,000 mg Documented by: Ranolazine (Ranexa -) 500 mg PO [facility] Last Admin: 11/24/19 21:57 Dose: 500 mg Documented by: Rosuvastatin Calcium (Crestor -) 10 mg PO [facility] Last Admin: 11/24/19 21:57 Dose: 10 mg Documented by: - Objective Vital Signs: Vital Signs Temperature 97.5 F L 11/25/19 14:00 Pulse Rate 74 11/25/19 14:00 Respiratory Rate 11/25/19 14:00 Blood Pressure 110/49 L 11/25/19 14:00 O2 Sat by Pulse Oximetry (%) 95 11/25/19 14:00 Constitutional: Yes: Well Nourished, No Distress, Calm Cardiovascular: Yes: Regular Rate and Rhythm Respiratory: Yes: Regular, Diminished Gastrointestinal: Yes: Normal Bowel Sounds, Soft Genitourinary: Yes: Incontinence Musculoskeletal: Yes: Muscle Weakness Extremities: Yes: WNL Edema: No Peripheral Pulses WNL: Yes Neurological: Yes: Alert, Lethargy Labs: CBC, BMP 11/25/19 07:15 11/25/19 07:15 INR, PTT INR 1.29 (0.83-1.09) H 11/23/19 12:37 Problem List - Problems (1) TEJA (acute kidney injury) Assessment/Plan: -Cr improving -Nephrology consult -U/S renal: BL renal cyst -Continue IVF -Monitor trend Problems reviewed: Yes Code(s): N17.9 - ACUTE KIDNEY FAILURE, UNSPECIFIED (2) Anemia Assessment/Plan: -Trending down -Iron % low -Injectafer once -Iron polysaccharide 150 mg po daily -B 12, thyroid profile normal -Stool OB pending Problems reviewed: Yes Code(s): D64.9 - ANEMIA, UNSPECIFIED (3) Fall Assessment/Plan: -Safety precautions -Physical therapy -SNF Problems reviewed: Yes Code(s): W19.XXXA - UNSPECIFIED FALL, INITIAL ENCOUNTER Qualifiers: Encounter type: initial encounter Qualified Code(s): W19.XXXA - Unspecified fall, initial encounter (4) Fracture of femoral neck, right, closed Assessment/Plan: -Seen by orthopedic surgery -S/P right femoral neck fixation -Physical therapy -Pain management: Acetaminophen 1g Q6H PRN for pain Problems reviewed: Yes Code(s): S72.001A - FRACTURE OF UNSP PART OF NECK OF RIGHT FEMUR, INIT Qualifiers: Encounter type: initial encounter Qualified Code(s): S72.001A - Fracture of unspecified part of neck of right femur, initial encounter for closed fracture (5) Altered mental state Assessment/Plan: -At baseline Problems reviewed: Yes Code(s): R41.82 - ALTERED MENTAL STATUS, UNSPECIFIED (6) Diabetes mellitus Assessment/Plan: -A1c at 6.3 -D/C BGM -D/C ISS Problems reviewed: Yes Code(s): E11.9 - TYPE 2 DIABETES MELLITUS WITHOUT COMPLICATIONS Assessment/Plan See problem list
[2019-11-25] MEDS ORDERED: PT OWN MED DRAWER 7, Y5N ONE ×2 (14:26→21:00)
--- NOTE | 2019-11-25 16:12 | PN ---
Progress Note, Physician History of Present Illness: Seen and examined at the bedside awake but confused on IVF tolerating meals making urine - Current Medication List Current Medications: Active Medications Acetaminophen (Tylenol -) 1,000 mg PO Q6H PRN PRN Reason: PAIN LEVEL 1-5 Last Admin: 11/25/19 09:38 Dose: 1,000 mg Documented by: Apixaban (Eliquis -) 5 mg PO BID [facility] Last Admin: 11/25/19 09:37 Dose: 5 mg Documented by: Carbidopa/Levodopa (Sinemet 10/100 -) 1 each PO TID [facility] Last Admin: 11/25/19 14:27 Dose: 1 each Documented by: Docusate Sodium (Colace -) 100 mg PO BID PRN PRN Reason: CONSTIPATION Last Admin: 11/25/19 09:37 Dose: 100 mg Documented by: Duloxetine HCl (Cymbalta -) 60 mg PO DAILY [facility] Last Admin: 11/25/19 09:37 Dose: 60 mg Documented by: Gabapentin (Neurontin -) 300 mg PO TID [facility] Last Admin: 11/25/19 14:27 Dose: 300 mg Documented by: Lactated Ringer's (Lactated Ringers Solution) 1,000 ml in 1,000 mls @ 83 mls/hr IV ASDIR [facility] Last Admin: 11/24/19 16:55 Dose: 83 mls/hr Documented by: Insulin Aspart (Novolog Vial Sliding Scale -) 1 vial SQ ACHS [facility]; Protocol Last Admin: 11/25/19 11:41 Dose: 4 units Documented by: Morphine Sulfate (Morphine Sulfate) 2 mg IVPUSH Q4H PRN PRN Reason: PAIN LEVEL 6-10 Last Admin: 11/24/19 12:38 Dose: 2 mg Documented by: Pantoprazole Sodium (Protonix -) 40 mg PO DAILY [facility] Last Admin: 11/25/19 09:37 Dose: 40 mg Documented by: Polyethylene Glycol (Miralax (For Daily Use) -) 17 gm PO DAILY [facility] Last Admin: 11/25/19 09:38 Dose: 17 gm Documented by: Polysaccharide Iron Complex (Niferex-150 -) 150 mg PO DAILY [facility] Last Admin: 11/25/19 09:37 Dose: 150 mg Documented by: Ranolazine (Ranexa -) 1,000 mg PO DAILY [facility] Last Admin: 11/25/19 09:38 Dose: 1,000 mg Documented by: Ranolazine (Ranexa -) 500 mg PO [facility] Last Admin: 11/24/19 21:57 Dose: 500 mg Documented by: Rosuvastatin Calcium (Crestor -) 10 mg PO HS [facility] Last Admin: 11/24/19 21:57 Dose: 10 mg Documented by: - Objective Vital Signs: Vital Signs Temperature 97.5 F L 11/25/19 14:00 Pulse Rate 74 11/25/19 14:00 Respiratory Rate 11/25/19 14:00 Blood Pressure 110/49 L 11/25/19 14:00 O2 Sat by Pulse Oximetry (%) 95 11/25/19 14:00 Constitutional: Yes: No Distress Neck: Yes: Supple Cardiovascular: Yes: Regular Rate and Rhythm Respiratory: Yes: Regular Extremities: No: Cyanosis Edema: No Labs: CBC, BMP 11/25/19 07:15 11/25/19 07:15 INR, PTT INR 1.29 (0.83-1.09) H 11/23/19 12:37 Assessment/Plan 69 year old woman with history of multiple strokes, parkinsons's disease, CKD, GERD and atrial fibrillation on anticoagulation who presented from the [place] wit a mechanical fall and hip pain and found to have a acute hip fracture and abnormal renal function. 1. Acute on chronic renal insuffiency 2. CKD 3. Hip fracture 4. Dementia 5. Anemia 6. Hyperchloremia 7. Renal cysts Renal function improved and appears plateaued d/c IVF today Pain control w/o NSIADs Renal US showed no signs of obstruction Trend H/H, check iron studies for anemia. Ortho follow up Magnus Awan DO
[2019-11-25] MEDS ORDERED: INSULIN (NOVOLOG) ASPART 100 UNITS/ML 10ML VIAL ONE (17:29)
[2019-11-25] MEDS: ROSUVASTATIN CA 10 MG TABLET (FP) PO SCH (21:09)
[2019-11-25] MEDS: RANOLAZINE E.R. 500 MG TABLET (FP) PO SCH (21:09)
[2019-11-26] MEDS: CARBIDOPA/LEVODOPA 10/100 TABLET (FP) PO SCH ×3 (05:45→21:27)
[2019-11-26] MEDS: GABAPENTIN 300 MG CAPSULE PO SCH ×3 (05:46→21:27)
[2019-11-26] MEDS ORDERED: RANOLAZINE E.R. 500 MG TABLET (FP) ONE (09:07)
[2019-11-26] MEDS: PANTOPRAZOLE 40 MG TABLET PO SCH (09:09)
[2019-11-26] MEDS: IRON POLYSACCHARIDES 150 MG CAPSULE PO SCH (09:10)
[2019-11-26] MEDS: DULoxetine HCL 30 MG CAPSULE.DR PO SCH (09:10)
[2019-11-26] MEDS: APIXABAN 5 MG TABLET PO SCH ×2 (09:10→21:27)
[2019-11-26] MEDS: POLYETHYLENE GLYCOL 3350 119 GM BTL PO SCH (09:10)
[2019-11-26] MEDS: RANOLAZINE E.R. 1,000 MG TABLET (FP) PO SCH (09:11)
--- NOTE | 2019-11-26 09:26 | PN ---
Progress Note, Physician - Current Medication List Current Medications: Active Medications Acetaminophen (Tylenol -) 1,000 mg PO Q6H PRN PRN Reason: PAIN LEVEL 1-5 Last Admin: 11/25/19 21:09 Dose: 1,000 mg Documented by: Apixaban (Eliquis -) 5 mg PO BID [facility] Last Admin: 11/26/19 09:10 Dose: 5 mg Documented by: Carbidopa/Levodopa (Sinemet 10/100 -) 1 each PO TID [facility] Last Admin: 11/26/19 05:45 Dose: 1 each Documented by: Docusate Sodium (Colace -) 100 mg PO BID PRN PRN Reason: CONSTIPATION Last Admin: 11/25/19 09:37 Dose: 100 mg Documented by: Duloxetine HCl (Cymbalta -) 60 mg PO DAILY [facility] Last Admin: 11/26/19 09:10 Dose: 60 mg Documented by: Gabapentin (Neurontin -) 300 mg PO TID [facility] Last Admin: 11/26/19 05:46 Dose: 300 mg Documented by: Pantoprazole Sodium (Protonix -) 40 mg PO DAILY [facility] Last Admin: 11/26/19 09:09 Dose: 40 mg Documented by: Polyethylene Glycol (Miralax (For Daily Use) -) 17 gm PO DAILY [facility] Last Admin: 11/26/19 09:10 Dose: 17 gm Documented by: Polysaccharide Iron Complex (Niferex-150 -) 150 mg PO DAILY [facility] Last Admin: 11/26/19 09:10 Dose: 150 mg Documented by: Ranolazine (Ranexa -) 1,000 mg PO DAILY [facility] Last Admin: 11/26/19 09:11 Dose: 1,000 mg Documented by: Ranolazine (Ranexa -) 500 mg PO [facility] Last Admin: 11/25/19 21:09 Dose: 500 mg Documented by: Rosuvastatin Calcium (Crestor -) 10 mg PO [facility] Last Admin: 11/25/19 21:09 Dose: 10 mg Documented by: - Objective Vital Signs: Vital Signs Temperature 98.4 F 11/26/19 06:00 Pulse Rate 84 11/26/19 06:00 Respiratory Rate 20 11/26/19 06:00 Blood Pressure 128/76 11/26/19 06:00 O2 Sat by Pulse Oximetry (%) 96 11/25/19 21:00 Cardiovascular: Yes: S1, S2 Respiratory: Yes: Regular, CTA Bilaterally Gastrointestinal: Yes: Normal Bowel Sounds, Soft Neurological: Yes: Lethargy Labs: CBC, BMP 11/25/19 07:15 11/25/19 07:15 INR, PTT INR 1.29 (0.83-1.09) H 11/23/19 12:37 Assessment/Plan - Problems (1) TEJA (acute kidney injury) Assessment/Plan: -Cr improving -Nephrology consult -U/S renal: BL renal cyst -Continue IVF -Monitor trend Problems reviewed: Yes Code(s): N17.9 - ACUTE KIDNEY FAILURE, UNSPECIFIED (2) Anemia Assessment/Plan: -Trending down -Iron % low -Injectafer once -Iron polysaccharide 150 mg po daily -B 12, thyroid profile normal -Stool OB pending Problems reviewed: Yes Code(s): D64.9 - ANEMIA, UNSPECIFIED (3) Fall Assessment/Plan: -Safety precautions -Physical therapy -SNF Problems reviewed: Yes Code(s): W19.XXXA - UNSPECIFIED FALL, INITIAL ENCOUNTER Qualifiers: Encounter type: initial encounter Qualified Code(s): W19.XXXA - Unspecified fall, initial encounter (4) Fracture of femoral neck, right, closed Assessment/Plan: -Seen by orthopedic surgery -S/P right femoral neck fixation -Physical therapy -Pain management: Acetaminophen 1g Q6H PRN for pain Problems reviewed: Yes Code(s): S72.001A - FRACTURE OF UNSP PART OF NECK OF RIGHT FEMUR, INIT Qualifiers: Encounter type: initial encounter Qualified Code(s): S72.001A - Fracture of unspecified part of neck of right femur, initial encounter for closed fracture (5) Altered mental state Assessment/Plan: -Lethargic today -Stat Labs Problems reviewed: Yes Code(s): R41.82 - ALTERED MENTAL STATUS, UNSPECIFIED (6) Diabetes mellitus Assessment/Plan: -A1c at 6.3 -D/C BGM--do stat bgm -D/C ISS Problems reviewed: Yes Code(s): E11.9 - TYPE 2 DIABETES MELLITUS WITHOUT COMPLICATIONS
[2019-11-26 10:22] LABS: ARTERIAL BLD GAS O2 SATURATION 92.6 mmHg (95-98); ARTERIAL BLOOD GAS BASE EXCESS -0.4 mmol/L (-2-2); ARTERIAL BLOOD GAS PO2 64.2 mmHg (80-100); ARTERIAL BLOOD GAS pH 7.403 (7.350-7.450)
[2019-11-26 10:24] LABS: ALLENS TEST POSITIVE
[2019-11-26 10:25] LABS: VENT MODE NO; VENT RATE NO
--- NOTE | 2019-11-26 10:39 | RAPID ---
Physical Examination Vital Signs: Vital Signs Temperature 97.4 F L 11/26/19 09:32 Pulse Rate 59 L 11/26/19 09:32 Respiratory Rate 18 11/26/19 09:32 Blood Pressure 116/57 11/26/19 09:32 O2 Sat by Pulse Oximetry (%) 92 L 11/26/19 09:32 entered into table Findings/Remarks: indy barakat called at 10:35 - for concern of a fixed gaze. At baseline patient is talkative and able to communicate. Constitutional: Yes: Other (patient was unresponsive with eyes wide open) Cardiovascular: Yes: Regular Rate and Rhythm Respiratory: Yes: Regular Musculoskeletal: Yes: WNL Extremities: Yes: WNL Edema: No Peripheral Pulses WNL: Yes Integumentary: Yes: WNL Neurological: Yes: Facial Droop, Pre-Existing Deficit, Unresponsive Labs: CBC, BMP 11/25/19 07:15 11/25/19 07:15 Rapid Response - Rapid Response Assessment: Patient is a 69F w a h/o multiple CVAs, wheelchair bound, cogwheel movements secondary to cva in the past. Patient has been found to have a fixed gaze upon evaluation by her nurse. Patient pale in appearance, absent blink reflex, mild twitching in UE and LE. Indy barakat was called, attending and residents had ordered STAT CT of head, CTA of brain, and CT of neck. Dr. Lloyd was notified for course of action and will follow up with the patient. Patient was given Ativan for suspicion of seizure vs CVA. Patient was then rushed to imaging. Suspected CVA MD Exam Time (Indy Amezcua Time): 15:00 CT Stroke ordered: Yes Stat "Indy Amezcua" Consult to Neurology called & responded: Yes Symptom Discovery (Date): 11/26/19 Symptom Discovery (Time): 11:35 - NIH Stroke Scale/Score Level of consciousness: Coma Ask patient the month and their age: Both incorrect Ask patient to open & close eyes; make fist and let go: Both incorrect Best gaze (horizontal eye movement): Forced deviation Visual field testing: Bilateral hemianopia (blind including cortical blindness) Facial paresis (Show teeth/raise eyebrows/close eyes tight): Complete paralysis of one or both sides (Upper and lower face) Motor Function: Left Arm: No movement Motor Function: Right Arm: No movement Motor Function: Left Leg: No movement Motor Function: Right Leg: No movement Limb Ataxia: Present in two limbs Sensory(Use pinprick test arms,legs,trunk,face/side to side): Severe to total sensory loss Best language (Describe picture, name items, read sentences): Mute Dysarthria (read several words): Near unintelligible or unable to speak Extinction and Inattention: Inattention or extinction bilaterally to one of the sensory modalities (patient stairing off into space without blink response.) NIH Stroke Scale Score: 41
[2019-11-26] MEDS ORDERED: LORazepam 2 MG/ML SDV VIAL ONE (10:40)
[2019-11-26] MEDS ORDERED: LORazepam 2 MG/ML SDV VIAL IVPUSH ONE (10:40)
[2019-11-26 10:45] LABS: BASO % 0.6 % (0-2.0); EOS % 3.3 % (0-4.5); HEMOGLOBIN 8.4 GM/dL (10.7-15.3); LYMPH % 9.4 % (8-40); MCH 28.3 pg (25.7-33.7); MCHC 32.2 g/dl (32.0-36.0); MEAN PLT VOLUME 9.1 fl (7.5-11.1); MONO % 6.9 % (3.8-10.2); NEUT % 79.8 % (42.8-82.8); PLATELET COUNT 178 K/MM3 (134-434); RBC 2.96 M/mm3 (3.60-5.2); WHITE BLOOD COUNT 6.8 K/mm3 (4.0-10.0)
[2019-11-26] MEDS ORDERED: SODIUM CHLORIDE 0.9% 500 ML INFUS.BAG IV ONE (10:50)
[2019-11-26] MEDS ORDERED: SODIUM CHLORIDE IV SCH (11:00)
[2019-11-26] MEDS ORDERED: LORazepam 2 MG/ML SDV VIAL IM ONE (11:05)
[2019-11-26 11:12] LABS: ALBUMIN 2.7 g/dl (3.4-5.0); ALK PHOS 71 U/L (45-117); ANION GAP 5 MMOL/L (8-16); BILIRUBIN,TOTAL 0.4 mg/dL (0.2-1); BLOOD UREA NITROGEN 36.4 mg/dL (7-18); CHLORIDE 108 mmol/L (98-107); CO2 28 mmol/L (21-32); CREATININE 2.2 mg/dL (0.55-1.3); POTASSIUM 4.8 mmol/L (3.5-5.1); SGOT/AST 14 U/L (15-37); SODIUM 141 mmol/L (136-145); TOT PROT 5.5 g/dl (6.4-8.2)
[2019-11-26 11:13] LABS: GLUCOSE,RANDOM 199 mg/dL (74-106); SGPT/ALT < 6 U/L (13-61)
[2019-11-26] MEDS: SODIUM CHLORIDE 500 ML IV SCH (12:56)
--- NOTE | 2019-11-26 13:08 | CON.NEURO ---
Consult Consult Specialty:: Daina Referred by:: PCP Reason for Consultation:: Lashae Nazario - History of Present Illness Chief Complaint: ams History of Present Illness: this is a pleasant 69-year-old right-handed female patient with multiple medical problems including history of [place], chronic low back pain, osteo arthritis, spinal stenosis, history of previous CVA 7, history of cardiac arrhythmia with atrial fibrillation currently on anticoagulation resident of the half-way who presented actually 4 days ago to the medical floor with right hip pain. Apparently today the patient at the [facility] 1020 2 in the morning she was found with acute altered mental status being unresponsive code yuval was initiated patient was rushed for CAT scan of the head with CT angiogramneurology was called at 12:52 PM. I immediately looked at the CAT scan of the head which revealed evidence of a chronicischemic changes with no evidenceof acute pathology or bleed CT angiogram revealed evidence of diffuse atherosclerotic d isease with no evidence of blood clot in both middle cerebral artery. Patient was transferred to the telemetry for further treatment and management Noted that the patient is DNR. During the admission patient was evaluated by multiple specialists including nephrology and orthopedic. During the course of the past 2-1/2 hours patient has been slightly getting better with being more responsive no report of any seizure activity. 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 Cardio/Vascular: Yes: CAD, HTN, Other (CABG) Renal/: Yes: Renal Inusuff ...: No Musculoskeletal: Yes: Chronic low back pain Endocrine: Yes: Diabetes Mellitus - Past Surgical History Past Surgical History: Yes: CABG - Alcohol/Substance Use Hx Alcohol Use: No - Smoking History Smoking history: Never smoked Have you smoked in the past 12 months: No - Social History Usual Living Arrangement: Alone ADL: Independent Home Medications - Allergies Allergies/Adverse Reactions: Allergies Allergy/AdvReac Type Severity Reaction Status Date / Time Penicillins Allergy Verified 11/21/19 16:16 Sulfa (Sulfonamide Allergy Verified 11/21/19 16:16 Antibiotics) zolpidem tartrate Allergy Verified 11/21/19 16:16 [From Ambien] artificial sweetner Allergy Severe Swelling Uncoded 11/21/19 16:16 Camacho beans Allergy Unknown Uncoded 11/21/19 16:16 - Home Medications Home Medications: Ambulatory Orders Apixaban [Eliquis -] 5 mg PO BID 11/21/19 Carbidopa/Levodopa [Carbidopa-Levodopa 10-100 Tab] 1 each PO TID 11/21/19 Cholecalciferol (Vitamin D3) [Vitamin D3 -] 125 mcg PO DAILY 11/21/19 Duloxetine HCl [Cymbalta -] 60 mg PO DAILY 11/21/19 Gabapentin 300 mg PO TID 11/21/19 Multivitamins [Tab-A-Vit -] 1 tab PO DAILY 11/21/19 [place]-3/Dha/Epa/Fish Oil [[place] 3 500 Softgel] 2 each PO DAILY 11/21/19 Pantoprazole Sodium [Protonix] 40 mg PO DAILY 11/21/19 Polyethylene Glycol 300 17 gm PO DAILY 11/21/19 Ranolazine [Ranexa] 1,000 mg PO DAILY 11/21/19 Ranolazine [Ranexa] 500 mg PO HS 11/21/19 Rosuvastatin [Crestor -] 40 mg PO DAILY 11/21/19 Sennosides [Senna] 8.6 mg PO DAILY 11/21/19 Family Medical History Family History: Unable to Obtain Review of Systems Unable to obtain ROS, reason: ??? Physical Exam-Neuro Vital Signs: Vital Signs Temperature 96.2 F L 11/26/19 11:30 Pulse Rate 62 11/26/19 11:30 Respiratory Rate 18 11/26/19 11:30 Blood Pressure 136/60 11/26/19 11:30 O2 Sat by Pulse Oximetry (%) 95 11/26/19 11:30 Labs: CBC, BMP 11/26/19 10:02 11/26/19 10:02 INR, PTT INR 1.29 (0.83-1.09) H 11/23/19 12:37 - Neuro Exam Level Of Consciousness: Yes: Stuporous Eyes: Yes: PERRLA Speech: Garbled Dominant Hand: Right Cranial Nerves II-XII Intact: No Gag: Present DTR's: 1+ Left Bicep, 1+ Right Bicep, 1+ Left Brachioradialis, 1+ Right Brachioradialis Response to light touch: Abnormal Response to pain prick: Abnormal Movement Disorders: Involuntary Movements, Tremors Motor Strength: 2/5: Left Arm, Right Arm NIH Stroke Scale - Last Known Well Date/Time & Onset Date Last Known Well: 11/26/19 Time Last Known Well: 10:00 - Initial Evaluation Level of consciousness: Alert Ask patient the month and their age: Answers one correctly Ask patient to open & close eyes; make fist and let go: Obeys one correctly Best gaze (horizontal eye movement): Partial gaze palsy Visual field testing: No visual field loss Facial paresis (Show teeth/raise eyebrows/close eyes tight): Normal symmetrical movement Motor Function: Left Arm: Drift Motor Function: Right Arm: Normal (extends arm 90 (or 45) degrees for 10 seconds without drift Motor Function: Left Leg: Drift Motor Function: Right Leg: Normal (extends leg 30 degrees for 5 seconds without drift) Limb Ataxia: No ataxia Sensory(Use pinprick test arms,legs,trunk,face/side to side): Mild to moderate decrease in sensation Best language (Describe picture, name items, read sentences): Mild to moderate aphasia Dysarthria (read several words): Mild to moderate slurring of words Extinction and Inattention: Inattention or extinction bilaterally to one of the sensory modalities - Total Score NIH Stroke Scale Score: 9 Imaging - Results Cat Scan: Image Reviewed Problem List - Problems (1) Altered mental state Code(s): R41.82 - ALTERED MENTAL STATUS, UNSPECIFIED (2) Encephalitis Code(s): G04.90 - ENCEPHALITIS AND ENCEPHALOMYELITIS, UNSPECIFIED (3) Stroke Code(s): I63.9 - CEREBRAL INFARCTION, UNSPECIFIED Assessment/Plan It's very difficult to assess the patient for an acute stroke event giving the neurological exam at 1 PM. Patient is coming back with what looks like postictal phase questionable seizure activity. Patient with a complicated neurological history with multiple strokes in the past with questionable baseline complicated with a history of Parkinson's disease. 1. Patient is not a candidate for thrombolysisgiven the fact mild improvement in the neurological assessment. 2. Patient is not a candidate to be transferred to a tertiary stroke center didn't the nonspecific abnormalities on the CT angiogram. 3. Continue the anticoagulation the same with no risk on the current CAT scan of the head. 4. MRI of the brain with no contrast. 5. EEG. 6. Neuro checks every 1 hour. 7. SCDs. 8. Physical therapy. Thank you very much for allowing me to be part of this patient's neurological care. Total clinical time spent on the patient assessment speaking to the staff and reviewing the radiological images of 45 minutes. Wendy Ortiz M.D. [facility] [phone].
--- NOTE | 2019-11-26 13:33 | PN ---
Progress Note (short form) - Note Progress Note: PULMONARY CONSULTATION DICTATED 11/26/19 IMP ALTERED MENAL STATUS ? CVA H/O MULTIPLE CVAs ? SEIZURES S/P R HIP FX SECONDARY TO MECHANICAL FALL HYPOXEMIA ? CHF,?ASPIRATION AFIB PARKINSONS GERD ACUTE ON CHRONIC KIDNEY DISEASE PLAN O2 TO MAINTAIN SAT 9O% OR GREATER MONITOR LYTES,RENAL FUNCTION N Problem List - Problems (1) Hypoxemia Code(s): R09.02 - HYPOXEMIA (2) TEJA (acute kidney injury) Code(s): N17.9 - ACUTE KIDNEY FAILURE, UNSPECIFIED (3) Anemia Code(s): D64.9 - ANEMIA, UNSPECIFIED (4) Fall Code(s): W19.XXXA - UNSPECIFIED FALL, INITIAL ENCOUNTER Qualifiers: Encounter type: initial encounter Qualified Code(s): W19.XXXA - Unspecified fall, initial encounter (5) Stroke Code(s): I63.9 - CEREBRAL INFARCTION, UNSPECIFIED (6) Toxic metabolic encephalopathy Code(s): FIY2377 - (7) Hip fx Code(s): S72.009A - FRACTURE OF UNSP PART OF NECK OF UNSP FEMUR, INIT (8) Altered mental state Code(s): R41.82 - ALTERED MENTAL STATUS, UNSPECIFIED
--- NOTE | 2019-11-26 13:49 | CON.CARD ---
Consult Consult Specialty:: Cardiology Referred by:: Dr. Lloyd Reason for Consultation:: CVA - History of Present Illness Chief Complaint: AMS History of Present Illness: 69 year old woman pmh multiple CVAs with residual deficits, parkinsons, CKD, h/o Afib on [place] resident admitted with R hip fracture after a fall s/p surg ical fixation found today with AMS, constricted pupils, minimally responsive, with concern for CVA. CT head showed no acute stroke or bleed. pt seen and examined today. pts eyes are open, but pt is minimally responsive. pupils constricted. 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 Cardio/Vascular: Yes: CAD, HTN, Other (CABG) Renal/: Yes: Renal Inusuff ...: No Musculoskeletal: Yes: Chronic low back pain Endocrine: Yes: Diabetes Mellitus - Past Surgical History Past Surgical History: Yes: CABG - Alcohol/Substance Use Hx Alcohol Use: No - Smoking History Smoking history: Never smoked Have you smoked in the past 12 months: No - Social History Usual Living Arrangement: Alone ADL: Independent Home Medications - Allergies Allergies/Adverse Reactions: Allergies Allergy/AdvReac Type Severity Reaction Status Date / Time Penicillins Allergy Verified 11/21/19 16:16 Sulfa (Sulfonamide Allergy Verified 11/21/19 16:16 Antibiotics) zolpidem tartrate Allergy Verified 11/21/19 16:16 [From Ambien] artificial sweetner Allergy Severe Swelling Uncoded 11/21/19 16:16 Camacho beans Allergy Unknown Uncoded 11/21/19 16:16 - Home Medications Home Medications: Ambulatory Orders Apixaban [Eliquis -] 5 mg PO BID 11/21/19 Carbidopa/Levodopa [Carbidopa-Levodopa 10-100 Tab] 1 each PO TID 11/21/19 Cholecalciferol (Vitamin D3) [Vitamin D3 -] 125 mcg PO DAILY 11/21/19 Duloxetine HCl [Cymbalta -] 60 mg PO DAILY 11/21/19 Gabapentin 300 mg PO TID 11/21/19 Multivitamins [Tab-A-Vit -] 1 tab PO DAILY 11/21/19 [place]-3/Dha/Epa/Fish Oil [[place] 3 500 Softgel] 2 each PO DAILY 11/21/19 Pantoprazole Sodium [Protonix] 40 mg PO DAILY 11/21/19 Polyethylene Glycol 300 17 gm PO DAILY 11/21/19 Ranolazine [Ranexa] 1,000 mg PO DAILY 11/21/19 Ranolazine [Ranexa] 500 mg PO HS 11/21/19 Rosuvastatin [Crestor -] 40 mg PO DAILY 11/21/19 Sennosides [Senna] 8.6 mg PO DAILY 11/21/19 Family Medical History Family History: Unable to Obtain Review of Systems - Review of Systems Constitutional: reports: Lethargy, Weakness Eyes: denies: No Symptoms, Blind Spots, Blurred Vision, Double Vision, Eye Pain, Floaters, Photophobia, Recent Change in Vision, Other HENT: denies: No Symptoms, Difficult Swallowing, Ear Discharge, Ear Pain, Epistaxis, Gingival Bleeding, Hearing Loss, Mouth Swelling, Nasal Congestion, Ocular Prosthesis, Throat Pain, Toothache, Ringing in Ears, Other Neck: denies: No Symptoms, Decreased ROM, Lumps, Pain on Movement, Stiffness, Swollen Glands, Tenderness, Other Cardiovascular: denies: No Symptoms, Chest Pain, Edema, Palpitations, Shortness of Breath, Other Respiratory: denies: No Symptoms, Cough, Exercise Intolerance, Hemoptysis, Orthopnea, PND, Snoring, SOB, SOB on Exertion, Wheezing, Other Gastrointestinal: reports: No Symptoms. denies: Abdominal Pain, Bloating, Constipation, Diarrhea, Dysphagia, Indigestion, Melena, Nausea, Rectal Bleeding, Vomiting, Vomiting Blood, Other Genitourinary: denies: No Symptoms, Burning, Discharge, Dysuria, Flank Pain, Frequency, Hematuria, Incontinence, Lesions, Menses, Pain, Testicular Mass, Testicular Pain, Testicular Swelling, Urgency, Vaginal Bleeding, Other Musculoskeletal: reports: Decreased ROM, Joint Pain, Muscle Weakness Integumentary: denies: No Symptoms, Blister, Bruising, Change in Color, Eczema, Erythema, Incision, Lesions, Lump, Pallor, Pruritis, Rash, Wound, Other Neurological: denies: No Symptoms, Change in LOC, Change in Speech, Confusion, Dizziness, Headache, Incoordination, Numbness, Parasthesia, Pre-Existing Deficit, Seizure, Syncope, Tremors, Unsteady Gait, Weakness, Other Endocrine: denies: No Symptoms, Excessive Sweating, Flushing, Increased Hunger, Increased Thirst, Intolerance to Cold, Intolerance to Heat, Unexplained Weight Gain, Unexplained Weight Loss, Other Hematology/Lymphatic: denies: No Symptoms, Easily Bruised, Excessive Bleeding, Swollen Glands, Other Psychiatric: denies: No Symptoms, Altered Sleep Pattern, Anxiety, Depression, Hallucinations, Panic, Paranoia, Suicidal, Other - Risk Factors Known Risk Factors: Yes: Physical Inactivity, Prior IL /Emb Stroke Vital Signs: Vital Signs Temperature 96.2 F L 11/26/19 11:30 Pulse Rate 62 11/26/19 11:30 Respiratory Rate 18 11/26/19 11:30 Blood Pressure 136/60 11/26/19 11:30 O2 Sat by Pulse Oximetry (%) 95 11/26/19 11:30 Constitutional: Yes: No Distress, Other Eyes: Yes: Conjunctiva Clear, Other (pupils constricted) HENT: Yes: Atraumatic, Normocephalic Neck: Yes: Supple, Trachea Midline Respiratory: Yes: Regular, CTA Bilaterally. No: Rales, Rhonchi, SOB, Wheezes Gastrointestinal: Yes: Normal Bowel Sounds, Soft Cardiovascular: Yes: Regular Rate and Rhythm. No: Bradycardia, Tachycardia, Pulse Irregular, Gallop, Rub, Varicosities JVD: No Carotid Bruit: No PMI: Non-Displaced Heart Sounds: Yes: S1, S2. No: Split S2, S3, S4, Clicks, Gallop, Rub, Bruit Murmur: No: Systolic Murmur, Diastolic Murmur Edema: No Peripheral Pulses WNL: Yes Neurological: Yes: Unresponsive. No: Alert, Oriented Psychiatric: No: Alert, Oriented - Other Data Labs, Other Data: CBC, BMP 11/26/19 10:02 11/26/19 10:02 INR, PTT INR 1.29 (0.83-1.09) H 11/23/19 12:37 ekg nsr rbbb Imaging - Results Chest X-ray: Report Reviewed, Image Reviewed Cat Scan: Report Reviewed EKG: Report Reviewed, Image Reviewed Other: Report Reviewed, Image Reviewed Assessment/Plan 69 year old woman pmh multiple CVAs with residual deficits, parkinsons, CKD, h/o Afib [place] admitted with R hip fracture after a fall s/p surgical fixation found today with AMS, constricted pupils, minimally responsive, with concern for CVA. CT head showed no acute stroke or bleed. AMS -uncertain etiology -h/o CVA x 7 -CT head reported no acute CVA or bleed -Neurology evaluation -pt has history of AFib and is on eliquis. Eliquis was held for surgery but r esumed 11/24 -cont eliquis as long as safe from a neurologic standpoint (ie confirm no evidence of ICH) Afib -nsr on admission and on tele thus far -cont eliquis as long as safe as above -does not require AV tabitha blockers at this time
--- NOTE | 2019-11-26 14:00 | CONSULT ---
Admitting History and Physical - Admission History of Present Illness: 69F w/ pmh of multiple CVAs(x7 with residual word finding difficulties and gait difficulties), parkinson's, CKD, GERD, AFib(Eliquis) sent from [facility] for concern of acute Right hip pain w/ their XR findings showing lucency win the Right femoral head neck junction. Fall Right femoral neck fracture S/P Percutaneous Fixation of Right Femoral Neck Fracture Code barakat today,Patient has been found to have a fixed gaze upon evaluation by her nurse. Patient pale in appearance, absent blink reflex, mild twitching in UE and LE. Selected Entries 11/25/19 11/25/19 11/25/19 05:00 09:00 10:00 Breakfast Diet Tolerated Fair Lunch Supper Temperature 97.4 F L 97.4 F L Blood Pressure 132/57 L 127/59 L 11/25/19 11/25/19 11/25/19 14:00 15:19 19:31 Breakfast 25% Diet Tolerated Fair Lunch 25% Supper Temperature 97.5 F L 97.7 F Blood Pressure 110/49 L 105/42 L 11/25/19 11/26/19 11/26/19 21:05 06:00 09:32 Breakfast Diet Tolerated Well Well Lunch Supper 100% Temperature 98.4 F 97.4 F L Blood Pressure 128/76 121/78 11/26/19 11/26/19 09:41 11:30 Breakfast 25% Diet Tolerated Poor Lunch Supper Temperature 96.2 F L Blood Pressure 136/60 Laboratory Tests 11/21/19 11/26/19 22:30 10:02 WBC 6.8 COVID-19 (HONEY) Pending Nursing report non verbal, not following commands. Pt went downstairs for U/S. 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 Cardiovascular: Yes: CAD, HTN, Other (CABG) Renal/: Yes: Renal Inusuff ...: No Musculoskeletal: Yes: Chronic low back pain Endocrine: Yes: Diabetes Mellitus - Past Surgical History Past Surgical History: Yes: CABG - Smoking History Smoking history: Never smoked Have you smoked in the past 12 months: No - Alcohol/Substance Use Hx Alcohol Use: No - Social History ADL: Independent History - Admission Reason For Visit: CLOSED FRACTURE OF NECK OF RIGHT FEMUR - Hearing Hearing: Normal Speech Evaluation - Communication Primary Language: BULGARIAN Recommendations - Speech Evaluation, Impression/Plan Impression: Code barakat today. Acute change-nonverbal/not following commands. To follow - Recommendations Diet Consistency: NPO, Other (NPO including medication) Liquids: NPO
--- NOTE | 2019-11-26 15:32 | PN ---
Progress Note (short form) - Note Progress Note: ID consult dictated seen in the presence of her friend who is her POA as well history of multiple cvas in the past, lives in assisted living has been declining since the of her sister 5 years ago recent admission about a month ago to [facility] for hypoglycemia- her diabetes meds were discontinued at htat time, she went from there to rehab-and was sent from rehab to the hospital to r/o hip fracture- friend doesnot think she has ambulated since the hypoglycemia admission she had an episode of unresponsiveness this am- Rapid response was called- she was sent to ct scan- no acute cva was identified- she was given IM ativan at 11 am she has just returned from ultrasound- is arousable but lethargic- no fever (temp but po and rectal checked) resting comfortably she is s/p right hip surgery 11/22 for right femoral neck fracture lethargy/altared mental status no leukocytosis exam notable for lethargy, not responding to commands, but starting to speak a bit ct scan no acute cva ?palpable bladder normal wbc on labs exam not c/w sepsis difficult now that ativan has been given as well suggest blood cultures, ua and urine culture neurology f/u CKD- improved s/p multiple cvas Problem List - Problems (1) Altered mental state Code(s): R41.82 - ALTERED MENTAL STATUS, UNSPECIFIED (2) Fracture of femoral neck, right, closed Code(s): S72.001A - FRACTURE OF UNSP PART OF NECK OF RIGHT FEMUR, INIT Qualifiers: Encounter type: initial encounter Qualified Code(s): S72.001A - Fracture of unspecified part of neck of right femur, initial encounter for closed fracture (3) History of CVA (cerebrovascular accident) Code(s): Z86.73 - PRSNL HX OF TIA (TIA), AND CEREB INFRC W/O RESID DEFICITS (4) CKD (chronic kidney disease) Code(s): N18.9 - CHRONIC KIDNEY DISEASE, UNSPECIFIED
--- NOTE | 2019-11-26 17:01 | CONS ---
DATE OF CONSULTATION: DATE OF DICTATION: 11/26/2019 CHIEF COMPLAINT/HISTORY OF PRESENT ILLNESS: This is a 69-year-old woman who has a history of multiple CVAs, 7, in her 50s. Her friend is at the bedside, who is her power of regulatory attorney as well and reports that she has been medically stable since she has been on Eliquis since that time. She resides at an assisted living facility with maximal help there. Friend reports she has been declining in the last 5 years since she lost her sister. She was recently admitted about a month ago, unresponsive, to [facility] and was found to be hypoglycemic. Her diabetic medications were stopped, and she was discharged to the half-way for rehab. She was sent from the rehab facility with concern for right hip fracture. Apparently since the hypoglycemic episode, she has not been independently ambulating at all. They have tried to do some physical therapy, but except for that, she has been in the wheelchair. At her baseline she was awake and alert, oriented to her name on admission and following some commands. She was found to have a right femoral neck fracture. She underwent repair on the . This morning she was noted to be lethargic, and a rapid response was called for possible stroke. She had a fixed gaze at that time. She was sent for a stat head CT/CTA of the head and neck. She was given Ativan as well. She is currently returned. She just had an ultrasound of her legs as well and just returned from ultrasound. She remains lethargic but is speaking a little bit, not following commands. She has had both an oral and rectal temperature checked, which are both normal. Her head imaging shows no evidence of an acute PROCEDURES NURSE process. She was evaluated by neurology as well as cardiology and has been transferred to telemetry. Per the supervisor roving department, plan is for MRI and EEG and neuro checks. She was seen as well by cardiology, and she is being monitored on telemetry at this time. I am asked to see her for possible sepsis. PAST MEDICAL HISTORY: Notable for CVA x7 with some aphasia and gait difficulties, Parkinson's disease, CKD, GERD, atrial fibrillation on Eliquis. She has had back surgery in the past, and now this right femoral neck fracture repair. SOCIAL HISTORY: She resides at this assisted living facility. There is no history of cigarette, alcohol, or substance use. ALLERGIES: She is allergic to penicillin and sulfa, nature of allergy is not known, as well as Ambien, artificial sweeteners, and welch beans. MEDICATIONS: Include apixaban, carbidopa/levodopa, vitamin D3, Cymbalta, gabapentin, multivitamins, omega 3, Protonix, MiraLax, Ranexa, Crestor, and senna. Per her friend who is at the bedside, she has not had a consistent PMD for at least 5 years now. FAMILY HISTORY: Notable for the fact that she has been declining since her sister 5 years ago. REVIEW OF SYSTEMS: Not obtainable, but per the RN, there has been no fevers, chills, and she had had a wet diaper prior to going down for ultrasound. PHYSICAL EXAMINATION: Vital Signs: Temperature has been checked orally and rectally and is 97.4. Pulse is 67, blood pressure 109/61, respiratory rate 16 and nonlabored, and she is saturating 95%. General: She is an elderly woman in no acute distress. She is speaking now, some slurred speech, which her friend reports is not at her baseline. Neck: Supple. Lungs: Have diminished breath sounds at the bases. Heart: Regular rate and rhythm. Abdomen: Firm. She has a palpable bladder in her lower abdomen. Extremities: She has a dressing at the site of the hip fracture. LABORATORY: Notable for a normal white count of 6.8, hemoglobin 8.4, platelets of 178. BUN is 36 and creatinine 2.2, which is improved markedly since admission. Creatinine of 3.3. Liver function tests are normal. Urinalysis on admission negative for leukocyte esterase, and urine culture on admission was negative. COVID-19 is still pending. SUMMARY: 1. This is a 69-year-old woman who had an episode of unresponsiveness. I suspect further exacerbated by the Ativan that she is given as well. Her exam is not consistent with sepsis. Suggest obtaining blood cultures, a UA, and urine culture, with close neurology followup. 2. Status post right femoral neck fracture and repair November 23, 2019. 3. History of multiple CVAs. VARGHESE OLIVIA M.D. [id number]
--- NOTE | 2019-11-26 17:05 | PN ---
Progress Note, Physician History of Present Illness: Seen and examined at the bedside sleeping, groggy todays events reviewed noted to have AMS, CT head negative for acute CVA s/p Ativan earlier today - Current Medication List Current Medications: Active Medications Acetaminophen (Tylenol -) 1,000 mg PO Q6H PRN PRN Reason: PAIN LEVEL 1-5 Last Admin: 11/25/19 21:09 Dose: 1,000 mg Documented by: Apixaban (Eliquis -) 5 mg PO BID [facility] Last Admin: 11/26/19 09:10 Dose: 5 mg Documented by: Carbidopa/Levodopa (Sinemet 10/100 -) 1 each PO TID [facility] Last Admin: 11/26/19 05:45 Dose: 1 each Documented by: Docusate Sodium (Colace -) 100 mg PO BID PRN PRN Reason: CONSTIPATION Last Admin: 11/25/19 09:37 Dose: 100 mg Documented by: Duloxetine HCl (Cymbalta -) 60 mg PO DAILY [facility] Last Admin: 11/26/19 09:10 Dose: 60 mg Documented by: Gabapentin (Neurontin -) 300 mg PO TID [facility] Last Admin: 11/26/19 05:46 Dose: 300 mg Documented by: Sodium Chloride (Normal Saline -) 500 mls @ 150 mls/hr IV ASDIR [facility] Last Admin: 11/26/19 12:56 Dose: 150 mls/hr Documented by: Pantoprazole Sodium (Protonix -) 40 mg PO DAILY [facility] Last Admin: 11/26/19 09:09 Dose: 40 mg Documented by: Polyethylene Glycol (Miralax (For Daily Use) -) 17 gm PO DAILY [facility] Last Admin: 11/26/19 09:10 Dose: 17 gm Documented by: Polysaccharide Iron Complex (Niferex-150 -) 150 mg PO DAILY [facility] Last Admin: 11/26/19 09:10 Dose: 150 mg Documented by: Ranolazine (Ranexa -) 1,000 mg PO DAILY [facility] Last Admin: 11/26/19 09:11 Dose: 1,000 mg Documented by: Ranolazine (Ranexa -) 500 mg PO [facility] Last Admin: 11/25/19 21:09 Dose: 500 mg Documented by: Rosuvastatin Calcium (Crestor -) 10 mg PO [facility] Last Admin: 11/25/19 21:09 Dose: 10 mg Documented by: - Objective Vital Signs: Vital Signs Temperature 97.4 F L 11/26/19 14:00 Pulse Rate 67 11/26/19 14:00 Respiratory Rate 16 11/26/19 14:00 Blood Pressure 109/61 11/26/19 14:00 O2 Sat by Pulse Oximetry (%) 95 11/26/19 12:00 Constitutional: Yes: No Distress HENT: Yes: Atraumatic Neck: Yes: Supple Cardiovascular: Yes: Regular Rate and Rhythm Respiratory: Yes: Regular Extremities: No: Cyanosis Edema: No Neurological: No: Alert Labs: CBC, BMP 11/26/19 10:02 11/26/19 10:02 INR, PTT INR 1.29 (0.83-1.09) H 11/23/19 12:37 Assessment/Plan 69 year old woman with history of multiple strokes, parkinsons's disease, CKD, GERD and atrial fibrillation on anticoagulation who [place] wit a mechanical fall and hip pain and found to have a acute hip fracture and abnormal renal function. 1. Acute on chronic renal insuffiency 2. CKD 3. Hip fracture 4. Dementia 5. Anemia 6. Hyperchloremia 7. Renal cysts Renal function stable can continue maintiance fluids as needed during time of AMS/poor oral intake Pain control w/o NSIADs Renal US showed no signs of obstruction Trend H/H, check iron studies for anemia. Ortho follow up Magnus Awan DO
[2019-11-26 18:53] LABS: EPI CELLS 1 /uL (0-25.1); HYALINE CASTS 1 /uL (0-3.1); URINE APPEARANCE CLEAR; URINE BILIRUBIN NEGATIVE (NEGATIVE); URINE COLOR YELLOW; URINE GLUCOSE (UA) NEGATIVE (NEGATIVE); URINE KETONE NEGATIVE (NEGATIVE); URINE LEUK ESTERASE 1+ (NEGATIVE); URINE NITRITE POSITIVE (NEGATIVE); URINE PROTEIN 1+ (NEGATIVE); URINE RBC 4 /uL (0-23.9); URINE UROBILINOGEN 0.2 mg/dL (0.2-1.0); URINE WBC 128 /uL (0-25.8)
--- NOTE | 2019-11-26 19:08 | PN ---
Progress Note (short form) - Note Progress Note: ORTHOPEDIC SURGERY PROGRESS NOTE Department of Orthopedic Surgery SUBJECTIVE Events today noted. No complaints currently. Resting in bed comfortably. Confused but able to follow some commands. Denies chest pain, shortness of breath, or calf pain. No nausea or vomiting. Pain controlled. PHYSICAL EXAMINATION General: Alert, oriented, cooperative and no distress. Lower Extremity: Margarito intact. No drainage or signs of infection. Compartments soft. Muscle mass equal and symmetric to contralateral side. No atrophy noted. No masses or effusions noted. No tenderness to palpation. Full passive and active ROM, free from pain. Motor/sensory exam unable to be performed due to poor compliance with exam. Actively moves ankle and toes. 2+ DP pulses; Cap refill brisk. DVT Exam: No evidence of DVT seen on physical exam; No cords or calf tenderness; No significant calf/ankle edema. Intake & Output 11/24/19 11/25/19 11/26/19 23:59 23:59 23:59 Intake Total 30 1914 450 Balance 30 1914 450 Intake: IV 1494 450 LACTATED RINGERS SOLUTION 1494 1,000 ml In 1,000 ml @ 83 mls/hr IV ASDIR [facility]IC[facility] Rx #:[id number] Normal Saline - 450 ml @ 450 150 mls/hr IV ASDIR [facility] Rx#:[id number] Oral 30 420 Other: Voiding Method Incontinent Incontinent Toilet # Unmeasured Voids Void 1 3 1 Bowel Movement No No No # Bowel Movements 0 Weight 157 lb 6.4 oz 159 lb 11.2 oz 157 lb 2 oz Height 5 ft 8 in Body Mass Index (BMI) 23.9 Weight Measurement Method Built in [facility] Built in [facility] Built in [facility] Active Medications Generic Name Dose Route Start Last Admin Trade Name Freq PRN Reason Stop Dose Admin Acetaminophen 1,000 mg 11/23/19 14:42 11/25/19 21:09 Tylenol - PO 1,000 mg Q6H PRN Administration PAIN LEVEL 1-5 Apixaban 5 mg 11/25/19 10:00 11/26/19 09:10 Eliquis - PO 5 mg BID [facility] Administration Carbidopa/Levodopa 1 each 11/23/19 22:00 11/26/19 14:00 Sinemet 10/100 - PO Not Given TID [facility] Docusate Sodium 100 mg 11/23/19 14:44 11/25/19 09:37 Colace - PO 100 mg BID PRN Administration CONSTIPATION Duloxetine HCl 60 mg 11/24/19 10:00 11/26/19 09:10 Cymbalta - PO 60 mg DAILY [facility] Administration Gabapentin 300 mg 11/23/19 14:00 11/26/19 14:00 Neurontin - PO Not Given TID [facility] Sodium Chloride 500 mls @ 150 mls/hr 11/26/19 12:41 11/26/19 12:56 Normal Saline - IV 150 mls/hr ASDIR [facility] Administration Pantoprazole Sodium 40 mg 11/24/19 10:00 11/26/19 09:09 Protonix - PO 40 mg DAILY [facility] Administration Polyethylene Glycol 17 gm 11/24/19 10:00 11/26/19 09:10 Miralax (For Daily Use) - PO 17 gm DAILY [facility] Administration Polysaccharide Iron Complex 150 mg 11/24/19 10:00 11/26/19 09:10 Niferex-150 - PO 150 mg DAILY [facility] Administration Ranolazine 1,000 mg 11/24/19 10:00 11/26/19 09:11 Ranexa - PO 1,000 mg DAILY [facility] Administration Ranolazine 500 mg 11/23/19 22:00 11/25/19 21:09 Ranexa - PO 500 mg HS [facility] Administration Rosuvastatin Calcium 10 mg 11/23/19 22:00 11/25/19 21:09 Crestor - PO 10 mg HS [facility] Administration Vital Signs (last) Temp Pulse Resp BP Pulse Ox 97.6 F 64 17 100/44 L 100 11/26/19 18:00 11/26/19 18:00 11/26/19 18:00 11/26/19 18:00 11/26/19 18:00 Laboratory (coagulation) PT with INR 15.30 SEC (9.7-13.0) H 11/23/19 12:37 Laboratory 11/26/19 10:02 11/26/19 10:02 ASSESSMENT AND PLAN Kailee Ayers is a 69 year old female status post right hip CRPP. POD#3. Hemodynamically stable. - Appreciate medical management - Dressing changed today - Pain control: Transition to oral pain medications, minimize narcotic use - DVT prophylaxis; continue with Eliquis if no contraindications - Ice/Elevation right hip - Nutrition optimization - Decubitus precautions heel/sacrum - PT/OT; TTWB RLE
[2019-11-26] MEDS ORDERED: PT OWN MED DRAWER 7, Y5N ONE (21:08)
[2019-11-26] MEDS: ROSUVASTATIN CA 10 MG TABLET (FP) PO SCH (21:27)
[2019-11-26] MEDS: RANOLAZINE E.R. 500 MG TABLET (FP) PO SCH (21:27)
[2019-11-27 07:13] LABS: BASO % 0.6 % (0-2.0); EOS % 4.8 % (0-4.5); HEMATOCRIT 24.3 % (32.4-45.2); HEMOGLOBIN 7.7 GM/dL (10.7-15.3); LYMPH % 11.3 % (8-40); MCHC 31.8 g/dl (32.0-36.0); MEAN CELL VOLUME 87.9 fl (80-96); MEAN PLT VOLUME 8.6 fl (7.5-11.1); MONO % 8.9 % (3.8-10.2); NEUT % 74.4 % (42.8-82.8); PLATELET COUNT 201 K/MM3 (134-434); RBC 2.76 M/mm3 (3.60-5.2); WHITE BLOOD COUNT 5.4 K/mm3 (4.0-10.0)
[2019-11-27 07:34] LABS: BLOOD UREA NITROGEN 31.5 mg/dL (7-18); CALCIUM 9.7 mg/dL (8.5-10.1); CREATININE 2.3 mg/dL (0.55-1.3); MAGNESIUM 2.2 mg/dL (1.8-2.4); PHOSPHOROUS 2.3 mg/dL (2.5-4.9); POTASSIUM 4.4 mmol/L (3.5-5.1)
[2019-11-27] MEDS: CARBIDOPA/LEVODOPA 10/100 TABLET (FP) PO SCH ×3 (07:43→23:11)
[2019-11-27] MEDS: GABAPENTIN 300 MG CAPSULE PO SCH ×3 (07:43→23:11)
--- NOTE | 2019-11-27 08:11 | PN ---
Progress Note, Physician - Current Medication List Current Medications: Active Medications Acetaminophen (Tylenol -) 1,000 mg PO Q6H PRN PRN Reason: PAIN LEVEL 1-5 Last Admin: 11/25/19 21:09 Dose: 1,000 mg Documented by: Apixaban (Eliquis -) 5 mg PO BID [facility] Last Admin: 11/26/19 21:27 Dose: Not Given Documented by: Carbidopa/Levodopa (Sinemet 10/100 -) 1 each PO TID [facility] Last Admin: 11/27/19 07:43 Dose: Not Given Documented by: Docusate Sodium (Colace -) 100 mg PO BID PRN PRN Reason: CONSTIPATION Last Admin: 11/25/19 09:37 Dose: 100 mg Documented by: Duloxetine HCl (Cymbalta -) 60 mg PO DAILY [facility] Last Admin: 11/26/19 09:10 Dose: 60 mg Documented by: Gabapentin (Neurontin -) 300 mg PO TID [facility] Last Admin: 11/27/19 07:43 Dose: Not Given Documented by: Sodium Chloride (Normal Saline -) 500 mls @ 150 mls/hr IV ASDIR [facility] Last Admin: 11/26/19 12:56 Dose: 150 mls/hr Documented by: Pantoprazole Sodium (Protonix -) 40 mg PO DAILY [facility] Last Admin: 11/26/19 09:09 Dose: 40 mg Documented by: Polyethylene Glycol (Miralax (For Daily Use) -) 17 gm PO DAILY [facility] Last Admin: 11/26/19 09:10 Dose: 17 gm Documented by: Polysaccharide Iron Complex (Niferex-150 -) 150 mg PO DAILY [facility] Last Admin: 11/26/19 09:10 Dose: 150 mg Documented by: Ranolazine (Ranexa -) 1,000 mg PO DAILY [facility] Last Admin: 11/26/19 09:11 Dose: 1,000 mg Documented by: Ranolazine (Ranexa -) [address] [facility] Last Admin: 11/26/19 21:27 Dose: Not Given Documented by: Rosuvastatin Calcium (Crestor -) [address] [facility] Last Admin: 11/26/19 21:27 Dose: Not Given Documented by: - Objective Vital Signs: Vital Signs Temperature 98.4 F 11/27/19 05:46 Pulse Rate 70 07/23/20 05:46 Respiratory Rate 20 11/26/20 05:46 Blood Pressure 116/55 L 11/27/19 05:46 O2 Sat by Pulse Oximetry (%) 93 L 11/27/19 05:46 Cardiovascular: Yes: S1, S2 Respiratory: Yes: Regular, CTA Bilaterally Gastrointestinal: Yes: Normal Bowel Sounds, Soft Neurological: Yes: Lethargy (LESS OPENS EYES AND ANSWERS SIMPLE QUESTIONS) Labs: CBC, BMP 11/27/19 06:39 11/27/19 06:39 INR, PTT INR 1.29 (0.83-1.09) H 11/23/19 12:37 Assessment/Plan - Problems (1) TEJA (acute kidney injury) Assessment/Plan: -Cr improving -Nephrology consult -U/S renal: BL renal cyst -Continue IVF -Monitor trend Problems reviewed: Yes Code(s): N17.9 - ACUTE KIDNEY FAILURE, UNSPECIFIED (2) Anemia Assessment/Plan: -Trending down -Iron % low -Injectafer once done -PRBC one unit -Iron polysaccharide 150 mg po daily -B 12, thyroid profile normal -Stool OB pending Problems reviewed: Yes Code(s): D64.9 - ANEMIA, UNSPECIFIED (3) Fall Assessment/Plan: -Safety precautions -Physical therapy -SNF Problems reviewed: Yes Code(s): W19.XXXA - UNSPECIFIED FALL, INITIAL ENCOUNTER Qualifiers: Encounter type: initial encounter Qualified Code(s): W19.XXXA - Unspecified fall, initial encounter (4) Fracture of femoral neck, right, closed Assessment/Plan: -Seen by orthopedic surgery -S/P right femoral neck fixation -Physical therapy -Pain management: Acetaminophen 1g Q6H PRN for pain Problems reviewed: Yes Code(s): S72.001A - FRACTURE OF UNSP PART OF NECK OF RIGHT FEMUR, INIT Qualifiers: Encounter type: initial encounter Qualified Code(s): S72.001A - Fracture of unspecified part of neck of right femur, initial encounter for closed fracture (5) Altered mental state Assessment/Plan: -Lethargic slightly improved -ct no evidence of CVA -Afebrile cultures done -Labs noted Problems reviewed: Yes Code(s): R41.82 - ALTERED MENTAL STATUS, UNSPECIFIED (6) Diabetes mellitus Assessment/Plan: -A1c at 6.3 -D/C BGM--do stat bgm -D/C ISS Problems reviewed: Yes Code(s): E11.9 - TYPE 2 DIABETES MELLITUS WITHOUT COMPLICATIONS
--- NOTE | 2019-11-27 10:31 | PN ---
Progress Note, [employer] - Note Progress Note: NPO [id number] wbc on labs exam not c/w sepsis difficult now that ativan has been given as well suggest blood cultures, ua and urine culture neurology f/u Selected Entries 11/26/19 11/26/19 11/26/19 06:00 09:41 14:00 Breakfast 25% Diet Tolerated Well Poor Lunch NPO Supper 100% Temperature Blood Pressure 11/26/19 11/27/19 11/27/19 19:56 02:00 05:46 Breakfast Diet Tolerated Lunch Supper NPO Temperature 98.3 F 98.4 F Blood Pressure 127/54 L 116/55 L 11/27/19 09:07 Breakfast Diet Tolerated Lunch Supper Temperature 98 F Blood Pressure 114/52 L Laboratory Tests 11/27/19 06:39 WBC 5.4 Laboratory Tests 11/21/19 22:30 COVID-19 ([facility]) Pending Much improved since lisbeth. Verbal, hesitant, anomia. Reports double vision, "same as before, started 4 months ago" Aware she had "7 strokes" Swallowing intact. No dysarthria. Suggest- Soft, reg diet/thin liquids
[2019-11-27] MEDS ORDERED: PT OWN MED DRAWER 7, Y5N ONE ×3 (10:59→23:06)
[2019-11-27] MEDS: DULoxetine HCL 30 MG CAPSULE.DR PO SCH (11:03)
[2019-11-27] MEDS: APIXABAN 5 MG TABLET PO SCH ×2 (11:03→23:11)
[2019-11-27] MEDS: PANTOPRAZOLE 40 MG TABLET PO SCH (11:16)
[2019-11-27] MEDS: IRON POLYSACCHARIDES 150 MG CAPSULE PO SCH (11:17)
[2019-11-27] MEDS: POLYETHYLENE GLYCOL 3350 119 GM BTL PO SCH (11:18)
[2019-11-27] MEDS: RANOLAZINE E.R. 1,000 MG TABLET (FP) PO SCH (11:19)
--- NOTE | 2019-11-27 11:49 | PN ---
Progress Note, Physician History of Present Illness: seen and examined today in nad. mental status significantly improved since yesterday. now awake, alert, communicative. difficulty with word finding. does not recall the events of yesterday. - Current Medication List Current Medications: Active Medications Acetaminophen (Tylenol -) 1,000 mg PO Q6H PRN PRN Reason: PAIN LEVEL 1-5 Last Admin: 11/25/19 21:09 Dose: 1,000 mg Documented by: Apixaban (Eliquis -) 5 mg PO BID [facility] Last Admin: 11/27/19 11:03 Dose: 5 mg Documented by: Carbidopa/Levodopa (Sinemet 10/100 -) 1 each PO TID [facility] Last Admin: 11/27/19 07:43 Dose: Not Given Documented by: Docusate Sodium (Colace -) 100 mg PO BID PRN PRN Reason: CONSTIPATION Last Admin: 11/25/19 09:37 Dose: 100 mg Documented by: Duloxetine HCl (Cymbalta -) 60 mg PO DAILY [facility] Last Admin: 11/27/19 11:03 Dose: 60 mg Documented by: Gabapentin (Neurontin -) 300 mg PO TID [facility] Last Admin: 11/27/19 07:43 Dose: Not Given Documented by: Sodium Chloride (Normal Saline -) 500 mls @ 150 mls/hr IV ASDIR [facility] Last Admin: 11/26/19 12:56 Dose: 150 mls/hr Documented by: Pantoprazole Sodium (Protonix -) 40 mg PO DAILY [facility] Last Admin: 11/27/19 11:16 Dose: 40 mg Documented by: Polyethylene Glycol (Miralax (For Daily Use) -) 17 gm PO DAILY [facility] Last Admin: 11/27/19 11:18 Dose: Not Given Documented by: Polysaccharide Iron Complex (Niferex-150 -) 150 mg PO DAILY [facility] Last Admin: 11/27/19 11:17 Dose: 150 mg Documented by: Ranolazine (Ranexa -) 1,000 mg PO DAILY [facility] Last Admin: 11/27/19 11:19 Dose: Not Given Documented by: Ranolazine (Ranexa -) 500 mg PO [facility] Last Admin: 11/26/19 21:27 Dose: Not Given Documented by: Rosuvastatin Calcium (Crestor -) 10 mg PO [facility] Last Admin: 11/26/19 21:27 Dose: Not Given Documented by: - Objective Vital Signs: Vital Signs Temperature 98 F 11/27/19 09:07 Pulse Rate 72 11/27/19 09:07 Respiratory Rate 20 11/27/19 09:07 Blood Pressure 114/52 L 11/27/19 09:07 O2 Sat by Pulse Oximetry (%) 96 11/27/19 09:07 Constitutional: Yes: No Distress, Calm Eyes: Yes: Conjunctiva Clear, EOM Intact HENT: Yes: Atraumatic, Normocephalic Neck: Yes: Supple, Trachea Midline Cardiovascular: Yes: Regular Rate and Rhythm, S1, S2. No: Bradycardia, Tachycardia, Pulse Irregular, Bruit, JVD, Gallop, Murmur, Rub, S3, S4, Varicosities Respiratory: Yes: Regular, CTA Bilaterally. No: Rales, Rhonchi, Wheezes Gastrointestinal: Yes: Normal Bowel Sounds, Soft. No: Distention, Tenderness Musculoskeletal: Yes: WNL Extremities: Yes: WNL Edema: No Peripheral Pulses WNL: Yes Peripheral Pulses: Left Doralis Pedis: 2+, Right Dorsalis Pedis: 2+ Neurological: Yes: Alert Psychiatric: Yes: Alert Labs: CBC, BMP 11/27/19 06:39 11/27/19 06:39 INR, PTT INR 1.29 (0.83-1.09) H 11/23/19 12:37 - ....Imaging Chest X-ray: Report Reviewed, Image Reviewed EKG: Report Reviewed, Image Reviewed Other: Report Reviewed, Image Reviewed (tele-nsr, apcs) Assessment/Plan 69 year old woman pmh multiple CVAs with residual deficits, parkinsons, CKD, h/o Afib on eliquis, [place] after a fall s/p surgical fixation found today with AMS, constricted pupils, minimally responsive, with concern for CVA. CT head showed no acute stroke or bleed. AMS -does not appear to be of cardiac etiology -h/o CVA x 7 -CT head reported no acute CVA or bleed -Neurology following -pt has history of AFib and is on eliquis. Eliquis was held for surgery but resumed 11/24 -cont eliquis as long as safe from a neurologic standpoint (ie confirm no ev idence of ICH) Afib -nsr on admission and on tele thus far -cont eliquis as long as safe as above -does not require AV tabitha blockers at this time
--- NOTE | 2019-11-27 11:53 | PN ---
Progress Note, Physician History of Present Illness: evens noted Seen on Tele Noted [facility] cardiology and Nephrology Await [facility] MRI - Current Medication List Current Medications: Active Medications Acetaminophen (Tylenol -) 1,000 mg PO Q6H PRN PRN Reason: PAIN LEVEL 1-5 Last Admin: 11/25/19 21:09 Dose: 1,000 mg Documented by: Apixaban (Eliquis -) 5 mg PO BID [facility] Last Admin: 11/27/19 11:03 Dose: 5 mg Documented by: Carbidopa/Levodopa (Sinemet 10/100 -) 1 each PO TID [facility] Last Admin: 11/27/19 07:43 Dose: Not Given Documented by: Docusate Sodium (Colace -) 100 mg PO BID PRN PRN Reason: CONSTIPATION Last Admin: 11/25/19 09:37 Dose: 100 mg Documented by: Duloxetine HCl (Cymbalta -) 60 mg PO DAILY [facility] Last Admin: 11/27/19 11:03 Dose: 60 mg Documented by: Gabapentin (Neurontin -) 300 mg PO TID [facility] Last Admin: 11/27/19 07:43 Dose: Not Given Documented by: Sodium Chloride (Normal Saline -) 500 mls @ 150 mls/hr IV ASDIR [facility] Last Admin: 11/26/19 12:56 Dose: 150 mls/hr Documented by: Pantoprazole Sodium (Protonix -) 40 mg PO DAILY [facility] Last Admin: 11/27/19 11:16 Dose: 40 mg Documented by: Polyethylene Glycol (Miralax (For Daily Use) -) 17 gm PO DAILY [facility] Last Admin: 11/27/19 11:18 Dose: Not Given Documented by: Polysaccharide Iron Complex (Niferex-150 -) 150 mg PO DAILY [facility] Last Admin: 11/27/19 11:17 Dose: 150 mg Documented by: Ranolazine (Ranexa -) 1,000 mg PO DAILY [facility] Last Admin: 11/27/19 11:19 Dose: Not Given Documented by: Ranolazine (Ranexa -) 500 mg PO [facility] Last Admin: 11/26/19 21:27 Dose: Not Given Documented by: Rosuvastatin Calcium (Crestor -) 10 mg PO [facility] Last Admin: 11/26/19 21:27 Dose: Not Given Documented by: - Objective Vital Signs: Vital Signs Temperature 98 F 11/27/19 09:07 Pulse Rate 72 11/27/19 09:07 Respiratory Rate 20 11/27/19 09:07 Blood Pressure 114/52 L 11/27/19 09:07 O2 Sat by Pulse Oximetry (%) 96 11/27/19 09:07 Constitutional: Yes: Well Nourished Eyes: Yes: WNL HENT: Yes: WNL Musculoskeletal: Yes: Back Pain, Joint Stiffness Neurological: Yes: Alert, Oriented, Cran Nerves II-XII Intact ...Motor Strength: WNL Labs: CBC, BMP 11/27/19 06:39 11/27/19 06:39 INR, PTT INR 1.29 (0.83-1.09) H 11/23/19 12:37 Problem List - Problems (1) Altered mental state Code(s): R41.82 - ALTERED MENTAL STATUS, UNSPECIFIED (2) Encephalitis Code(s): G04.90 - ENCEPHALITIS AND ENCEPHALOMYELITIS, UNSPECIFIED (3) Stroke Code(s): I63.9 - CEREBRAL INFARCTION, UNSPECIFIED Assessment/Plan 1. Neuro checks 2. EEG 3. MRI brain when medically stable 4. Seziure precautions 5. DVT prophylaxis
[2019-11-27] MEDS ORDERED: INSULIN SLIDING SCALE (NOVOLOG) 1 VIAL SQ ONE (12:58)
[2019-11-27] MEDS: SODIUM CHLORIDE 500 ML IV SCH (13:44)
[2019-11-27] MEDS ORDERED: EPOETIN ALFA 20,000 UNIT/1 ML VIAL SQ ONE (13:47)
--- NOTE | 2019-11-27 13:47 | PN ---
Progress Note, Physician History of Present Illness: Seen and examined at the bedside awake and alert offers no acute complaints mental status improved from yesterday tolerating meals as per nursing staff - Current Medication List Current Medications: Active Medications Acetaminophen (Tylenol -) 1,000 mg PO Q6H PRN PRN Reason: PAIN LEVEL 1-5 Last Admin: 11/25/19 21:09 Dose: 1,000 mg Documented by: Apixaban (Eliquis -) 5 mg PO BID [facility] Last Admin: 11/27/19 11:03 Dose: 5 mg Documented by: Carbidopa/Levodopa (Sinemet 10/100 -) 1 each PO TID [facility] Last Admin: 11/27/19 07:43 Dose: Not Given Documented by: Docusate Sodium (Colace -) 100 mg PO BID PRN PRN Reason: CONSTIPATION Last Admin: 11/25/19 09:37 Dose: 100 mg Documented by: Duloxetine HCl (Cymbalta -) 60 mg PO DAILY [facility] Last Admin: 11/27/19 11:03 Dose: 60 mg Documented by: Gabapentin (Neurontin -) 300 mg PO TID [facility] Last Admin: 11/27/19 07:43 Dose: Not Given Documented by: Sodium Chloride (Normal Saline -) 500 mls @ 150 mls/hr IV ASDIR [facility] Last Admin: 11/26/19 12:56 Dose: 150 mls/hr Documented by: Pantoprazole Sodium (Protonix -) 40 mg PO DAILY [facility] Last Admin: 11/27/19 11:16 Dose: 40 mg Documented by: Polyethylene Glycol (Miralax (For Daily Use) -) 17 gm PO DAILY [facility] Last Admin: 11/27/19 11:18 Dose: Not Given Documented by: Polysaccharide Iron Complex (Niferex-150 -) 150 mg PO DAILY [facility] Last Admin: 11/27/19 11:17 Dose: 150 mg Documented by: Ranolazine (Ranexa -) 1,000 mg PO DAILY [facility] Last Admin: 11/27/19 11:19 Dose: Not Given Documented by: Ranolazine (Ranexa -) 500 mg PO [facility] Last Admin: 11/26/19 21:27 Dose: Not Given Documented by: Rosuvastatin Calcium (Crestor -) 10 mg PO [facility] Last Admin: 11/26/19 21:27 Dose: Not Given Documented by: - Objective Vital Signs: Vital Signs Temperature 98 F 11/27/19 09:07 Pulse Rate 72 11/27/19 09:07 Respiratory Rate 20 11/27/19 09:07 Blood Pressure 114/52 L 11/27/19 09:07 O2 Sat by Pulse Oximetry (%) 96 11/27/19 09:07 Constitutional: Yes: No Distress HENT: Yes: Atraumatic Neck: Yes: Supple Respiratory: Yes: Regular. No: Rales, Rhonchi, SOB Gastrointestinal: Yes: Soft Genitourinary: No: Bladder Distention Edema: No Labs: CBC, BMP 11/27/19 06:39 11/27/19 06:39 INR, PTT INR 1.29 (0.83-1.09) H 11/23/19 12:37 Assessment/Plan 69 year old woman with history of multiple strokes, parkinsons's disease, CKD, GERD and atrial fibrillation on anticoagulation who presented [place] the [place] wit a mechanical fall and hip pain and found to have a acute hip fracture and abnormal renal function. 1. Acute on chronic renal insuffiency 2. CKD 3. Hip fracture 4. Dementia 5. Anemia 6. Hyperchloremia 7. Renal cysts Renal function stable can discontinue fluids as pts mental status is improved and tolerating oral diet Pain control w/o NSIADs Renal US showed no signs of obstruction Hgb trending down, iron studies show low iron and is currently on oral iron. Will give Epogen 20k SC x 1 as pt does have CKD and that may be a factor in her worsening anemia Check stool occult blood as well. Magnus Awan DO
--- NOTE | 2019-11-27 15:09 | PN ---
Progress Note (short form) - Note Progress Note: Awake but confused. Breathing is nonlabored. No acute events overnight. Intake & Output 11/24/19 11/25/19 11/26/19 11/27/19 23:59 23:59 23:59 23:59 Intake Total 1913 Balance 1913 Weight 157 lb 6.4 oz 159 lb 11.2 oz 157 lb 2 oz Last Vital Signs Temp Pulse Resp BP Pulse Ox 98.0 F 82 16 113/47 L 96 11/27/19 14:00 11/27/19 14:00 11/27/19 14:00 11/27/19 14:00 11/27/19 09:07 Active Medications Acetaminophen (Tylenol -) 1,000 mg PO Q6H PRN PRN Reason: PAIN LEVEL 1-5 Last Admin: 11/25/19 21:09 Dose: 1,000 mg Documented by: Apixaban (Eliquis -) 5 mg PO BID [facility] Last Admin: 11/27/19 11:03 Dose: 5 mg Documented by: Carbidopa/Levodopa (Sinemet 10/100 -) 1 each PO TID [facility] Last Admin: 11/27/19 14:20 Dose: 1 each Documented by: Docusate Sodium (Colace -) 100 mg PO BID PRN PRN Reason: CONSTIPATION Last Admin: 11/25/19 09:37 Dose: 100 mg Documented by: Duloxetine HCl (Cymbalta -) 60 mg PO DAILY [facility] Last Admin: 11/27/19 11:03 Dose: 60 mg Documented by: Gabapentin (Neurontin -) 300 mg PO TID [facility] Last Admin: 11/27/19 14:20 Dose: 300 mg Documented by: Pantoprazole Sodium (Protonix -) 40 mg PO DAILY [facility] Last Admin: 11/27/19 11:16 Dose: 40 mg Documented by: Polyethylene Glycol (Miralax (For Daily Use) -) 17 gm PO DAILY [facility] Last Admin: 11/27/19 11:18 Dose: Not Given Documented by: Polysaccharide Iron Complex (Niferex-150 -) 150 mg PO DAILY [facility] Last Admin: 11/27/19 11:17 Dose: 150 mg Documented by: Ranolazine (Ranexa -) 1,000 mg PO DAILY [facility] Last Admin: 11/27/19 11:19 Dose: Not Given Documented by: Ranolazine (Ranexa -) [address] [facility] Last Admin: 11/26/19 21:27 Dose: Not Given Documented by: Rosuvastatin Calcium (Crestor -) [address] [facility] Last Admin: 11/26/19 21:27 Dose: Not Given Documented by: Constitutional: Yes: No Distress HENT: Yes: Atraumatic Neck: Yes: Supple Respiratory: Yes: few scattered rhonchi Gastrointestinal: Yes: Soft Edema: No Neurological: Yes: Awake, confused Labs: Laboratory Results - last 24 hr 11/24/19 11/26/19 11/27/19 11:41 18:30 06:39 WBC 5.4 RBC 2.76 L Hgb 7.7 L Hct 24.3 L MCV 87.9 MCH 28.0 MCHC 31.8 L RDW 19.0 H Plt Count 201 MPV 8.6 Absolute Neuts (auto) 4.0 Neutrophils % 74.4 Lymphocytes % 11.3 D Monocytes % 8.9 Eosinophils % 4.8 H Basophils % 0.6 Nucleated RBC % 0 Sodium Potassium Chloride Carbon Dioxide Anion Gap BUN Creatinine Est GFR (CKD-EPI)AfAm Est GFR (CKD-EPI)NonAf POC Glucometer 215 Random Glucose Calcium Phosphorus Magnesium Ammonia Triglycerides Cholesterol Total LDL Cholesterol HDL Cholesterol Urine Color Yellow Urine Appearance Clear Urine pH 5.0 Ur Specific [place] 1.012 Urine Protein 1+ H Urine Glucose (UA) Negative Urine Ketones Negative Urine Blood 1+ H Urine Nitrite Positive H Urine Bilirubin Negative Urine Urobilinogen 0.2 Ur Leukocyte Esterase 1+ H Urine WBC (Auto) 128 Urine RBC (Auto) 4 Urine Casts (Auto) 1 U Epithel Cells (Auto) 1 Urine Bacteria (Auto) >10,000 Blood Type Antibody Screen Crossmatch 11/27/19 11/27/19 11/27/19 06:39 08:11 10:25 WBC RBC Hgb Hct MCV MCH MCHC RDW Plt Count MPV Absolute Neuts (auto) Neutrophils % Lymphocytes % Monocytes % Eosinophils % Basophils % Nucleated RBC % Sodium 142 Potassium 4.4 Chloride 109 H Carbon Dioxide 27 Anion Gap 6 L BUN 31.5 H Creatinine 2.3 H Est GFR (CKD-EPI)AfAm 24.32 Est GFR (CKD-EPI)NonAf 20.98 POC Glucometer Random Glucose 128 H Calcium 9.7 Phosphorus 2.3 L Magnesium 2.2 Ammonia < 10.00 L Triglycerides 170 H Cholesterol 100 Total LDL Cholesterol 44 HDL Cholesterol 30 L Urine Color Urine Appearance Urine pH Ur Specific [place] Urine Protein Urine Glucose (UA) Urine Ketones Urine Blood Urine Nitrite Urine Bilirubin Urine Urobilinogen Ur Leukocyte Esterase Urine WBC (Auto) Urine RBC (Auto) Urine Casts (Auto) U Epithel Cells (Auto) Urine Bacteria (Auto) Blood Type O NEGATIVE Antibody Screen Negative Crossmatch See Detail Problem List - Problems (1) Hypoxemia Code(s): R09.02 - HYPOXEMIA (2) TEJA (acute kidney injury) Code(s): N17.9 - ACUTE KIDNEY FAILURE, UNSPECIFIED (3) Anemia Code(s): D64.9 - ANEMIA, UNSPECIFIED (4) Fall Code(s): W19.XXXA - UNSPECIFIED FALL, INITIAL ENCOUNTER Qualifiers: Encounter type: initial encounter Qualified Code(s): W19.XXXA - Unspecified fall, initial encounter (5) Stroke Code(s): I63.9 - CEREBRAL INFARCTION, UNSPECIFIED (6) Toxic metabolic encephalopathy Code(s): [id number] - (7) Hip fx Code(s): S72.009A - FRACTURE OF UNSP PART OF NECK OF UNSP FEMUR, INIT (8) Altered mental state Code(s): R41.82 - ALTERED MENTAL STATUS, UNSPECIFIED IMP ALTERED MENAL STATUS ? CVA H/O MULTIPLE CVAs ? SEIZURES S/P R HIP FX SECONDARY TO MECHANICAL FALL HYPOXEMIA ? ASPIRATION AFIB [place]S GERD ACUTE ON CHRONIC KIDNEY DISEASE PLAN SUPPLEMENTAL O2 TO MAINTAIN SATURATION ASPIRATION PRECAUTIONS MONITOR OFF ABX FOR NOW NEURO WORKUP ONGOING Dr Anglin
--- NOTE | 2019-11-27 16:29 | PN ---
Progress Note (short form) - Note Progress Note: mental status improving knows she is in the hospital Vital Signs Period Temp Pulse Resp BP Sys/Turcios Pulse Ox Last 24 Hr 97.6 F-98.4 F 64-82 16-20 100-141/44-73 93-100 cor-rrr lungs clear abd soft,nt ext no edema dressing right hip CBC, BMP 11/27/19 06:39 11/27/19 06:39 cultures pending a/p mental status improving- ?cva, ?seizure f/u per neurology e neurology f/u CKD- improved s/p multiple cvas f/u cultures observe off antibiotics Problem List - Problems (1) Altered mental state Code(s): R41.82 - ALTERED MENTAL STATUS, UNSPECIFIED (2) Fracture of femoral neck, right, closed Code(s): S72.001A - FRACTURE OF UNSP PART OF NECK OF RIGHT FEMUR, INIT Qualifiers: Encounter type: initial encounter Qualified Code(s): S72.001A - Fracture of unspecified part of neck of right femur, initial encounter for closed fracture (3) History of CVA (cerebrovascular accident) Code(s): Z86.73 - PRSNL HX OF TIA (TIA), AND CEREB INFRC W/O RESID DEFICITS (4) CKD (chronic kidney disease) Code(s): N18.9 - CHRONIC KIDNEY DISEASE, UNSPECIFIED
[2019-11-27] MEDS: ROSUVASTATIN CA 10 MG TABLET (FP) PO SCH (23:11)
[2019-11-27] MEDS: RANOLAZINE E.R. 500 MG TABLET (FP) PO SCH (23:11)
[2019-11-28] MEDS: CARBIDOPA/LEVODOPA 10/100 TABLET (FP) PO SCH ×2 (05:55→14:46)
[2019-11-28] MEDS: GABAPENTIN 300 MG CAPSULE PO SCH ×2 (05:55→14:46)
[2019-11-28 07:26] LABS: BASO % 0.9 % (0-2.0); HEMATOCRIT 29.1 % (32.4-45.2); HEMOGLOBIN 9.5 GM/dL (10.7-15.3); LYMPH % 16.6 % (8-40); MCH 28.3 pg (25.7-33.7); MCHC 32.8 g/dl (32.0-36.0); MEAN CELL VOLUME 86.5 fl (80-96); MEAN PLT VOLUME 8.3 fl (7.5-11.1); MONO % 9.8 % (3.8-10.2); NEUT % 68.7 % (42.8-82.8); PLATELET COUNT 235 K/MM3 (134-434); RBC 3.37 M/mm3 (3.60-5.2); WHITE BLOOD COUNT 5.5 K/mm3 (4.0-10.0)
[2019-11-28 07:48] LABS: ALBUMIN 2.8 g/dl (3.4-5.0); BILIRUBIN,TOTAL 1.1 mg/dL (0.2-1); BLOOD UREA NITROGEN 29.6 mg/dL (7-18); CALCIUM 10.1 mg/dL (8.5-10.1); CREATININE 2.4 mg/dL (0.55-1.3); MAGNESIUM 2.3 mg/dL (1.8-2.4); PHOSPHOROUS 2.2 mg/dL (2.5-4.9); POTASSIUM 3.8 mmol/L (3.5-5.1); TOT PROT 5.7 g/dl (6.4-8.2)
--- NOTE | 2019-11-28 09:24 | DS ---
Physical Examination Vital Signs: Vital Signs Temperature 97.7 F 11/27/19 22:00 Pulse Rate 71 11/27/19 22:00 Respiratory Rate 18 11/27/19 22:00 Blood Pressure 155/64 11/27/19 22:00 O2 Sat by Pulse Oximetry (%) 94 L 11/27/19 22:00 Cardiovascular: Yes: S1, S2 Respiratory: Yes: Regular, CTA Bilaterally Gastrointestinal: Yes: Normal Bowel Sounds, Soft. No: Tenderness Labs: CBC, BMP 11/28/19 06:38 11/28/19 06:38 Discharge Summary Problems reviewed: Yes Reason For Visit: CLOSED FRACTURE OF NECK OF RIGHT FEMUR Current Active Problems TEJA (acute kidney injury) (Acute) Anemia (Acute) CKD (chronic kidney disease) (Acute) Fall (Acute) Fracture of femoral neck, right, closed (Acute) Hip fx (Acute) History of CVA (cerebrovascular accident) (Acute) Hypoxemia (Acute) Hospital Course: - Problems (1) TEJA (acute kidney injury) Assessment/Plan: -Cr improving -Nephrology consult -U/S renal: BL renal cyst -Continue IVF -Monitor trend Problems reviewed: Yes Code(s): N17.9 - ACUTE KIDNEY FAILURE, UNSPECIFIED (2) Anemia Assessment/Plan: -hgb 9 -Iron % low -Injectafer once done -PRBC one unit -Iron polysaccharide 150 mg po daily -B 12, thyroid profile normal Problems reviewed: Yes Code(s): D64.9 - ANEMIA, UNSPECIFIED (3) Fall Assessment/Plan: -Safety precautions -Physical therapy -SNF Problems reviewed: Yes Code(s): W19.XXXA - UNSPECIFIED FALL, INITIAL ENCOUNTER Qualifiers: Encounter type: initial encounter Qualified Code(s): W19.XXXA - Unspecified fall, initial encounter (4) Fracture of femoral neck, right, closed Assessment/Plan: -Seen by orthopedic surgery -S/P right femoral neck fixation -Physical therapy -Pain management: Acetaminophen 1g Q6H PRN for pain Problems reviewed: Yes Code(s): S72.001A - FRACTURE OF UNSP PART OF NECK OF RIGHT FEMUR, INIT Qualifiers: Encounter type: initial encounter Qualified Code(s): S72.001A - Fracture of unspecified part of neck of right femur, initial encounter for closed fracture (5) Altered mental state Assessment/Plan: -Lethargic slightly improved -ct no evidence of CVA -Afebrile -cultures done--urine positive--start cipro -Labs noted Problems reviewed: Yes Code(s): R41.82 - ALTERED MENTAL STATUS, UNSPECIFIED (6) Diabetes mellitus Assessment/Plan: -A1c at 6.3 -D/C BGM--do stat bgm -D/C ISS Problems reviewed: Yes Code(s): E11.9 - TYPE 2 DIABETES MELLITUS WITHOUT COMPLICATIONS dc snf with further monitoring Condition: Stable - Instructions Diet, Activity, Other Instructions: CBCD AND CMP ON SUNDAY Disposition: ASSISTED FACILITY - Home Medications Comprehensive Discharge Medication List: Ambulatory Orders Apixaban [Eliquis -] 5 mg PO BID 11/21/19 Carbidopa/Levodopa [Carbidopa-Levodopa 10-100 Tab] 1 each PO TID 11/21/19 Cholecalciferol (Vitamin D3) [Vitamin D -] 125 mcg PO DAILY 11/21/19 Duloxetine HCl [Cymbalta -] 60 mg PO DAILY 11/21/19 Gabapentin 300 mg PO TID 11/21/19 Pantoprazole Sodium [Protonix] 40 mg PO DAILY 11/21/19 Polyethylene Glycol 300 17 gm PO DAILY 11/21/19 Ranolazine [Ranexa] 1,000 mg PO DAILY 11/21/19 Ranolazine [Ranexa] 500 mg PO HS 11/21/19 Rosuvastatin [Crestor -] 40 mg PO DAILY 11/21/19 Ciprofloxacin [Cipro -] 250 mg PO BID tablet 11/28/19 Docusate Sodium [Colace -] 100 mg PO BID PRN capsule 11/28/19 Iron Polysaccharides [Niferex-150 -] 150 mg PO DAILY capsule 11/28/19
[2019-11-28] MEDS ORDERED: PT OWN MED DRAWER 7, Y5N ONE ×2 (10:12→13:53)
[2019-11-28] MEDS: APIXABAN 5 MG TABLET PO SCH (10:21)
[2019-11-28] MEDS: RANOLAZINE E.R. 1,000 MG TABLET (FP) PO SCH (10:21)
[2019-11-28] MEDS: PANTOPRAZOLE 40 MG TABLET PO SCH (10:21)
[2019-11-28] MEDS: DULoxetine HCL 30 MG CAPSULE.DR PO SCH (10:21)
[2019-11-28] MEDS: POLYETHYLENE GLYCOL 3350 119 GM BTL PO SCH (10:21)
[2019-11-28] MEDS: IRON POLYSACCHARIDES 150 MG CAPSULE PO SCH (10:21)
[2019-11-28 11:33] VITALS: BMI 23.8
--- NOTE | 2019-11-28 11:35 | PN ---
Progress Note, Physician History of Present Illness: seen and examined today in nad. no overnight events. - Current Medication List Current Medications: Active Medications Acetaminophen (Tylenol -) 1,000 mg PO Q6H PRN PRN Reason: PAIN LEVEL 1-5 Last Admin: 11/25/19 21:09 Dose: 1,000 mg Documented by: Apixaban (Eliquis -) 5 mg PO BID [facility] Last Admin: 11/28/19 10:21 Dose: 5 mg Documented by: Carbidopa/Levodopa (Sinemet 10/100 -) 1 each PO TID [facility] Last Admin: 11/28/19 05:55 Dose: 1 each Documented by: Docusate Sodium (Colace -) 100 mg PO BID PRN PRN Reason: CONSTIPATION Last Admin: 11/25/19 09:37 Dose: 100 mg Documented by: Duloxetine HCl (Cymbalta -) 60 mg PO DAILY [facility] Last Admin: 11/28/19 10:21 Dose: 60 mg Documented by: Gabapentin (Neurontin -) 300 mg PO TID [facility] Last Admin: 11/28/19 05:55 Dose: 300 mg Documented by: Levofloxacin (Levaquin -) 250 mg PO DAILY [facility] Last Admin: 11/28/19 10:21 Dose: 250 mg Documented by: Pantoprazole Sodium (Protonix -) 40 mg PO DAILY [facility] Last Admin: 11/28/19 10:21 Dose: 40 mg Documented by: Polyethylene Glycol (Miralax (For Daily Use) -) 17 gm PO DAILY [facility] Last Admin: 11/28/19 10:21 Dose: 17 gm Documented by: Polysaccharide Iron Complex (Niferex-150 -) 150 mg PO DAILY [facility] Last Admin: 11/28/19 10:21 Dose: 150 mg Documented by: Ranolazine (Ranexa -) 1,000 mg PO DAILY [facility] Last Admin: 11/28/19 10:21 Dose: 1,000 mg Documented by: Ranolazine (Ranexa -) [address] [facility] Last Admin: 11/27/19 23:11 Dose: 500 mg Documented by: Rosuvastatin Calcium (Crestor -) [address] [facility] Last Admin: 11/27/19 23:11 Dose: 10 mg Documented by: - Objective Vital Signs: Vital Signs Temperature 97.7 F 11/27/19 22:00 Pulse Rate 71 11/27/19 22:00 Respiratory Rate 18 11/27/19 22:00 Blood Pressure 155/64 11/27/19 22:00 O2 Sat by Pulse Oximetry (%) 94 L 11/27/19 22:00 Constitutional: Yes: No Distress, Calm Eyes: Yes: Conjunctiva Clear, EOM Intact HENT: Yes: Atraumatic, Normocephalic Neck: Yes: Supple, Trachea Midline Cardiovascular: Yes: Regular Rate and Rhythm, S1, S2. No: Bradycardia, Tachycardia, Pulse Irregular, Bruit, JVD, Gallop, Murmur, Rub, S3, S4, Varicosities Respiratory: Yes: Regular. No: Rales, Rhonchi, Wheezes Gastrointestinal: Yes: Normal Bowel Sounds, Soft. No: Distention, Tenderness Extremities: Yes: WNL Edema: No Peripheral Pulses WNL: Yes Neurological: Yes: Alert Psychiatric: Yes: Alert Labs: CBC, BMP 11/28/19 06:38 11/28/19 06:38 INR, PTT INR 1.29 (0.83-1.09) H 11/23/19 12:37 - ....Imaging Chest X-ray: Report Reviewed, Image Reviewed EKG: Report Reviewed, Image Reviewed Other: Report Reviewed, Image Reviewed (tele-nsr, [facility]) Assessment/Plan 69 year old woman pmh multiple CVAs with residual deficits, parkinsons, CKD, h/o Afib on eliquis, [place] resident admitted with R hip fracture after a fall s/p surgical fixation found today with AMS, constricted pupils, minimally r esponsive, with concern for CVA. CT head showed no acute stroke or bleed. AMS -does not appear to be of cardiac etiology -h/o CVA x 7 -CT head reported no acute CVA or bleed -Neurology following, planned for MRI -pt has history of AFib and is on eliquis. Eliquis was held for surgery but resumed 11/24 -cont eliquis as long as safe from a neurologic standpoint (ie confirm no evidence of ICH) Afib -nsr on admission and on tele thus far -cont eliquis as long as safe as above -does not require AV tabitha blockers at this time No additional inpatient cardiac work up is needed at this time. will see pt as needed. please call with any additional questions.
--- NOTE | 2019-11-28 11:46 | PN ---
Progress Note, [employer] - Note Progress Note: Placed on soft regular diet/thin liquids yesterday, tolerated well. Reported c onfusion/combative later in day Selected Entries 11/27/19 11/27/19 11/27/19 05:46 09:00 09:07 Breakfast Diet Tolerated Lunch O2 Sat by Pulse 93 L 96 96 Oximetry (%) Oxygen Delivery Room Air Method 11/27/19 11/27/19 11/27/19 14:00 21:00 22:00 Breakfast Diet Tolerated Lunch 50% O2 Sat by Pulse 93 L 94 L Oximetry (%) Oxygen Delivery Room Air Method 11/28/19 10:34 Breakfast 25% Diet Tolerated Well Lunch O2 Sat by Pulse Oximetry (%) Oxygen Delivery Method Laboratory Tests 11/21/19 11/27/19 11/28/19 22:30 12:30 06:38 WBC 5.5 COVID-19 ([facility]) Not detected Pending
--- NOTE | 2019-11-28 14:30 | PN ---
Progress Note, Physician History of Present Illness: Pt seen and examined at bedside. She has poor po intake. - Current Medication List Current Medications: Active Medications Acetaminophen (Tylenol -) 1,000 mg PO Q6H PRN PRN Reason: PAIN LEVEL 1-5 Last Admin: 11/25/19 21:09 Dose: 1,000 mg Documented by: Apixaban (Eliquis -) 5 mg PO BID [facility] Last Admin: 11/28/19 10:21 Dose: 5 mg Documented by: Carbidopa/Levodopa (Sinemet 10/100 -) 1 each PO TID [facility] Last Admin: 11/28/19 05:55 Dose: 1 each Documented by: Docusate Sodium (Colace -) 100 mg PO BID PRN PRN Reason: CONSTIPATION Last Admin: 11/25/19 09:37 Dose: 100 mg Documented by: Duloxetine HCl (Cymbalta -) 60 mg PO DAILY [facility] Last Admin: 11/28/19 10:21 Dose: 60 mg Documented by: Gabapentin (Neurontin -) 300 mg PO TID [facility] Last Admin: 11/28/19 05:55 Dose: 300 mg Documented by: Levofloxacin (Levaquin -) 250 mg PO DAILY [facility] Last Admin: 11/28/19 10:21 Dose: 250 mg Documented by: Pantoprazole Sodium (Protonix -) 40 mg PO DAILY [facility] Last Admin: 11/28/19 10:21 Dose: 40 mg Documented by: Polyethylene Glycol (Miralax (For Daily Use) -) 17 gm PO DAILY [facility] Last Admin: 11/28/19 10:21 Dose: 17 gm Documented by: Polysaccharide Iron Complex (Niferex-150 -) 150 mg PO DAILY [facility] Last Admin: 11/28/19 10:21 Dose: 150 mg Documented by: Ranolazine (Ranexa -) 1,000 mg PO DAILY [facility] Last Admin: 11/28/19 10:21 Dose: 1,000 mg Documented by: Ranolazine (Ranexa -) 500 mg PO [facility] Last Admin: 11/27/19 23:11 Dose: 500 mg Documented by: Rosuvastatin Calcium (Crestor -) 10 mg PO [facility] Last Admin: 11/27/19 23:11 Dose: 10 mg Documented by: - Objective Vital Signs: Vital Signs Temperature 97.7 F 11/28/19 10:00 Pulse Rate 68 11/28/19 10:00 Respiratory Rate 18 11/28/19 10:00 Blood Pressure 156/73 11/28/19 10:00 O2 Sat by Pulse Oximetry (%) 96 11/28/19 10:00 Constitutional: Yes: Calm Eyes: Yes: Conjunctiva Clear HENT: Yes: Atraumatic Cardiovascular: Yes: S1, S2 Respiratory: Yes: CTA Bilaterally Gastrointestinal: Yes: Soft Genitourinary: Yes: WNL Musculoskeletal: Yes: WNL Edema: No Neurological: Yes: Oriented Psychiatric: Yes: Oriented Labs: CBC, BMP 11/28/19 06:38 11/28/19 06:38 INR, PTT INR 1.29 (0.83-1.09) H 11/23/19 12:37 Assessment/Plan Current Medications Generic Name Dose Route Start Last Admin Trade Name Freq PRN Reason Stop Dose Admin Acetaminophen 1,000 mg 11/23/19 14:42 11/25/19 21:09 Tylenol - PO 1,000 mg Q6H PRN Administration PAIN LEVEL 1-5 Apixaban 5 mg 11/25/19 10:00 11/28/19 10:21 Eliquis - PO 5 mg BID [facility] Administration Carbidopa/Levodopa 1 each 11/23/19 22:00 11/28/19 05:55 Sinemet 10/100 - PO 1 each TID [facility] Administration Docusate Sodium 100 mg 11/23/19 14:44 11/25/19 09:37 Colace - PO 100 mg BID PRN Administration CONSTIPATION Duloxetine HCl 60 mg 11/24/19 10:00 11/28/19 10:21 Cymbalta - PO 60 mg DAILY [facility] Administration Gabapentin 300 mg 11/23/19 14:00 11/28/19 05:55 Neurontin - PO 300 mg TID [facility] Administration Levofloxacin 250 mg 11/28/19 10:00 11/28/19 10:21 Levaquin - PO 250 mg DAILY [facility] Administration Pantoprazole Sodium 40 mg 11/24/19 10:00 11/28/19 10:21 Protonix - PO 40 mg DAILY [facility] Administration Polyethylene Glycol 17 gm 11/24/19 10:00 11/28/19 10:21 Miralax (For Daily Use) - PO 17 gm DAILY [facility] Administration Polysaccharide Iron Complex 150 mg 11/24/19 10:00 11/28/19 10:21 Niferex-150 - PO 150 mg DAILY [facility] Administration Ranolazine 1,000 mg 11/24/19 10:00 11/28/19 10:21 Ranexa - PO 1,000 mg DAILY [facility] Administration Ranolazine 500 mg 11/23/19 22:00 11/27/19 23:11 Ranexa - PO 500 mg HS [facility] Administration Rosuvastatin Calcium 10 mg 11/23/19 22:00 11/27/19 23:11 Crestor - PO 10 mg HS [facility] Administration 1. Acute on chronic renal insuffiency 2. CKD 3. Hip fracture 4. Dementia 5. Anemia 6. Hyperchloremia 7. Renal cysts Plan - encourage po intake - cont to monitor renal function - avoid dehydration - avoid nsaids - monitor hg
--- NOTE | 2019-11-28 15:12 | PN ---
Progress Note, Physician History of Present Illness: progressively getting slightly better. Seen by cardiology still on telemetry no events normal attention span - Current Medication List Current Medications: Active Medications Acetaminophen (Tylenol -) 1,000 mg PO Q6H PRN PRN Reason: PAIN LEVEL 1-5 Last Admin: 11/25/19 21:09 Dose: 1,000 mg Documented by: Apixaban (Eliquis -) 5 mg PO BID [facility] Last Admin: 11/28/19 10:21 Dose: 5 mg Documented by: Carbidopa/Levodopa (Sinemet 10/100 -) 1 each PO TID [facility] Last Admin: 11/28/19 14:46 Dose: 1 each Documented by: Docusate Sodium (Colace -) 100 mg PO BID PRN PRN Reason: CONSTIPATION Last Admin: 11/25/19 09:37 Dose: 100 mg Documented by: Duloxetine HCl (Cymbalta -) 60 mg PO DAILY [facility] Last Admin: 11/28/19 10:21 Dose: 60 mg Documented by: Gabapentin (Neurontin -) 300 mg PO TID [facility] Last Admin: 11/28/19 14:46 Dose: 300 mg Documented by: Levofloxacin (Levaquin -) 250 mg PO DAILY [facility] Last Admin: 11/28/19 10:21 Dose: 250 mg Documented by: Pantoprazole Sodium (Protonix -) 40 mg PO DAILY [facility] Last Admin: 11/28/19 10:21 Dose: 40 mg Documented by: Polyethylene Glycol (Miralax (For Daily Use) -) 17 gm PO DAILY [facility] Last Admin: 11/28/19 10:21 Dose: 17 gm Documented by: Polysaccharide Iron Complex (Niferex-150 -) 150 mg PO DAILY [facility] Last Admin: 11/28/19 10:21 Dose: 150 mg Documented by: Ranolazine (Ranexa -) 1,000 mg PO DAILY [facility] Last Admin: 11/28/19 10:21 Dose: 1,000 mg Documented by: Ranolazine (Ranexa -) 500 mg PO [facility] Last Admin: 11/27/19 23:11 Dose: 500 mg Documented by: Rosuvastatin Calcium (Crestor -) 10 mg PO [facility] Last Admin: 11/27/19 23:11 Dose: 10 mg Documented by: - Objective Vital Signs: Vital Signs Temperature 97.7 F 11/28/19 10:00 Pulse Rate 68 11/28/19 10:00 Respiratory Rate 18 11/28/19 10:00 Blood Pressure 156/73 11/28/19 10:00 O2 Sat by Pulse Oximetry (%) 96 11/28/19 10:00 Constitutional: Yes: Well Nourished Eyes: Yes: WNL Neurological: Yes: Alert, Oriented, Babinski positive, Cran Nerves II-XII Intact ...Motor Strength: WNL Labs: CBC, BMP 11/28/19 06:38 11/28/19 06:38 INR, PTT INR 1.29 (0.83-1.09) H 11/23/19 12:37 Problem List - Problems (1) Altered mental state Code(s): R41.82 - ALTERED MENTAL STATUS, UNSPECIFIED (2) Encephalitis Code(s): G04.90 - ENCEPHALITIS AND ENCEPHALOMYELITIS, UNSPECIFIED (3) Stroke Code(s): I63.9 - CEREBRAL INFARCTION, UNSPECIFIED Assessment/Plan 1. EEG as an outpatient. 2. Out of bed to chair. 3. Fall precautions. 4. Follow-up with cardiology. Discharge planning
[2019-11-28] MEDS: ACETAMINOPHEN 500 MG TABLET (FP) PO PRN (15:44)
--- NOTE | 2019-11-28 15:52 | PN ---
Progress Note (short form) - Note Progress Note: Clinically appears better today. Breathing is nonlabored. No acute events overnight. Intake & Output 11/25/19 11/26/19 11/27/19 11/28/19 23:59 23:59 23:59 23:59 Intake Total 2071 167 6732 Output Total 500 Balance 1776 771 0087 -500 Weight 159 lb 11.2 oz 157 lb 2 oz 157 lb Last Vital Signs Temp Pulse Resp BP Pulse Ox 97.7 F 68 18 156/73 96 11/28/19 10:00 11/28/19 10:00 11/28/19 10:00 11/28/19 10:00 11/28/19 10:00 Active Medications Acetaminophen (Tylenol -) 1,000 mg PO Q6H PRN PRN Reason: PAIN LEVEL 1-5 Last Admin: 11/25/19 21:09 Dose: 1,000 mg Documented by: Apixaban (Eliquis -) 5 mg PO BID [facility] Last Admin: 11/28/19 10:21 Dose: 5 mg Documented by: Carbidopa/Levodopa (Sinemet 10/100 -) 1 each PO TID [facility] Last Admin: 11/28/19 14:46 Dose: 1 each Documented by: Docusate Sodium (Colace -) 100 mg PO BID PRN PRN Reason: CONSTIPATION Last Admin: 11/25/19 09:37 Dose: 100 mg Documented by: Duloxetine HCl (Cymbalta -) 60 mg PO DAILY [facility] Last Admin: 11/28/19 10:21 Dose: 60 mg Documented by: Gabapentin (Neurontin -) 300 mg PO TID [facility] Last Admin: 11/28/19 14:46 Dose: 300 mg Documented by: Levofloxacin (Levaquin -) 250 mg PO DAILY [facility] Last Admin: 11/28/19 10:21 Dose: 250 mg Documented by: Pantoprazole Sodium (Protonix -) 40 mg PO DAILY [facility] Last Admin: 11/28/19 10:21 Dose: 40 mg Documented by: Polyethylene Glycol (Miralax (For Daily Use) -) 17 gm PO DAILY [facility] Last Admin: 11/28/19 10:21 Dose: 17 gm Documented by: Polysaccharide Iron Complex (Niferex-150 -) 150 mg PO DAILY [facility] Last Admin: 11/28/19 10:21 Dose: 150 mg Documented by: Ranolazine (Ranexa -) 1,000 mg PO DAILY [facility] Last Admin: 11/28/19 10:21 Dose: 1,000 mg Documented by: Ranolazine (Ranexa -) [address] [facility] Last Admin: 11/27/19 23:11 Dose: 500 mg Documented by: Rosuvastatin Calcium (Crestor -) [address] [facility] Last Admin: 11/27/19 23:11 Dose: 10 mg Documented by: Constitutional: Yes: No Distress HENT: Yes: Atraumatic Neck: Yes: Supple Respiratory: Yes: few scattered rhonchi Gastrointestinal: Yes: Soft Edema: No Neurological: Yes: Awake, confused Labs: Laboratory Results - last 24 hr 11/21/19 11/27/19 11/28/19 22:30 12:30 06:38 WBC 5.5 RBC 3.37 L Hgb 9.5 L Hct 29.1 L D MCV 86.5 MCH 28.3 MCHC 32.8 RDW 18.0 H Plt Count 235 MPV 8.3 Absolute Neuts (auto) 3.8 Neutrophils % 68.7 Lymphocytes % 16.6 D Monocytes % 9.8 Eosinophils % 4.0 Basophils % 0.9 Nucleated RBC % 0 Sodium Potassium Chloride Carbon Dioxide Anion Gap BUN Creatinine Est GFR (CKD-EPI)AfAm Est GFR (CKD-EPI)NonAf Random Glucose Calcium Phosphorus Magnesium Total Bilirubin AST ALT Alkaline Phosphatase Total Protein Albumin COVID-19 ([facility]) Not detected Not detected 11/28/19 06:38 WBC RBC Hgb Hct MCV MCH MCHC RDW Plt Count MPV Absolute Neuts (auto) Neutrophils % Lymphocytes % Monocytes % Eosinophils % Basophils % Nucleated RBC % Sodium 139 Potassium 3.8 Chloride 106 Carbon Dioxide 27 Anion Gap 6 L BUN 29.6 H Creatinine 2.4 H Est GFR (CKD-EPI)AfAm 23.10 Est GFR (CKD-EPI)NonAf 19.93 Random Glucose 172 H Calcium 10.1 Phosphorus 2.2 L Magnesium 2.3 Total Bilirubin 1.1 H AST 18 ALT 8 L Alkaline Phosphatase 72 Total Protein 5.7 L Albumin 2.8 L COVID-19 ([facility]) Problem List - Problems (1) Hypoxemia Code(s): R09.02 - HYPOXEMIA (2) TEJA (acute kidney injury) Code(s): N17.9 - ACUTE KIDNEY FAILURE, UNSPECIFIED (3) Anemia Code(s): D64.9 - ANEMIA, UNSPECIFIED (4) Fall Code(s): W19.XXXA - UNSPECIFIED FALL, INITIAL ENCOUNTER Qualifiers: Encounter type: initial encounter Qualified Code(s): W19.XXXA - Unspecified fall, initial encounter (5) Stroke Code(s): I63.9 - CEREBRAL INFARCTION, UNSPECIFIED (6) Toxic metabolic encephalopathy Code(s): CKW3820 - (7) Hip fx Code(s): S72.009A - FRACTURE OF UNSP PART OF NECK OF UNSP FEMUR, INIT (8) Altered mental state Code(s): R41.82 - ALTERED MENTAL STATUS, UNSPECIFIED IMP ALTERED MENAL STATUS ? CVA H/O MULTIPLE CVAs ? SEIZURES S/P R HIP FX SECONDARY TO MECHANICAL FALL HYPOXEMIA ? ASPIRATION AFIB [place] GERD ACUTE ON CHRONIC KIDNEY DISEASE PLAN SUPPLEMENTAL O2 TO MAINTAIN SATURATION ASPIRATION PRECAUTIONS MONITOR OFF ABX FOR NOW NEURO MONITORING Dr Anglin
[2019-11-28 20:04] VITALS: BP 155/78; PULSE 85; TEMP 98.7
== END 2019-11-28 20:22 | DRG 480 ==
LOC: JER 16:14 → JERBED 22:33 → J5S 11-22 02:10 → J6S 11-23 12:04 → UNDODISIN 11-23 13:52 → J6S 11-23 18:10 → J4S 11-26 11:01
PROVIDERS: ADMIT Internal Medicine; ATTEND Family Medicine
PROC: 0QH634Z Insertion of Internal Fixation Device into Right Upper Femur, Percutaneous Approach (ICD-10-PCS; principal; 2019-11-23 08:00)
DX: S72.001A Fracture of unspecified part of neck of right femur, initial encounter for closed fracture (principal); G92 Toxic encephalopathy; N17.9 Acute kidney failure, unspecified; R47.01 Aphasia; I69.328 Other speech and language deficits following cerebral infarction; N18.3 Chronic kidney disease, stage 3 (moderate); G20 Parkinson's disease; M25.551 Pain in right hip; Z99.3 Dependence on wheelchair; W19.XXXA Unspecified fall, initial encounter; R41.82 Altered mental status, unspecified; E11.22 Type 2 diabetes mellitus with diabetic chronic kidney disease; D63.1 Anemia in chronic kidney disease; N18.9 Chronic kidney disease, unspecified; R94.31 Abnormal electrocardiogram [ECG] [EKG]; I69.398 Other sequelae of cerebral infarction; R26.9 Unspecified abnormalities of gait and mobility; I48.91 Unspecified atrial fibrillation; N28.1 Cyst of kidney, acquired; R09.02 Hypoxemia
CPT/HCPCS: 36415; 36430; 36511; 36600; 70450-TC; 70496-TC; 70498-TC; 71045-TC-FY; 72192-TC; 73502-TC-RT-FY; 73523-TC-FY; 73552-TC-RT-FY; 76000-TC-FY; 76775-TC; 80048; 80053; 80061; 81003; 82140; 82607; 82728; 82803; 82962; 83036; 83540; 83550; 83605; 83721; 83735; 84100; 84439; 84443; 84466; 85025; 85027; 85044; 85610; 85730; 86850; 86900; 86901; 86922; 87040; 87086; 87186; 93005; 93010; 93970-TC; 94760; 97116-GP; 97162-GP; 99285-25; J0131; J0885; J1439; P9016; P9038; Q9967; U0003